=== PATIENT | male | born 1945 | race Caucasian/White ===

== ENCOUNTER → 2016-05-28 | Outpatient (CLI) | payer MEDICARE ==
[~2016-05-28] VITALS: Ht 180.3 cm; Wt 93.0 kg
[~2016-05-28] MED LIST: ALLO300T2 PO; ASPI-586 PO; CHOL500044 PO; CYAN50008 PO; FOLI1TAB24 PO; GEMF600T3 PO; IRON18TA PO; LINA5TAB PO; METH2.5T PO; MULT-1029 PO; NS IV 1000 ML 1,000 ML ONE; OMEG300C3 PO; OXYC-12 PO; SAW450CA4 PO; TAMS0.4C2 PO; TRAM50TA2 PO; TRAZ-28 PO; VITA-37 PO
--- OUTSIDE RECORDS SUMMARY | 2016-05-28 10:37 | XMS REPORT | Continuity of Care Document ---
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 Active 05/25/2006 Medical [facility] Diabetes mellitus type II Active 05/25/2006 Medical 2011 [facility] Diabetes mellitus type 2 (disorder) Active 03/14/2006 Problem 01/01/2016 [facility] HDL deficiency Active 1997 Medical 04/14/2011 [facility] High density lipoprotein deficiency (disorder) Active 03/14/1997 Problem 01/01/2016 [facility] Chronic gout Active 1963 Medical 04/14/2011 [facility] Colitis, Ulcerative Active Medical 04/14/2011 [facility] Psoriasis.. Active 1963 Medical 05/30/2014 [facility] Psoriasis Active 1963 Medical 04/14/2011 [facility] Gout (disorder) Active 1963 Problem 01/01/2016 [facility] Ulcerative colitis (disorder) Active 03/14/1963 Problem [facility] Psoriasis (disorder) Active 03/14/1963 Problem 01/01/2016 [facility] Cervical disc disorder (disorder) Active Problem 2015 [facility] Chronic kidney disease stage 3 (disorder) Active Problem 01/01/2016 [facility] Muscle spasm of cervical muscle of neck (disorder) Active Problem 01/01/2016 [facility] Spinal stenosis in cervical region (disorder) Active Problem 01/01/2016 [facility] Cobalamin deficiency (disorder) Active Problem 2015 [facility] Vitreous opacities (disorder) Active Problem 01/01/2016 Right eye [facility] Vitamin B12 deficiency.. Active Medical 04/14/2011 [facility] Chronic Kidney Disease (CKD), Stage III (Moderate) Active Medical 04/23/2013 [facility] Muscle spasm of cervical muscle of neck Active Medical [facility] Cervical disc disorder Active Medical 07/23/2013 [facility] Spinal stenosis in cervical region Active Medical 2013 [facility] Type 2 diabetes mellitus Active Medical 08/08/2013 [facility] Vitreous opacities Active Medical 12/04/2013 Right eye [facility] Vitamin B12 deficiency Active Medical 04/14/2011 [facility] Medications Medication Details Route Status Patient Instructions Ordering Provider Order Date Source amlodipine 10 mg oral tablet PO Active SETHI 12/04/2013 [facility] Azithromycin 5 Day Dose Pack 250 mg oral tablet Active as directed on package labeling JOSSIE 12/04/2013 [facility] methotrexate 2.5 mg oral tablet PO Active HENRY 12/04/2013 [facility] Flomax 0.4 mg oral capsule PO Active SETHI 10/16/2013 [facility] methotrexate 2.5 mg oral tablet PO Discontinued HENRY 09/21/2013 [facility] folic acid 1 mg oral tablet PO Active HENRY 08/28/2013 [facility] Saw [place] PO Documented 08/27/2013 [facility] Alpha Lipoic Acid PO Documented 08/27/2013 [facility] L-Arginine 500 mg oral capsule PO Documented 08/27/2013 [facility] Vitamin B Complex oral tablet PO Documented 08/27/2013 [facility] calcitriol Discontinued 0.25 mcg PO Mon, Wed, Fri 08/27/2013 [facility] folic acid 1 mg oral tablet PO Discontinued HENRY 08/24/2013 [facility] lisinopril 20 mg oral tablet PO Discontinued 08/20/2013 [facility] diazepam 10 mg oral tablet PO Discontinued 08/20/2013 [facility] Vitamin B-12 Documented taking 3000mcg daily 08/20/2013 [facility] Viagra 100 mg oral tablet PO Active 1 hour before sexual activity SRIDHAR 2013 [facility] tizanidine 4 mg oral tablet PO Active [facility] 08/07[facility]2013 [facility] tizanidine 4 mg oral tablet PO Discontinued FLORINKEN 07/17/2013 [facility] hydrochlorothiazide 25 mg oral tablet PO Active SRIDHAR 07/02/2013 [facility] tramadol 50 mg oral tablet PO Active HENRY 06/29/2013 [facility] methotrexate 2.5 mg oral tablet PO Discontinued HENRY 06/29/2013 [facility] hydrochlorothiazide 12.5 mg oral tablet Discontinued VORAN 06/28/2013 [facility] tramadol 50 mg oral tablet PO Discontinued HENRY 06/25/2013 [facility] Fish Oil 1200 mg oral capsule PO Documented 06/18/2013 [facility] ferrous sulfate 325 mg (65 mg elemental iron) oral delayed release tablet PO Documented 06/18/2013 [facility] Centrum Silver Men's oral tablet Documented 06/18/2013 [facility] glipiZIDE 5 mg oral tablet PO Documented 06/16/2013 [facility] methotrexate 5 mg oral tablet PO Discontinued On Tuesday' s Only 05/22/2013 [facility] folic acid 1 mg oral tablet PO Discontinued 05/22/2013 [facility] allopurinol 300 mg oral tablet PO Active VORAN 04/30/2013 [facility] lisinopril 20 mg oral tablet PO Completed VORAN 04/16/2013 [facility] Restoril 15 mg oral capsule PO Completed VORAN 02/15/2013 [facility] Restoril 15 mg oral capsule PO Discontinued VORAN 02/14/2013 [facility] lisinopril 20 mg oral tablet PO Discontinued VORAN 02/05/2013 [facility] Restoril 15 mg oral capsule PO Discontinued VORAN 01/24/2013 [facility] hydrochlorothiazide 12.5 mg oral capsule Discontinued TAKE ONE CAPSULE BY MOUTH EVERY DAY VORAN 01/24/2013 [facility] lisinopril 20 mg oral tablet PO Discontinued VORAN 01/11/2013 [facility] amlodipine 10 mg oral tablet PO Active VORAN 12/20/2012 [facility] metoprolol tartrate 100 mg oral tablet PO Discontinued SETHI 12/20/2012 [facility] metoprolol tartrate 25 mg oral tablet PO Discontinued VORAN 10/30/2012 [facility] lisinopril 10 mg oral tablet PO Discontinued VORAN 10/29/2012 [facility] amlodipine 5 mg oral tablet PO Discontinued VORAN 10/29/2012 [facility] Flomax 0.4 mg oral capsule PO Discontinued SETHI 10/29/2012 [facility] Flomax 0.4 mg oral capsule PO Discontinued VORAN 10/05/2012 [facility] metoprolol tartrate 25 mg oral tablet PO Discontinued VORAN 10/05/2012 [facility] Pentasa PO Discontinued 10/05/2012 [facility] amlodipine 5 mg oral tablet PO Discontinued VORAN 10/05/2012 [facility] lisinopril 10 mg oral tablet PO Discontinued VORAN 10/05/2012 [facility] selenium 50 mcg oral tablet Discontinued 07/26/2012 [facility] metformin 500 mg oral tablet, extended release PO Discontinued VORAN 05/15/2012 [facility] amlodipine 2.5 mg oral tablet PO Completed VORAN 05/15/2012 [facility] gemfibrozil 600 mg oral tablet PO Active VORAN 05/15/2012 [facility] hydrochlorothiazide-valsartan 12.5 mg-320 mg oral tablet PO Completed VORAN 2012 [facility] Metoprolol Succinate ER 200 mg oral tablet, extended release PO Completed VORAN 05/15 [facility] allopurinol 300 mg oral tablet PO Discontinued VORAN 05/15/2012 [facility] aspirin 81 mg oral tablet PO Documented 05/15/2012 [facility] Viagra 50 mg oral tablet PO Discontinued 1 hour before sexual activity SETHI 2012 [facility] allopurinol 300 mg oral tablet PO Discontinued VORAN 03/21/2012 [facility] Metoprolol Succinate ER 200 mg oral tablet, extended release PO Discontinued VORAN [facility] hydrochlorothiazide-valsartan 12.5 mg-320 mg oral tablet PO Discontinued VORAN 2011 [facility] gemfibrozil 600 mg oral tablet PO Discontinued VORAN 01/13/2012 [facility] metoprolol tartrate 100 mg oral tablet PO Discontinued Pt to check blood pressure dialy for 7 days & call with blood pressure readings VORAN 12/20/2011 [facility] amlodipine 2.5 mg oral tablet PO Discontinued VORAN 11/30/2011 [facility] metoprolol tartrate 100 mg oral tablet PO Discontinued Pt to check blood pressure dialy for 7 days & call with blood pressure readings VORAN 09/03/2011 [facility] gemfibrozil 600 mg oral tablet PO Discontinued VORAN 09/02/2011 [facility] metformin 500 mg oral tablet, extended release PO Discontinued VORAN 09/02/2011 [facility] allopurinol 300 mg oral tablet PO Discontinued VORAN 09/02/2011 [facility] Metoprolol Succinate ER 100 mg oral tablet, extended release PO Discontinued VORAN [facility] Diovan HCT 320 mg-12.5 mg oral tablet PO Discontinued VORAN 09/02/2011 [facility] amlodipine 2.5 mg oral tablet PO Discontinued VORAN 08/03/2011 [facility] hydrochlorothiazide 12.5 mg oral tablet PO Completed VORAN 08/03/2011 [facility] metoprolol succinate 200 mg oral tablet, extended release PO Discontinued VORAN 06/05 [facility] Diovan HCT 320 mg-12.5 mg oral tablet PO Discontinued VORAN 04/16/2011 [facility] metformin 500 mg oral tablet, extended release PO Discontinued VORAN 01/12/2011 [facility] Welchol 625 mg oral tablet PO Completed Pt wanting written script to sent to [facility] [place] 12/02/2010 [facility] Ambien 5 mg oral tablet Discontinued call to [facility] [phone] INFORMATION 11/13/2010 [facility] gemfibrozil 600 mg oral tablet PO Discontinued V[place]AN 09/07/2010 [facility] metoprolol succinate 100 mg oral tablet, extended release PO Discontinued V[place]AN 09/05 [facility] allopurinol 300 mg oral tablet PO Discontinued V[place]AN 09/05/2010 [facility] Vitamin B12 1000 mcg/mL injectable solution IM Discontinued V[place]AN 06/08/2010 [facility] Ambien 5 mg oral tablet Completed [place] 05/13/2010 [facility] Diovan HCT 25 mg-160 mg oral tablet PO Discontinued [facility] 04/2010 [facility] Com[place] 05/11/2010 [facility] [place]ication Completed 05/11/2010 [facility] Enbrel 50 mg/mL subcutaneous solution Completed 05/11/2010 [facility] Vitamin B Complex oral capsule Discontinued 05/11/2010 [facility] potassium gluconate Discontinued 05/11/2010 [facility] Alpha Lipoic Discontinued 05/11/2010 [facility] folic acid 0.8 mg oral tablet Discontinued 05/11/2010 [facility] Vitamin C 1000 mg oral tablet PO Discontinued 05/11/2010 [facility] zinc gluconate 50 mg oral tablet Discontinued 05/11/2010 [facility] ginseng Discontinued 05/11/2010 [facility] Saw [place] Discontinued 05/11/2010 [facility] Garlic oral capsule Discontinued 05/11/2010 [facility] Selenium TR 200 mcg oral tablet Completed 05/11/2010 [facility] MSM Discontinued 05/11/2010 [facility] Milk Thistle oral tablet Discontinued 05/11/2010 [facility] glucosamine Discontinued 05/11/2010 [facility] chromium picolinate Discontinued 05/11/2010 [facility] vitamin A 8000 units oral capsule Discontinued 05/11/2010 [facility] magnesium oxide Discontinued 05/11/2010 [facility] vitamin E 400 intl units oral capsule PO Discontinued 05/11/2010 [facility] Fish Oil oral capsule Discontinued 05/11/2010 [facility] Vitamin D3 1000 intl units oral capsule Documented 05/11/2010 [facility] metformin 500 mg oral tablet, extended release PO Discontinued 05/11/2010 [facility] gemfibrozil 600 mg oral tablet PO Discontinued 05/11/2010 [facility] allopurinol 300 mg oral tablet PO Discontinued 05/11/2010 [facility] metoprolol 100 mg oral tablet, extended release PO Discontinued 05/11/2010 [facility] hydrochlorothiazide-lisinopril Discontinued 05/11/2010 [facility] hydrochlorothiazide 25 mg oral tablet </br>1 Tab, Q24H, PO, 90 Tab, 3 Number of Refills, 3, Route to Pharmacy Electronically, [facility], [id number] Inactive [facility] Vitamin B-12 </br>See Instructions, taking 3000mcg daily, 0 Number of Refills, Instructions Replace Required Details Active [facility] gemfibrozil 600 mg oral tablet </br>2 Tab, daily, PO, 180 Tab, 3 Number of Refills, 3, Route to Pharmacy Electronically, [facility], [id number] Inactive [facility] trazodone 50 mg oral tablet </br>1 Tab, AT BEDTIME, PO, 30 Tab, 1 Number of Refills, 1, [id number] [id number] Inactive [facility] Fish Oil 1200 mg oral capsule </br>1 Cap, BID, PO, 0 Number of Refills Active [facility] ferrous sulfate 325 mg (65 mg elemental iron) oral delayed release tablet </br>1 Tab, Q24H, PO, 0 Number of Refills Active [facility] Centrum Silver Men's oral tablet </br>Maintenance, 06/18/13 12:49:53, 0 Number of Refills Active [facility] lisinopril 20 mg oral tablet </br>1 Tab, daily, PO, 90 Tab, 1 Number of Refills, 1, Route to Pharmacy Electronically, [facility], [id number], TAB Active [facility] folic acid 1 mg oral tablet </br>1 Tab, daily, PO, 90 Tab, 1 Number of Refills, 1, Route to Pharmacy Electronically, [facility], [id number]- [id number], TAB Inactive [facility] Tamsulosin hydrochloride 0.4 MG Oral Capsule [Flomax] </br>1 Cap, Q24H, PO, 90 Cap, 3 Number of Refills, 3, Route to Pharmacy Electronically, [facility], [id number], CAP Inactive [facility] Saw [place] </br>450 mg, daily, PO, 0 Number of Refills Active [facility] Alpha Lipoic Acid </br>600 mg, daily, PO, 0 Number of Refills Active [facility] glipiZIDE 5 mg oral tablet </br>1 Tab, Q24H, PO, 0 Number of Refills Inactive [facility] L-Arginine 500 mg oral capsule </br>1 Cap, daily, PO, 0 Number of Refills Active [facility] Vitamin B Complex oral tablet </br>1 Tab, Q24H, PO, Maintenance, 08/27/13 11:05:53, 0 Number of Refills Active [facility] aspirin 81 mg oral tablet </br>1 Tab, Q24H, PO, 0 Number of Refills Active [facility] amlodipine 10 mg oral tablet </br>1 Tab, daily, PO, 90 Tab, 3 Number of Refills, 3, Route to Pharmacy Electronically, [facility], [id number], TAB Inactive [facility] allopurinol 300 mg oral tablet </br>1 Tab, Q24H, PO, 90 Tab, 3 Number of Refills, 3, Route to Pharmacy Electronically, [facility], [id number] Inactive [facility] methotrexate 2.5 mg oral tablet </br>4 Tab, qWeek, PO, 52 Tab, 0 Number of Refills, 0, [facility], [id number]- [id number] Inactive [facility] Vitamin D3 1000 intl units oral capsule </br>0 Number of Refills Active [facility] traMADOL 50 mg oral tablet, disintegrating </br>See Instructions, 0 Number of Refills, Instructions Replace Required Details Active [facility] nebivolol 5 MG Oral Tablet [Bystolic] </br>1 Tab, Q24H, PO, 0 Number of Refills Active [facility] PO [facility] Allergies, Adverse Reactions, Alerts Substance Category Reaction Severity Reaction type Status Date Reported Comments Source NKA Datatype(AL1.2)-Drug Allergy ACTIVE 04/22/2015 [facility] Immunizations Immunization Date Given Site Status Last Updated Comments Source Tdap 05/15/2012 Right Deltoid diphtheria/pertussis, acel/tetanus Tdap [place] [facility] diphtheria/pertussis, acel/tetanus Tdap 05/15/2012 Right Deltoid completed [place] [facility] no immunization 05/11/2010 Immunization, History no immunization 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 History of Present Illness A 70-year-old male here in followup for generalized psoriasis responsive to methotrexate. I am managing his psoriasis with methotrexate. Blood work was done recently and does have stable creatinine elevation and follows with a [place] history professor. His baseline is around 1.7 or 1.8. Was 1.77 last time. Takes 10 mg of methotrexate a week and folic acid. Rheumatological History In the past week, he reports the following... He states his pain level is at a 5/10 because of his illness (0=No pain, 5= Moderate pain, 10=Severe pain). His acceptable level of pain is 5/10 (0=No pain, 5=Moderate Pain, 10=Severe Pain ). His level of fatigue is rated 0/10, with 0=No Problem and 10=Major Problem. His level depression is rated 0/10 with 0=No Depression and 10=Severe Depression. He rates his ability to rest at night at 0/10 with 0=Sleep is not problem and 10 =Sleep is a major problem. He rates his anxiety at 0/10 with 0=Anxiety is no problem and 10=Anxiety is a major problem. He reports a level of 0/10 regarding trouble with his stomach (ie nausea, heartburn, bloating, etc.). Considering all the ways that his illness affects him, he states that he has felt 5/10 with 0=Very well and 10=Very poor. At this visit, he rates his satisfaction with his health at 3/10 with 0=Very satisfied and 10=Very dissatisfied. He rates his ability to purchase his current medications at 0/10 with 0=No difficulty, 5=Some difficulty, and 10=Extreme difficulty. FN (range 0 - 10)=0.33 PS (range 0 - 10)=1.1 RAPID3 (range 0 - 10)=3.44 Pain Assessment Cognitive Status: Independent, decisions consistent/reasonable Intensity: 6 Location: Foot Laterality: Right Review of Systems Changes From Last Visit: No Constitutional Symptoms Recent Weight Change: No Fatigue/Weakness: No Ears/Nose/Throat Hearing Loss or Ringing: Yes Chronic Sinus Problems: No Oral Ulcers: No Swollen Glands: No Dry Mouth: No Eyes Dry Eyes: No Red Eyes: No Cardiovascular Heart Trouble: No Palpitation: No Respiratory Chronic or Frequent Coughs: No Shortness Of Breath: No Asthma: No Chest Pain With Deep Breath: No Gastrointestinal Heartburn: No Ulcers: No Genitourinary Frequent Urination: No Blood In Urine: No Musculoskeletal Morning Stiffness Greater Than One Hour: No Swollen Joints: No Painful Joints: Yes Warm Joints: No Muscle Weakness: No Muscle Pain: Yes Skin Facial Rashes: Yes Hair Loss: No Unusual Rashes Related To Sunlight: No Color Changes Of Hands: No Neurological Seizures: No Frequent Recurring Headaches: No Stroke: No Psychiatric Nervousness: No Depression: No Endocrine Diabetes: Yes Heat or Cold Intolerance: No Hematological/Lymphatic History Of Anemia: No History Of Low White Count: No History Of Low Platelet Count: No History Of Blood Clots: No Miscarriages: No Immunological/Allergic History Of Abnormal Arthritis Blood Tests: No History Of A Positive ROSSI Blood Test: No Allergies NKA Current Medications allopurinol 300 mg oral tablet (allopurinol), 300 mg, Oral, Every 24 hours Alpha Lipoic Acid (alpha-lipoic acid), 600 mg, Oral, Daily amlodipine 10 mg oral tablet (amlodipine), 10 mg, Oral, Daily aspirin 81 mg oral tablet (aspirin), 81 mg, Oral, Every 24 hours Bystolic 5 mg oral tablet (nebivolol), 5 mg, Oral, Every 24 hours Centrum Silver Men's oral tablet (multivitamin with minerals) ferrous sulfate 325 mg (65 mg elemental iron) oral delayed release tablet ( ferrous sulfate), 325 mg, Oral, Every 24 hours Fish Oil 1200 mg oral capsule (omega-3 polyunsaturated fatty acids), 1,200 mg, Oral, 2 times a day Flomax 0.4 mg oral capsule (tamsulosin), 0.4 mg, Oral, Every 24 hours, Comment: faxed request from [facility] folic acid 1 mg oral tablet (folic acid), 1 mg, Oral, Daily gemfibrozil 600 mg oral tablet (gemfibrozil), 1,200 mg, Oral, Daily glipiZIDE 5 mg oral tablet (glipizide), 5 mg, Oral, Every 24 hours hydrochlorothiazide 25 mg oral tablet (hydrochlorothiazide), 25 mg, Oral, Every 24 hours L-Arginine 500 mg oral capsule (arginine), 500 mg, Oral, Daily lisinopril 20 mg oral tablet (lisinopril), 20 mg, Oral, Daily methotrexate 2.5 mg oral tablet (methotrexate), 10 mg, Oral, Every week, Comment : called to [facility] blaine Norriso ([place]), 450 mg, Oral, Daily traMADOL 50 mg oral tablet, disintegrating (tramadol) trazodone 50 mg oral tablet (trazodone), 50 mg, Oral, At bedtime Vitamin B Complex oral tablet (multivitamin), 1 Tab, Oral, Every 24 hours Vitamin B-12 (cyanocobalamin), taking 3000mcg daily Vitamin D3 1000 intl units oral capsule (cholecalciferol), Comment: 2 capsules every AM Problems and Past Medical History Active Cervical neck pain with evidence of disc disease Cervical spinal stenosis Chronic gout: Onset on 1963. Chronic Kidney Disease (CKD), Stage III (Moderate) Colitis, Ulcerative: Onset on 1963. Diabetes mellitus type II: Onset on 2006. Erectile dysfunction associated with type 2 diabetes mellitus Floaters HDL deficiency: Onset on 1997. Muscle spasm of cervical muscle of neck Psoriasis: Onset on 1963. Vitamin B12 deficiency Family History Heart disease.. Mother High blood pressure.. Father Procedure History resection of small instestine for ileitis with appendectomy x 2 surgeries at 03/1964. cholestectomy at 03/14/1984. Hx prostate biopsy Colonoscopy * at 05/25/2010. resection of small intestines at 10/12/2012. Social History Alcohol Use: Denies Caffeine Use: Current Caffeine Type: Soda Caffeine Frequency: Daily Tobacco/Nicotine Usage: Former Tobacco/Nicotine Type: Cigarettes Estimated Last Tobacco Usage Date: 09/11/12 Packs Per Day: 1 Number of Years-Tob Use: 40 Total Pack Years: 40 Recreational Drug Use: Denies Education Attained: College Physical Examination TEMP BP Pulse RR MAP O2 Sat 36.6 138/72 18 94 Blood Pressure Location: Left arm Weight Height BMI BSA 99.7 kg (219.80 lbs) 180 cm 30.8 kg/m2 2.2327 m2 General: Alert and oriented x3. No acute distress. Psychiatric: Oriented to time and place. Appropriate mood and affect. Skin: No rash. Eyes: Clear. Mouth: No oral ulcers. Lymphatics: No abnormal lymph nodes. Cardiovascular: S1 and S2, regular rate and rhythm with no murmurs. Respiratory: Bilaterally clear to auscultation with no added sounds. Gastrointestinal: Abdomen is soft. No focal tenderness. Liver and spleen nonpalpable. Musculoskeletal: No swollen or tender joints; no synovitis of any joints noted. Range of motion of joints within normal limits. [employer] strength equal bilaterally. Neurologic: Normal muscle strength, 5/5 upper and lower limbs bilaterally. Extremities: No clubbing, cyanosis or edema. Impression 1. Generalized psoriasis (L40.1). A 70-year-old male with plaque psoriasis, under good control. Plan Orders this visit: CBC with Diff -Request CHEM 12 (CMP)- Request Follow Up 6 Months -Request Future Orders: CBC with Diff - 06/22/16 09:00 CHEM12 (CMP) - 03/30/16 09:00 1. Psoriasis. -Continue methotrexate 10 mg p.o. every week and folic acid. -Blood work in 3 months and then see back in 6 mo TR: [id number] HILDA#: [id number] [Electronically Signed on 01.05.2016 04:24 PM] Danelle Henry DO FACR </br> 12/31/2015 [Electronically Signed on 01.05.2016 04:24 PM] Danelle Henry DO FACEmelia [facility] CHEM12 eGFR 38 mL/min >=60 12/24/2015 LOW Estimated eGFR Non calculated using MDRD study equation Verified by Discern Expert. The MDRD GFR formula is valid only for adults between 18 and 85 years of age. [facility] CHEM12 Bili Total 0.5 mg/dL 0.2 - 1.2 12/24/2015 N [facility] -RBC Morphology RBC Morph Normal Normal 12/24/2015 N Adela Expert RBC morphology is graded as 1, 2 , or 3 indicating a level of abnormality. 1=few/slight 2=moderate 3=marked/many [facility] -Auto Diff Blast/Atyp Lymph 40 12/24/2015 NA [facility] CBC with Diff MPV 10.0 5.0 - 30.0 12/24/2015 N [facility] CHEM12 eGFR () 44 mL/min >=60 10/20/2015 LOW Estimated GFR for an calculated using MDRD study equation. Verified by Discern Expert. [facility] CHEM12 Albumin Level 3.4 gm/ dL 3.4 - 5.0 10/20/2015 N [facility] -RBC Morphology RBC Morph Normal Normal 10/20/2015 N Discern Expert RBC morphology is graded as 1, 2 , or 3 indicating a level of abnormality. 1=few/slight 2=moderate 3=marked/many [facility] -Auto Diff Abs [place] .46 x10^3 /uL .00 - .90 10/20/2015 N [facility] CBC with Diff MCH 30.6 pg 27.0 - 31.0 10/20/2015 N [facility] Office/Clinic Notes Office/Clinic Notes [facility] [address] [place] [address] [address] [place] [address] [facility] PATIENT: NAJMA KELSEY MR #: [id number] : 1945 DATE SEEN: 08/07/2015 Chief Complaint Patient is here for a followup on rheumatoid arthritis. History of Present Illness This is a 70-year-old male here in followup for psoriasis. I am managing his methotrexate. Currently is doing well. Has chronic kidney disease for which he follows with a [place] history professor. Creatinine was 1.89. This is better than last time , which was 2.04. All of these were in the norm range for him, which is 1.92. He currently takes methotrexate 10 mg oral per week plus folic acid. Psoriasis is under good control. Unfortunately, he recently had a rib fracture when he fell over a tree root. Saw his primary, who is managing his pain. Rheumatological History In the past week, he reports the following... He states his pain level is at a 9/10 because of his illness (0=No pain, 5= Moderate pain, 10=Severe pain). His acceptable level of pain is 5/10 (0=No pain, 5=Moderate Pain, 10=Severe Pain ). His level of fatigue is rated 5/10, with 0=No Problem and 10=Major Problem. His level depression is rated 0/10 with 0=No Depression and 10=Severe Depression. He rates his ability to rest at night at 5/10 with 0=Sleep is not problem and 10 =Sleep is a major problem. He rates his anxiety at 0/10 with 0=Anxiety is no problem and 10=Anxiety is a major problem. He reports a level of 0/10 regarding trouble with his stomach (ie nausea, heartburn, bloating, etc.). Considering all the ways that his illness affects him, he states that he has felt 3/10 with 0=Very well and 10=Very poor. At this visit, he rates his satisfaction with his health at 2/10 with 0=Very satisfied and 10=Very dissatisfied. He rates his ability to purchase his current medications at 0/10 with 0=No difficulty, 5=Some difficulty, and 10=Extreme difficulty. FN (range 0 - 10)=0.33 PS (range 0 - 10)=1.1 RAPID3 (range 0 - 10)=4.11 Pain Assessment Cognitive Status: Independent, decisions consistent/reasonable Intensity: 7 Location: Generalized Review of Systems Constitutional Symptoms Recent Weight Change: No Fatigue/Weakness: No Ears/Nose/Throat Hearing Loss or Ringing: Yes Chronic Sinus Problems: No Oral Ulcers: No Swollen Glands: No Dry Mouth: No Eyes Dry Eyes: No Red Eyes: No Cardiovascular Heart Trouble: No Palpitation: No Respiratory Chronic or Frequent Coughs: No Shortness Of Breath: No Asthma: No Chest Pain With Deep Breath: No Gastrointestinal Heartburn: No Ulcers: No Genitourinary Frequent Urination: No Blood In Urine: No Musculoskeletal Morning Stiffness Greater Than One Hour: No Swollen Joints: No Painful Joints: Yes Warm Joints: No Muscle Weakness: No Muscle Pain: Yes Skin Facial Rashes: Yes Hair Loss: No Unusual Rashes Related To Sunlight: No Color Changes Of Hands: No Neurological Seizures: No Frequent Recurring Headaches: No Stroke: No Psychiatric Nervousness: No Depression: No Endocrine Diabetes: Yes Heat or Cold Intolerance: No Hematological/Lymphatic History Of Anemia: No History Of Low White Count: No History Of Low Platelet Count: No History Of Blood Clots: No Miscarriages: No Immunological/Allergic History Of Abnormal Arthritis Blood Tests: No History Of A Positive ROSSI Blood Test: No Allergies NKA Current Medications allopurinol 300 mg oral tablet (allopurinol), 300 mg, Oral, Every 24 hours Alpha Lipoic Acid (alpha-lipoic acid), 600 mg, Oral, Daily amlodipine 10 mg oral tablet (amlodipine), 10 mg, Oral, Daily aspirin 81 mg oral tablet (aspirin), 81 mg, Oral, Every 24 hours Bystolic 5 mg oral tablet (nebivolol), 5 mg, Oral, Every 24 hours Centrum Silver Men's oral tablet (multivitamin with minerals) ferrous sulfate 325 mg (65 mg elemental iron) oral delayed release tablet ( ferrous sulfate), 325 mg, Oral, Every 24 hours Fish Oil 1200 mg oral capsule (omega-3 polyunsaturated fatty acids), 1,200 mg, Oral, 2 times a day Flomax 0.4 mg oral capsule (tamsulosin), 0.4 mg, Oral, Every 24 hours, Comment: faxed request from [facility] folic acid 1 mg oral tablet (folic acid), 1 mg, Oral, Daily gemfibrozil 600 mg oral tablet (gemfibrozil), 1,200 mg, Oral, Daily glipiZIDE 5 mg oral tablet (glipizide), 5 mg, Oral, Every 24 hours hydrochlorothiazide 25 mg oral tablet (hydrochlorothiazide), 25 mg, Oral, Every 24 hours L-Arginine 500 mg oral capsule (arginine), 500 mg, Oral, Daily lisinopril 20 mg oral tablet (lisinopril), 20 mg, Oral, Daily methotrexate 2.5 mg oral tablet (methotrexate), 10 mg, Oral, Every week, Comment : called to [facility] Saw [place] (saw palmetto), 450 mg, Oral, Daily traMADOL 50 mg oral tablet, disintegrating (tramadol) trazodone 50 mg oral tablet (trazodone), 50 mg, Oral, At bedtime Vitamin B Complex oral tablet (multivitamin), 1 Tab, Oral, Every 24 hours Vitamin B-12 (cyanocobalamin), taking 3000mcg daily Vitamin D3 1000 intl units oral capsule (cholecalciferol), Comment: 2 capsules every AM Problems and Past Medical History Active Cervical neck pain with evidence of disc disease Cervical spinal stenosis Chronic gout: Onset on 1963. Chronic Kidney Disease (CKD), Stage III (Moderate) Colitis, Ulcerative: Onset on 1963. Diabetes mellitus type II: Onset on 2006. Erectile dysfunction associated with type 2 diabetes mellitus Floaters HDL deficiency: Onset on 1997. Muscle spasm of cervical muscle of neck Psoriasis: Onset on 1963. Vitamin B12 deficiency Procedure History resection of small intestine for ileitis with appendectomy x 2 surgeries at 03/1964. cholecystectomy at 03/14/1984. Hx prostate biopsy Colonoscopy * at 05/25/2010. resection of small intestines at 10/12/2012. Social History Alcohol Use: Denies Caffeine Use: Current Caffeine Type: Soda Caffeine Frequency: Daily Tobacco/Nicotine Usage: Former Tobacco/Nicotine Type: Cigarettes Estimated Last Tobacco Usage Date: 09/11/12 Packs Per Day: 1 Number of Years-Tob Use: 40 Total Pack Years: 40 Recreational Drug Use: Denies Physical Examination TEMP BP Pulse RR MAP O2 Sat 36.5 164/90 47 18 114.67 98 Blood Pressure Location: Left arm Oxygen Therapy: Room air Weight Height BMI BSA 98.0 kg (216.05 lbs) 180 cm 30.2 kg/m2 2.2136 m2 General: Alert and oriented x3. No acute distress. Psychiatric: Oriented to time and place. Appropriate mood and affect. Skin: No signs of active psoriasis. Eyes: Clear. Mouth: No oral ulcers. Lymphatics: No abnormal lymph nodes. Cardiovascular: S1 and S2, regular rate and rhythm with no murmurs. Respiratory: Bilaterally clear to auscultation with no added sounds. Gastrointestinal: Abdomen is soft. No focal tenderness. Liver and spleen nonpalpable. Musculoskeletal: No swollen or tender joints; no synovitis of any joints noted. Range of motion of joints within normal limits. Global Rec[employer]iter strength equal bilaterally. Neurologic: Normal muscle strength, 5/5 upper and lower limbs bilaterally. Extremities: No clubbing, cyanosis or edema. Impression 1. Psoriasis (L40.9). This is a 70-year-old male with psoriasis. Plan Orders this visit: CBC with Diff -Request CHEM 12 (CMP)- Request 1. Psoriasis. -Continue methotrexate 10 mg oral per week and folic acid. -I reviewed CBC and Chem-12. -CBC and Chem-12 in 3 months. Return to see me in 6 months. TR: LUIS HILDA#: [id number] [Electronically Signed on 08.12.2015 08:53 AM] Danelle Henry, DO FACR </br> 08/07/2015 [Electronically Signed on 08.12.2015 08:53 AM] Danelle Henry, DO FACR [facility] CHEM12 eGFR () 43 mL/min >=60 07/29/2015 LOW Estimated GFR for an calculated using MDRD study equation. Verified by Discern Expert. [facility] CHEM12 eGFR 36 mL/min >=60 07/29/2015 LOW Estimated eGFR Non calculated using MDRD study equation Verified by Discern Expert. The MDRD GFR formula is valid only for adults between 18 and 85 years of age. [facility] CHEM12 TCO2 (Bicarbonate) 21 mmol/L 21 - 30 07/29/2015 N [facility] -RBC Morphology RBC Morph Normal Normal 07/29/2015 N Discern Expert RBC morphology is graded as 1, 2 , or 3 indicating a level of abnormality. 1=few/slight 2=moderate 3=marked/many [facility] -Auto Diff Abs [place] .62 x10^3 /uL .00 - .90 07/29/2015 N [facility] CBC with Diff RDW-SD 49 07/29/2015 NA [facility] -RBC Morphology RBC Morph Normal Normal 04/22/2015 N Discern Expert RBC morphology is graded as 1, 2 , or 3 indicating a level of abnormality. 1=few/slight 2=moderate 3=marked/many [facility] -Auto Diff Eos 3 % 04/22/2015 NA [facility] CBC with Diff MCH 30.3 pg 27.0 - 31.0 04/22/2015 N [facility] CHEM12 eGFR 40 mL/min >=60 04/22/2015 LOW Estimated eGFR Non calculated using MDRD study equation Verified by Discern Expert. The MDRD GFR formula is valid only for adults between 18 and 85 years of age. [facility] CHEM12 Potassium 4.1 mmol/L 3.5 - 5.0 04/22/2015 N [facility] Office/Clinic Notes Office/Clinic Notes [facility] [address] [address] [address] [place] [id number] [facility] PATIENT: NAJMA KELSEY MR #: [id number] : 1945 DATE SEEN: 01/29/2015 Chief Complaint Patient is here today for a follow up on psoriatic Arthritis. He denies pain at this time. History of Present Illness This is a 69-year-old male who I am seeing for psoriasis. I am helping man his methotrexate. The patient does see Dr. Fabricio Sheffield now for his skin disease, but as far as systemic monitoring of his psoriasis, I am doing this. The patient does not have any psoriatic arthritis. Is status post of an injury of his left shoulder that happened when he was visiting his significant other in [facility]. Since then no surgery was done, but they have recommended PT ( physical therapy). He has some increased range of motion, but still a problem. The last blood work was done less than a month and did show that his creatinine had inched up to 2.04. He follows closely with a [place] history professor who is monitoring this and apparently for them 1.9-2.0 is normal for the patient. Rheumatological History In the past week, he reports the following... He states his pain level is at a 0/10 because of his illness (0=No pain, 5= Moderate pain, 10=Severe pain). His acceptable level of pain is 0/10 (0=No pain, 5=Moderate Pain, 10=Severe Pain ). His level of fatigue is rated 0/10, with 0=No Problem and 10=Major Problem. His level depression is rated 0/10 with 0=No Depression and 10=Severe Depression. He rates his ability to rest at night at 0/10 with 0=Sleep is not problem and 10 =Sleep is a major problem. He rates his anxiety at 0/10 with 0=Anxiety is no problem and 10=Anxiety is a major problem. He reports a level of 0/10 regarding trouble with his stomach (ie nausea, heartburn, bloating, etc.). Considering all the ways that his illness affects him, he states that he has felt 0/10 with 0=Very well and 10=Very poor. At this visit, he rates his satisfaction with his health at 0/10 with 0=Very satisfied and 10=Very dissatisfied. He rates his ability to purchase his current medications at 0/10 with 0=No difficulty, 5=Some difficulty, and 10=Extreme difficulty. FN (range 0 - 10)=0.33 PS (range 0 - 10)=1.1 RAPID3 (range 0 - 10)=0.11 Review of Systems Changes From Last Visit: No Constitutional Symptoms Recent Weight Change: No Fatigue/Weakness: No Ears/Nose/Throat Hearing Loss or Ringing: Yes Chronic Sinus Problems: No Oral Ulcers: No Swollen Glands: No Dry Mouth: No Eyes Dry Eyes: No Red Eyes: No Cardiovascular Heart Trouble: No Palpitation: No Respiratory Chronic or Frequent Coughs: No Shortness Of Breath: No Asthma: No Chest Pain With Deep Breath: No Gastrointestinal Heartburn: No Ulcers: No Genitourinary Frequent Urination: No Blood In Urine: No Musculoskeletal Morning Stiffness Greater Than One Hour: No Swollen Joints: No Painful Joints: Yes Warm Joints: No Muscle Weakness: No Muscle Pain: Yes Skin Facial Rashes: Yes Hair Loss: No Unusual Rashes Related To Sunlight: No Color Changes Of Hands: No Neurological Seizures: No Frequent Recurring Headaches: No Stroke: No Psychiatric Nervousness: No Depression: No Endocrine Diabetes: Yes Heat or Cold Intolerance: No Hematological/Lymphatic History Of Anemia: No History Of Low White Count: No History Of Low Platelet Count: No History Of Blood Clots: No Miscarriages: No Immunological/Allergic History Of Abnormal Arthritis Blood Tests: No History Of A Positive ROSSI Blood Test: No Allergies NKA Current Medications allopurinol 300 mg oral tablet (allopurinol), 300 mg, Every 24 hours Alpha Lipoic Acid (alpha-lipoic acid), 600 mg, Daily amlodipine 10 mg oral tablet (amlodipine), 10 mg, Daily aspirin 81 mg oral tablet (aspirin), 81 mg, Every 24 hours Bystolic 5 mg oral tablet (nebivolol), 5 mg, Every 24 hours Centrum Silver Men's oral tablet (multivitamin with minerals) ferrous sulfate 325 mg (65 mg elemental iron) oral delayed release tablet ( ferrous sulfate), 325 mg, Every 24 hours Fish Oil 1200 mg oral capsule (omega-3 polyunsaturated fatty acids), 1,200 mg, 2 times a day Flomax 0.4 mg oral capsule (tamsulosin), 0.4 mg, Every 24 hours, Comment: faxed request from [facility] folic acid 1 mg oral tablet (folic acid), 1 mg, Daily gemfibrozil 600 mg oral tablet (gemfibrozil), 1,200 mg, Daily glipiZIDE 5 mg oral tablet (glipizide), 5 mg, Every 24 hours hydrochlorothiazide 25 mg oral tablet (hydrochlorothiazide), 25 mg, Every 24 hours L-Arginine 500 mg oral capsule (arginine), 500 mg, Daily lisinopril 20 mg oral tablet (lisinopril), 20 mg, Daily Different than prescribed: Taken twice daily. methotrexate 2.5 mg oral tablet (methotrexate), 10 mg, Every week Saw [place] (saw palmetto), 450 mg, Daily trazodone 50 mg oral tablet (trazodone), 50 mg, At bedtime Vitamin B Complex oral tablet (multivitamin), 1 Tab, Every 24 hours Vitamin B-12 (cyanocobalamin), taking 3000mcg daily Vitamin D3 1000 intl units oral capsule (cholecalciferol), Comment: 2 capsules every AM Problems and Past Medical History Active Cervical neck pain with evidence of disc disease Cervical spinal stenosis Chronic gout: Onset on 1963. Chronic Kidney Disease (CKD), Stage III (Moderate) Colitis, Ulcerative: Onset on 1963. Diabetes mellitus type II: Onset on 2006. Erectile dysfunction associated with type 2 diabetes mellitus Floaters HDL deficiency: Onset on 1997. Muscle spasm of cervical muscle of neck Psoriasis: Onset on 1963. Vitamin B12 deficiency Procedure History resection of small intestine for ileitis with appendectomy x 2 surgeries at 03/1964. cholestectomy at 03/14/1984. Hx prostate biopsy Colonoscopy * at 05/25/2010. resection of small intestines at 10/12/2012. Social History Alcohol Use: Denies Caffeine Use: Current Caffeine Type: Soda Caffeine Frequency: Daily Tobacco/Nicotine Usage: Former Tobacco/Nicotine Type: Cigarettes Estimated Last Tobacco Usage Date: 09/11/12 Packs Per Day: 1 Number of Years-Tob Use: 40 Total Pack Years: 40 Exposure to Tobacco Smoke: Patient smokes Physical Examination TEMP BP Pulse RR MAP O2 Sat 36.6 134/80 58 20 98 Blood Pressure Location: Right arm Weight Height BMI BSA 95.9 kg (211.42 lbs) 180 cm 29.6 kg/m2 2.1897 m2 General: Alert and oriented x3. No acute distress. Psychiatric: Oriented to time and place. Appropriate mood and affect. Skin: No rash. Eyes: Clear. Mouth: No oral ulcers. Lymphatics: No abnormal lymph nodes. Cardiovascular: S1 and S2, regular rate and rhythm with no murmurs. Respiratory: Bilaterally clear to auscultation with no added sounds. Gastrointestinal: Abdomen is soft. No focal tenderness. Liver and spleen nonpalpable. Musculoskeletal: No swollen or tender joints; no synovitis of any joints noted. Global Recruiter strength equal bilaterally. Decreased range of motion of the left shoulder. Neurologic: Normal muscle strength, 5/5 upper and lower limbs bilaterally. Extremities: No clubbing, cyanosis or edema. Impression 1. Psoriasis (L40.9). 2. Medication monitoring encounter (Z51.81). A 69-year-old male who is here today in followup for psoriasis and medication monitoring of his methotrexate. Plan Orders this visit: CBC with Diff -Request CHEM 12 (CMP)- Request Follow Up 6 Months -Request 1. Psoriasis. Continue methotrexate 4 pills by mouth each week plus folic acid 1 mg daily. CBC and Chem-12 in 3 months. Return to clinic in 6 months. TR: CARMEN HILDA#: [id number] [Electronically Signed on 02.04.2015 04:51 PM] Danelle Henry DO FACR </br> 01/29/2015 [Electronically Signed on 02.04.2015 04:51 PM] Danelle Henry DO FACR [facility] -Auto Diff Segs 65 % 01/01/2015 NA [facility] -RBC Morphology RBC Morph Normal Normal 01/01/2015 N [facility] CBC with Diff MCHC 32.0 gm/ dL 31.0 - 36.5 01/01/2015 N [facility] CHEM12 eGFR 33 mL/min >=60 01/01/2015 LOW Estimated eGFR Non calculated using MDRD study equation Verified by Discern Expert. The MDRD GFR formula is valid only for adults between 18 and 85 years of age. [facility] CHEM12 Potassium 4.3 mmol/L 3.5 - 5.0 01/01/2015 N [facility] -Auto Diff Abs Baso 0.040 thous/uL 0.000 - 0.200 2014 N [facility] CBC with Diff RBC 3.79 x10^6/ uL 4.60 - 6.20 10/15/2014 LOW [facility] Manual Differential Morphology Aniso 1+ 10/15/2014 ABN [facility] CHEM12 eGFR 36 mL/min >=60 10/15/2014 LOW Estimated eGFR Non calculated using MDRD study equation Verified by Discern Expert. The MDRD GFR formula is valid only for adults between 18 and 85 years of age. [facility] CHEM12 Glucose Level 166 mg/ dL 60 - 99 10/15/2014 UT [facility] Office/Clinic Notes Office/Clinic Notes [facility] [address] [address] [address] [place] [address] [facility] PATIENT: NAJMA KELSEY MR #: [id number] : 1945 DATE SEEN: 07/31/2014 Chief Complaint Patient is here for follow up, shoulder pain and History of Present Illness A 69-year-old male here in followup for psoriasis. Previously had a left shoulder injury, that ended up being a fracture. Did not get this fixed, now can only abduct to about 20 degrees. Was told by a surgeon, there was nothing else that could be done. Psoriasis is doing well. Methotrexate is stable at 4 pills by mouth every week. Blood work done on July 17, 2014, is also stable. Does see a [employer] professor. His creatinine is 1.56. Rheumatological History In the past week, he reports the following... He states his pain level is at a 5/10 because of his illness (0=No pain, 5= Moderate pain, 10=Severe pain). His acceptable level of pain is 3/10 (0=No pain, 5=Moderate Pain, 10=Severe Pain ). His level of fatigue is rated 3/10, with 0=No Problem and 10=Major Problem. His level depression is rated 0/10 with 0=No Depression and 10=Severe Depression. He rates his ability to rest at night at 5/10 with 0=Sleep is not problem and 10 =Sleep is a major problem. He rates his anxiety at 0/10 with 0=Anxiety is no problem and 10=Anxiety is a major problem. He reports a level of 0/10 regarding trouble with his stomach (ie nausea, heartburn, bloating, etc.). Considering all the ways that his illness affects him, he states that he has felt 1/10 with 0=Very well and 10=Very poor. At this visit, he rates his satisfaction with his health at 1/10 with 0=Very satisfied and 10=Very dissatisfied. He rates his ability to purchase his current medications at 0/10 with 0=No difficulty, 5=Some difficulty, and 10=Extreme difficulty. FN (range 0 - 10)=0.33 PS (range 0 - 10)=1.1 RAPID3 (range 0 - 10)=2.11 Review of Systems Constitutional Symptoms Recent Weight Change: No Fatigue/Weakness: No Ears/Nose/Throat Hearing Loss or Ringing: Yes Chronic Sinus Problems: No Oral Ulcers: No Swollen Glands: No Dry Mouth: No Eyes Dry Eyes: No Red Eyes: No Cardiovascular Heart Trouble: No Palpitation: No Respiratory Chronic or Frequent Coughs: No Shortness Of Breath: No Asthma: No Chest Pain With Deep Breath: No Gastrointestinal Heartburn: No Ulcers: No Genitourinary Frequent Urination: No Blood In Urine: No Musculoskeletal Morning Stiffness Greater Than One Hour: No Swollen Joints: No Painful Joints: Yes Warm Joints: No Muscle Weakness: No Muscle Pain: Yes Skin Facial Rashes: Yes Hair Loss: No Unusual Rashes Related To Sunlight: No Color Changes Of Hands: No Neurological Seizures: No Frequent Recurring Headaches: No Stroke: No Psychiatric Nervousness: No Depression: No Endocrine Diabetes: Yes Heat or Cold Intolerance: No Hematological/Lymphatic History Of Anemia: No History Of Low White Count: No History Of Low Platelet Count: No History Of Blood Clots: No Miscarriages: No Immunological/Allergic History Of Abnormal Arthritis Blood Tests: No History Of A Positive ROSSI Blood Test: No Allergies NKA Current Medications allopurinol 300 mg oral tablet (allopurinol), 300 mg, Every 24 hours Alpha Lipoic Acid (alpha-lipoic acid), 600 mg, Daily amlodipine 10 mg oral tablet (amlodipine), 10 mg, Daily aspirin 81 mg oral tablet (aspirin), 81 mg, Every 24 hours Centrum Silver Men's oral tablet (multivitamin with minerals) ferrous sulfate 325 mg (65 mg elemental iron) oral delayed release tablet ( ferrous sulfate), 325 mg, Every 24 hours Fish Oil 1200 mg oral capsule (omega-3 polyunsaturated fatty acids), 1,200 mg, 2 times a day Flomax 0.4 mg oral capsule (tamsulosin), 0.4 mg, Every 24 hours, Comment: faxed request from [facility] folic acid 1 mg oral tablet (folic acid), 1 mg, Daily gemfibrozil 600 mg oral tablet (gemfibrozil), 1,200 mg, Daily glipiZIDE 5 mg oral tablet (glipizide), 5 mg, Every 24 hours hydrochlorothiazide 25 mg oral tablet (hydrochlorothiazide), 25 mg, Every 24 hours L-Arginine 500 mg oral capsule (arginine), 500 mg, Daily lisinopril 20 mg oral tablet (lisinopril), 20 mg, Daily methotrexate 2.5 mg oral tablet (methotrexate), 10 mg, Every week Saw [place] (saw palmetto), 450 mg, Daily tizanidine 4 mg oral tablet (tizanidine), 4 mg, PRN, 2 times a day Not taking tramadol 50 mg oral tablet (tramadol), 50 mg, PRN, At bedtime trazodone 50 mg oral tablet (trazodone), 50 mg, At bedtime Viagra 100 mg oral tablet (sildenafil), 100 mg, PRN, Daily Vitamin B Complex oral tablet (multivitamin), 1 Tab, Every 24 hours Vitamin B-12 (cyanocobalamin), taking 3000mcg daily Vitamin D3 1000 intl units oral capsule (cholecalciferol), Comment: 2 capsules every AM Problems and Past Medical History Active Cervical neck pain with evidence of disc disease Cervical spinal stenosis Chronic gout: Onset on 1963. Chronic Kidney Disease (CKD), Stage III (Moderate) Colitis, Ulcerative: Onset on 1963. Diabetes mellitus type II: Onset on 2006. Erectile dysfunction associated with type 2 diabetes mellitus Floaters HDL deficiency: Onset on 1997. Muscle spasm of cervical muscle of neck Psoriasis: Onset on 1963. Vitamin B12 deficiency Procedure History resection of small intestine for ileitis with appendectomy x 2 surgeries at 03/1964. cholestectomy at 03/14/1984. Hx prostate biopsy Colonoscopy * at 05/25/2010. resection of small intestines at 10/12/2012. Social History Alcohol Use: Denies Caffeine Use: Current Caffeine Type: Soda Caffeine Frequency: Daily Current Tobacco Usage: Former Exposure to Tobacco Smoke: Patient smokes Recreational Drug Use: Denies Smoking Status: Former smoker Physical Examination TEMP BP Pulse RR MAP O2 Sat 36.7 130/84 60 20 99.33 Weight Height BMI BSA 93.0 kg (205.03 lbs) 180 cm 28.7 kg/m2 2.1564 m2 General: Alert and oriented x 3. No acute distress. Psychiatric: Oriented to time and place. Appropriate mood and affect. Skin: The patient has some scattered psoriatic lesions on his MCPs ( metacarpophalangeals). Eyes: Clear. Mouth: No oral ulcers. Lymphatics: No abnormal lymph nodes. Cardiovascular: S1 and S2, regular rate and rhythm with no murmurs. Respiratory: Bilaterally clear to auscultation with no added sounds. Gastrointestinal: Abdomen is soft. No focal tenderness. Liver and spleen nonpalpable. Musculoskeletal: No swollen or tender joints; no synovitis of any joints noted. Range of motion of joints within normal limits. Global Recruiter strength equal bilaterally. Neurologic: Normal muscle strength 5/5 upper and lower limbs bilaterally. Extremities: No clubbing, cyanosis or edema. Impression 1. Psoriasis (696.1). A pleasant 69-year-old male here in followup for psoriasis, as well as left shoulder pain, due to a previous injury. Also has a trigger finger that I have injected. Everything is stable. Plan 1. Psoriasis. Continue methotrexate 4 pills by mouth every week. Continue folic acid. TR: [id number] HILDA#: [id number] [Electronically Signed on 08.07.2014 03:55 PM] Danelle Henry, DO FACR </br> 07/31/2014 [Electronically Signed on 08.07.2014 03:55 PM] Danelle Henry, DO FACR [facility] -Auto Diff Abs Baso 0.030 thous/uL 0.000 - 0.200 2014 N [facility] Care -RBC Morphology RBC Morph Normal Normal 07/17/2014 N [facility] CBC with Diff Platelet 254 x10^3/uL 150 - 400 2014 N [facility] CHEM12 eGFR 44 mL/min >=60 07/17/2014 LOW Estimated eGFR Non calculated using MDRD study equation Verified by Discern Expert. The MDRD GFR formula is valid only for adults between 18 and 85 years of age. [facility] CHEM12 Calcium 8.6 mg/dL 8.5 - 10.1 07/17/2014 N [facility] Office/Clinic Notes Office/Clinic Notes [facility] at [address] [phone] PATIENT: NAJMA KELSEY MR #: [id number] : 1945 DATE SEEN: 05/29/2014 Chief Complaint Rich is here today for a follow up from [facility] for pneumonia. Additional Information: pharmacy: [facility] [address] History of Present Illness Najma presents to the clinic for follow up hospitalization at [facility] secondary to having right middle lobe pneumonia. Patient was hospitalized from May 05, 2014, to May 09, 2014, secondary to having pleuritic chest pain and fever. Chest x-ray that was obtained in emergency department showed right middle lobe pneumonia and was concerning also for possible mass. Patient underwent CT scan and would verify pneumonia. He also underwent CT angio, which excluded pulmonary embolism. Patient was started IV Zosyn and Levaquin. Patient had improvement and resolution of cough and pleuritic chest pain. Both pulmonary and cardiology was consulted to see patient. Patient underwent echocardiogram, which showed ejection fraction of 50 to 55% with some minimal pericardial fluid effusion. Patient was not a candidate for fluid removal secondary to renal function. Patient continued to do well and he was discharged. He was given Augmentin antibiotic to take twice a day for 7 days. Patient does have follow up with pulmonology, Dr. Yannick Lopez at [facility], on July 03, 2014, to undergo repeat CT scan of lungs to ensure resolution. Patient also has follow up with cardiology to follow pericardial effusion. Patient states today that he has no complaints. Denies any shortness of breath or pleuritic chest pain. Since discharge he has had no more fevers and is doing well. Patient does mention that he has mild nasal congestion and scratch in his throat that began today but otherwise is doing well. Regarding his left shoulder injury, he continues to do physical therapy. He has follow up [facility] on June 03, 2014. Patient also did mention that he presented to dermatology yesterday for 6 month follow up. He had biopsy done of a lesion on his back and also had several lesions that underwent cryotherapy. Review of Systems General: No fever, chills or night sweats. HEENT: Positive for nasal congestion and itchy throat. Denies vision changes, headache, rhinorrhea, sore throat or dysphasia. Respiratory: Denies cough, shortness of breath or hemoptysis. Cardiac: Denies chest pain, palpitations or irregular heartbeats. GI: Denies nausea, vomiting, abdominal pain, diarrhea or constipation. Allergies NKA Current Medications allopurinol 300 mg oral tablet (allopurinol), 300 mg, Every 24 hours Alpha Lipoic Acid (alpha-lipoic acid), 600 mg, Daily amlodipine 10 mg oral tablet (amlodipine), 10 mg, Daily aspirin 81 mg oral tablet (aspirin), 81 mg, Every 24 hours Centrum Silver Men's oral tablet (multivitamin with minerals) ferrous sulfate 325 mg (65 mg elemental iron) oral delayed release tablet ( ferrous sulfate), 325 mg, Every 24 hours Fish Oil 1200 mg oral capsule (omega-3 polyunsaturated fatty acids), 1,200 mg, 2 times a day Flomax 0.4 mg oral capsule (tamsulosin), 0.4 mg, Every 24 hours, Comment: faxed request from [facility] folic acid 1 mg oral tablet (folic acid), 1 mg, Daily gemfibrozil 600 mg oral tablet (gemfibrozil), 1,200 mg, Daily glipiZIDE 5 mg oral tablet (glipizide), 5 mg, Every 24 hours hydrochlorothiazide 25 mg oral tablet (hydrochlorothiazide), 25 mg, Every 24 hours L-Arginine 500 mg oral capsule (arginine), 500 mg, Daily lisinopril 20 mg oral tablet (lisinopril), 20 mg, Daily methotrexate 2.5 mg oral tablet (methotrexate), 10 mg, Every week Saw [place] (saw palmetto), 450 mg, Daily tizanidine 4 mg oral tablet (tizanidine), 4 mg, PRN, 2 times a day trazodone 50 mg oral tablet (trazodone), 50 mg, At bedtime Viagra 100 mg oral tablet (sildenafil), 100 mg, PRN, Daily Vitamin B Complex oral tablet (multivitamin), 1 Tab, Every 24 hours Vitamin B-12 (cyanocobalamin), taking 3000mcg daily Vitamin D3 1000 intl units oral capsule (cholecalciferol), Comment: 2 capsules every AM Problems and Past Medical History Active Cervical neck pain with evidence of disc disease Cervical spinal stenosis Chronic gout: Onset on 1963. Chronic Kidney Disease (CKD), Stage III (Moderate) Colitis, Ulcerative: Onset on 1963. Diabetes mellitus type II: Onset on 2006. Erectile dysfunction associated with type 2 diabetes mellitus Floaters HDL deficiency: Onset on 1997. Muscle spasm of cervical muscle of neck Psoriasis: Onset on 1963. Vitamin B12 deficiency Procedure History resection of small intestine for ileitis with appendectomy x 2 surgeries at 03/1964. cholecystectomy at 03/14/1984. Hx prostate biopsy Colonoscopy * at 05/25/2010. resection of small intestines at 10/12/2012. Social History Alcohol Use: Denies Caffeine Use: Current Caffeine Type: Soda Caffeine Frequency: Daily Current Tobacco Usage: Former Exposure to Tobacco Smoke: Patient smokes Recreational Drug Use: Denies Smoking Status: Former smoker Physical Examination TEMP BP Pulse RR MAP O2 Sat 36.7 150/80 57 16 103.33 99 Blood Pressure Location: Right arm Oxygen Therapy: Room air Weight Height BMI BSA 88.8 kg (195.77 lbs) 180 cm 27.4 kg/m2 2.1071 m2 Scale: Standing digital General: No acute distress. Alert and oriented x3. Mouth: No posterior pharyngeal erythema or tonsillar exudate, moist mucous membranes. Neck: No cervical lymphadenopathy, supple, nontender. Respiratory: Clear to auscultation in all lung stanley. No wheezing or rales appreciated. Cardiac: Regular rate and rhythm, no murmur. Abdomen: Soft, nontender, nondistended, positive bowel sounds. Impression 1. Hospital discharge follow-up (V67.59) 2. Right middle lobe pneumonia (486) 3. Benign essential hypertension (401.1) 4. Acute URI (465.9) Plan 1. Regarding resolution of right middle lobe pneumonia: Patient is instructed to keep follow up appointment with Dr. Yannick Lopez on July 03, 2014, for repeat CT scan of lungs and to keep cardiology appointment to follow up pericardial effusion. Patients blood pressure was elevated today. Will increase lisinopril to 40 mg, by mouth daily and to continue hydrochlorothiazide 25 mg by mouth daily and amlodipine 10 mg by mouth daily. Patient will return to clinic in 2 months for follow up blood pressure. 2. Regarding upper respiratory tract infection: Instructed patient to try over- the-counter preparations of Tylenol Cold and Sinus. Patient is to return to clinic if having worsening symptoms. TR: [id number] HILDA#: [id number] [Electronically Signed on 06.03.2014 01:00 PM] Shankar Sethi MD </br> 05/29/2014 [Electronically Signed on 06.03.2014 01:00 PM] Shankar Sethi MD [facility] Office/Clinic Notes Office/Clinic Notes [facility] at [facility] [address] [phone] PATIENT: NAJMA KELSEY MR #: [id number] : 1945 DATE SEEN: 05/01/2014 Chief Complaint Rich is here for an emergency followup. Patient states he has pneumonia and pleurisy that he was diagnosed with last Tuesday and having chest/back pain on the left side when he inhales. Additional Information: [facility]. History of Present Illness Mr. Kelsey is a 68-year-old male, who presents to the clinic for followup from the emergency department for pleurisy. The patient presented to [facility] Emergency Room on April 28, 2014, for left upper chest pain. Chest x-ray was done, which was no change from prior and with stable infiltrate, and the patient was diagnosed with pleuritic pain. He was given a dose of Zithromax for 5 days and Percocet 7.5/325 mg. The patient states that he continues to have left upper chest pain and left upper back pain only with inhalation. The patient states that Percocet has been helping with pain. The patient reports no ongoing fever since last seen in the emergency department. He denies any shortness of breath or any wheezing episodes. Pain Assessment Cognitive Status: Independent, decisions consistent/reasonable Intensity: 10 Location: Other: During inhaling pain in left side chest and back Review of Systems General: Afebrile, positive chills. Respiratory: Chest wall pain with deep inhalation. No wheezing. No shortness of breath. Cardiac: Denies chest pain other than related to deep inhalation. No palpitations. No irregular heart rate. GI: No abdominal pain. No nausea. No vomiting. No indigestion. Allergies NKA Current Medications allopurinol 300 mg oral tablet (allopurinol), 300 mg, Every 24 hours Alpha Lipoic Acid (alpha-lipoic acid), 600 mg, Daily amlodipine 10 mg oral tablet (amlodipine), 10 mg, Daily aspirin 81 mg oral tablet (aspirin), 81 mg, Every 24 hours Centrum Silver Men's oral tablet (multivitamin with minerals) ferrous sulfate 325 mg (65 mg elemental iron) oral delayed release tablet ( ferrous sulfate), 325 mg, Every 24 hours Fish Oil 1200 mg oral capsule (omega-3 polyunsaturated fatty acids), 1,200 mg, 2 times a day Flomax 0.4 mg oral capsule (tamsulosin), 0.4 mg, Every 24 hours, Comment: faxed request from [facility] folic acid 1 mg oral tablet (folic acid), 1 mg, Daily gemfibrozil 600 mg oral tablet (gemfibrozil), 1,200 mg, Daily glipiZIDE 5 mg oral tablet (glipizide), 5 mg, Every 24 hours hydrochlorothiazide 25 mg oral tablet (hydrochlorothiazide), 25 mg, Every 24 hours L-Arginine 500 mg oral capsule (arginine), 500 mg, Daily lisinopril 20 mg oral tablet (lisinopril), 20 mg, Daily methotrexate 2.5 mg oral tablet (methotrexate), 10 mg, Every week oxycodone 5 mg oral tablet (oxycodone), 5 mg, PRN, 2 times a day, 21 Day(s) Saw [place] (saw palmetto), 450 mg, Daily tizanidine 4 mg oral tablet (tizanidine), 4 mg, PRN, 2 times a day trazodone 50 mg oral tablet (trazodone), 50 mg, At bedtime Viagra 100 mg oral tablet (sildenafil), 100 mg, PRN, Daily Vitamin B Complex oral tablet (multivitamin), 1 Tab, Every 24 hours Vitamin B-12 (cyanocobalamin), taking 3000mcg daily Vitamin D3 1000 intl units oral capsule (cholecalciferol), Comment: 2 capsules every AM Problems and Past Medical History Active Cervical neck pain with evidence of disc disease Cervical spinal stenosis Chronic gout: Onset on 1963. Chronic Kidney Disease (CKD), Stage III (Moderate) Colitis, Ulcerative: Onset on 1963. Diabetes mellitus type II: Onset on 2006. Erectile dysfunction associated with type 2 diabetes mellitus Floaters HDL deficiency: Onset on 1997. Muscle spasm of cervical muscle of neck Psoriasis: Onset on 1963. Vitamin B12 deficiency Procedure History resection of small instestine for ileitis with appendectomy x 2 surgeries at 03/1964. cholestectomy at 03/14/1984. Hx prostate biopsy Colonoscopy * at 05/25/2010. resection of small intestines at 10/12/2012. Social History Alcohol Use: Denies Caffeine Use: Current Caffeine Type: Soda Caffeine Frequency: Daily Current Tobacco Usage: Former Exposure to Tobacco Smoke: Patient smokes Recreational Drug Use: Denies Smoking Status: Former smoker Physical Examination TEMP BP Pulse RR MAP O2 Sat 36.4 142/72 77 22 95.33 97 Blood Pressure Location: Right arm Oxygen Therapy: Room air Weight Height BMI BSA 93.1 kg (205.25 lbs) 180 cm 28.7 kg/m2 2.1575 m2 Scale: Standing digital General: The patient is afebrile, in no acute distress, alert and oriented. Respiratory: Clear to auscultation bilaterally. No rales or wheezing appreciated. Cardiac: Regular rate and rhythm. No murmur. Abdomen: Soft, nontender, nondistended. Positive bowel sounds. Musculoskeletal: Reproducible pain with palpation of left upper chest wall. Impression 1. Examination, follow up (V67.9) 2. Pleurisy (511.0) Plan Medication changes this visit: New Levaquin 500 mg oral tablet, 500 mg, Q24H, 7 Day(s), Quantity: 7, Refills: 0 Percocet 7.5/325 oral tablet, 1 Tab, PRN, Q6H, 14 Day(s), Quantity: 56, Refills : 0 Will switch antibiotic. Discontinue Zithromax and start Levaquin 500 mg orally daily. Will provide more Percocet 7.5/325 mg orally every 6 hours as needed for pain. Will have patient follow up in 2 weeks to see if any improvement. At this time repeat chest x-ray is not warranted. If the patient continues to have pleuritic chest pain at the next return visit, will obtain 2-view chest x- ray vs CT scan. TR: [id number] HILDA#: [id number] [Electronically Signed on 05.16.2014 03:53 PM] Shankar Sethi MD </br> 05/01/2014 [Electronically Signed on 05.16.2014 03:53 PM] Shankar Sethi MD [facility] DX Chest 2 View DX Chest 2 View NAJMA LAURAVACK CHEST TWO VIEWS INDICATION: Anterior left-sided chest pain. Trauma. Left proximal humerus fracture. COMPARISON: 05/19/2010. FINDINGS: There is mild cardiomegaly. There are calcified hilar nodes. No acute consolidation, congestion, or pleural effusions. There is no gross pneumothorax. Unchanged focal scarring within the right lower thorax. There is a comminuted fracture involving the head and neck of the left humerus. No acute displaced rib fracture. Limited evaluation of the thoracic spine which is partially obscured superiorly. IMPRESSION: 1. Mild peribronchial thickening. There is no dense consolidation. 2. No gross pneumothorax. Fracture involving the proximal left humerus. Final Report Dictated By: Hector Figueroa MD Dictated Dt/tm: 04/10/2014 15:44 Signed By: Hector Figueroa MD Signed Dt/tm: 04/11/2014 16:57 Transcribed By: DCRichie Transcribed Dt/tm: 04/10/2014 16:10</br> Clinical History Current History Pt states anterior lt sided chest pain since 03-30-14 when two horses knocked him down, pain is worse on deep inspiration, pt has a lt proximal humerus fx, very difficult for pt to raise lt arm Previous History/Surgery cervical spine stenosis, chronic gout, chronic kidney disease, ulcerative colitis, diabetes, nikia, colonoscopy, prostate biopsy, resection of small intestine for ileitis with appy, quit smoking in 2012, pneumonia 04/10/2014 Final Report Dictated By: Hector Figueroa MD Dictated Dt/tm: 04/10/2014 15:44 Signed By: Hector Figueroa MD Signed Dt/tm: 04/11/2014 16:57 Transcribed By: MARINA Transcribed Dt/tm: 04/10/2014 16:10 [facility] Office/Clinic Notes Office/Clinic Notes [facility] at [address] [phone] PATIENT: NAJMA KELSEY MR #: [id number] : 1945 DATE SEEN: 04/10/2014 Chief Complaint Luisito is being seen today for follow up on left broken shoulder. Luisito would like to be rechecked for any broken bones in chest area. Additional Information: [facility]acy [facility] [address] _ History of Present Illness Mr. eKlsey presents to clinic secondary to left broken arm. While out-of-town patient suffered fall after being knocked over by a horse and landed on left side. he presented to the local ER and x-ray was obtained which demonstrated left humerus fracture. Patient was given pain medication and told to present to the orthopedic doctor. No follow-up was scheduled for patient. On his follow-up visit with Dr. Henry on 04/03/14, he was referred to Dr. Rodarte for further evaluation. patient was then referred to [facility] due to specialty need. He was evaluated by Dr. Augustine who obtained CT scan of left arm to determine if surgery would be necessary. CT scan demonstrated acute comminuted fracture of left humerus and no surgery required. Patient was instructed to keep arm in sling and to periodically extend arm and practice curling motion over the next 3-4 weeks. Patient will have follow-up with in next 3 weeks with repeat XR of humerus. Patient states currently pain is controlled with oxycodone 5 mg, which he is currently out of. pain has significantly improved since last week. Patient states that he was unable to function at home alone last week but now it has become much better currently able to shave himself. Patient also states that most attention has been focused on his arm but he is also experience left-sided chest pain since injury. Patient states having pain with deep inspiration and with palpation. regarding patient's insomnia. In approximately 2 weeks ago and started on trazodone. Patient reports that sleep has improved significantly on trazodone. Patient tolerated medication well. Only with recent injury sleep is disturbed secondary to pain. _ Pain Assessment Cognitive Status: Independent, decisions consistent/reasonable Intensity: 10 Location: Shoulder Laterality: Left Scale Type: 0-10 Pain scale Time Pattern: Constant Onset: Sudden Quality: Sharp Review of Systems General: no fever, chills or night sweats. HEENT: No blurred vision, headache, no dysphagia, no sore throat Respiratory: No history of chronic lung disease, no cough, no hemoptysis, no shortness of breath Heart: No chest pain, no palpitations, no irregular heart beats GI: No nausea, vomiting, abdominal pain, diarrhea, constipation. Musculoskeletal: left arm pain with movement. No myalgia, or weakness. Neurological: no numbness and tingling _ Allergies NKA Current Medications allopurinol 300 mg oral tablet (allopurinol), 300 mg, Every 24 hours Alpha Lipoic Acid (alpha-lipoic acid), 600 mg, Daily amlodipine 10 mg oral tablet (amlodipine), 10 mg, Daily aspirin 81 mg oral tablet (aspirin), 81 mg, Every 24 hours Centrum Silver Men's oral tablet (multivitamin with minerals) ferrous sulfate 325 mg (65 mg elemental iron) oral delayed release tablet ( ferrous sulfate), 325 mg, Every 24 hours Fish Oil 1200 mg oral capsule (omega-3 polyunsaturated fatty acids), 1,200 mg, 2 times a day Flomax 0.4 mg oral capsule (tamsulosin), 0.4 mg, Every 24 hours, Comment: faxed request from [facility] folic acid 1 mg oral tablet (folic acid), 1 mg, Daily gemfibrozil 600 mg oral tablet (gemfibrozil), 1,200 mg, Daily glipiZIDE 5 mg oral tablet (glipizide), 5 mg, Every 24 hours hydrochlorothiazide 25 mg oral tablet (hydrochlorothiazide), 25 mg, Every 24 hours L-Arginine 500 mg oral capsule (arginine), 500 mg, Daily lisinopril 20 mg oral tablet (lisinopril), 20 mg, Daily methotrexate 2.5 mg oral tablet (methotrexate), 10 mg, Every week Percocet 5/325 (acetaminophen-oxycodone), 1 Tab, Every 6 hours Saw [place] (saw palmetto), 450 mg, Daily tizanidine 4 mg oral tablet (tizanidine), 4 mg, PRN, 2 times a day trazodone 50 mg oral tablet (trazodone), 50 mg, At bedtime Viagra 100 mg oral tablet (sildenafil), 100 mg, PRN, Daily Vitamin B Complex oral tablet (multivitamin), 1 Tab, Every 24 hours Vitamin B-12 (cyanocobalamin), taking 3000mcg daily Vitamin D3 1000 intl units oral capsule (cholecalciferol), Comment: 2 capsules every AM Problems and Past Medical History Active Cervical neck pain with evidence of disc disease Cervical spinal stenosis Chronic gout: Onset on 1963. Chronic Kidney Disease (CKD), Stage III (Moderate) Colitis, Ulcerative: Onset on 1963. Diabetes mellitus type II: Onset on 2006. Erectile dysfunction associated with type 2 diabetes mellitus Floaters HDL deficiency: Onset on 1997. Muscle spasm of cervical muscle of neck Psoriasis: Onset on 1963. Vitamin B12 deficiency Physical Examination TEMP BP Pulse RR MAP O2 Sat 36.8 158/78 62 20 104.67 98 Blood Pressure Location: Right arm Oxygen Therapy: Room air Weight Height BMI BSA 91.1 kg (200.84 lbs) 180 cm 28.1 kg/m2 2.1342 m2 Scale: Standing digital General: no acute distress, alert and oriented Respiratory: Clear to auscultation bilaterally, no wheezing Cardiac: Regular rate and rhythm, no murmur Abdomen: Soft, nontender, nondistended, positive bowel sounds Musculoskeletal: Point tenderness with palpation over the fourth and fifth rib, normal range of motion left arm, tenderness with palpation over proximal humerus , no edema, no erythema. _ Impression/Plan 1. Closed comminuted fracture of left humerus (812.20): Provided script for oxycondone 5 mg po BID prn pain. Keep follow-up appointment with Dr. Gil[facility]. _ 2. Atypical chest pain (786.59): CXR to evaluate for rib fracture. _ 3. Insomnia (780.52): Resolved on trazodone 50 mg po qhs. _ _ Medication changes this visit: New oxycodone 5 mg oral tablet, 5 mg, PRN, BID, 21 Day(s), Quantity: 42, Refills: 0 Stopped Percocet 5/325, 1 Tab, Q6H, Refills: 0 _ Shankar Sethi MD [Electronically Signed on 04.10.2014 03:13 PM] Shankar Sethi MD </br> 04/10/2014 [Electronically Signed on 04.10.2014 03:13 PM] Shankar Sethi MD [facility] DX Shoulder Lt 2 View DX Shoulder Lt 2 View NAJMA KELSEY LEFT SHOULDER 4 VIEWS INDICATION: Status post trauma as he was trampled by two horses four days ago. Left shoulder and upper extremity pain. FINDINGS: There is evidence of a fracture of the left humeral head and neck region with mild impaction. There is no evidence of subluxation. The left clavicle and left scapula appear intact. IMPRESSION: Left humeral neck fracture. It is nondisplaced. It appears slightly impacted. Final Report Dictated By: Dany Suarez MD Dictated Dt/tm: 04/03/2014 16:16 Signed By: Dany Suarez MD Signed Dt/tm: 04/04/2014 15:45 Transcribed By: [facility] Transcribed Dt/tm: 04/03/2014 16:49</br> Clinical History Current History Patient stated left shoulder and upper extremity pain, he was trampled by 2 horses x4 days ago , Imaging protocol per Dr. Rodarte Previous History/Surgery Patinet stated no previous hx 04/03/2014 Final Report Dictated By: Dany Suarez MD Dictated Dt/tm: 04/03/2014 16:16 Signed By: Dany Suarez MD Signed Dt/tm: 04/04/2014 15:45 Transcribed By: BULKHEAD CARPENTER Transcribed Dt/tm: 04/03/2014 16:49 [facility] Office/Clinic Notes Office/Clinic Notes [facility] at [facility] [address] [place] [phone] PATIENT: NAJMA KELSEY MR #: [id number] PCP: Shankar Sethi MD : 1945 DATE SEEN: 04/03/2014 Chief Complaint Patient comes to the office with a possible proximal humerus fracture. History of Present Illness Mr. Kelsey is a 68-year-old gentleman who comes today for evaluation of a left shoulder injury. He was near [place], he had an injury in which he had an altercation with a couple of horses. He had pain and he was seen in an emergency room in [place] that showed a fracture. He was appropriately placed in a sling and referred for evaluation. He notes pain. No significant numbness or tingling to report. Otherwise, without complaints. Pain Assessment Cognitive Status: Independent, decisions consistent/reasonable Intensity: 10 Location: Shoulder Laterality: Left Review of Systems PLASTER CASTER: NA Musculoskeletal: Muscle or joint pain Pertinent negative for the following system(s): Constitutional, HEENT, Respiratory, Cardiovascular, GI, , Integumentary, Neurological, Hematologic, Endocrine, Psychiatric Allergies NKA Current Medications allopurinol 300 mg oral tablet (allopurinol), 300 mg, Every 24 hours Alpha Lipoic Acid (alpha-lipoic acid), 600 mg, Daily amlodipine 10 mg oral tablet (amlodipine), 10 mg, Daily aspirin 81 mg oral tablet (aspirin), 81 mg, Every 24 hours Centrum Silver Men's oral tablet (multivitamin with minerals) ferrous sulfate 325 mg (65 mg elemental iron) oral delayed release tablet ( ferrous sulfate), 325 mg, Every 24 hours Fish Oil 1200 mg oral capsule (omega-3 polyunsaturated fatty acids), 1,200 mg, 2 times a day Flomax 0.4 mg oral capsule (tamsulosin), 0.4 mg, Every 24 hours, Comment: faxed request from [facility] folic acid 1 mg oral tablet (folic acid), 1 mg, Daily gemfibrozil 600 mg oral tablet (gemfibrozil), 1,200 mg, Daily glipiZIDE 5 mg oral tablet (glipizide), 5 mg, Every 24 hours hydrochlorothiazide 25 mg oral tablet (hydrochlorothiazide), 25 mg, Every 24 hours L-Arginine 500 mg oral capsule (arginine), 500 mg, Daily lisinopril 20 mg oral tablet (lisinopril), 20 mg, Daily methotrexate 2.5 mg oral tablet (methotrexate), 10 mg, Every week Percocet 5/325 (acetaminophen-oxycodone), 1 Tab, Every 6 hours Saw [place] (saw palmetto), 450 mg, Daily tizanidine 4 mg oral tablet (tizanidine), 4 mg, PRN, 2 times a day trazodone 50 mg oral tablet (trazodone), 50 mg, At bedtime Viagra 100 mg oral tablet (sildenafil), 100 mg, PRN, Daily Vitamin B Complex oral tablet (multivitamin), 1 Tab, Every 24 hours Vitamin B-12 (cyanocobalamin), taking 3000mcg daily Vitamin D3 1000 intl units oral capsule (cholecalciferol), Comment: 2 capsules every AM Problems and Past Medical History Active Cervical neck pain with evidence of disc disease Cervical spinal stenosis Chronic gout: Onset on 1963. Chronic Kidney Disease (CKD), Stage III (Moderate) Colitis, Ulcerative: Onset on 1963. Diabetes mellitus type II: Onset on 2006. Erectile dysfunction associated with type 2 diabetes mellitus Floaters HDL deficiency: Onset on 1997. Muscle spasm of cervical muscle of neck Psoriasis: Onset on 1963. Vitamin B12 deficiency Procedure History resection of small instestine for ileitis with appendectomy x 2 surgeries at 03/1964. cholestectomy at 03/14/1984. Hx prostate biopsy Colonoscopy * at 05/25/2010. resection of small intestines at 10/12/2012. Social History Alcohol Use: Denies Caffeine Use: Current Caffeine Type: Soda Caffeine Frequency: Daily Current Tobacco Usage: Former Exposure to Tobacco Smoke: Patient smokes Recreational Drug Use: Denies Smoking Status: Former smoker Physical Examination TEMP BP Pulse RR MAP O2 Sat 37.2 132/84 88 18 100 96 Blood Pressure Location: Right arm Oxygen Therapy: Room air Weight Height BMI BSA 91.5 kg (201.72 lbs) 180 cm 28.2 kg/m2 2.1389 m2 Exam reveals bruising and positive discomfort to palpation, all consistent with his injury. No distal neurologic deficit noted, left side. Plain films reviewed. These do show a proximal humerus fracture, left shoulder. Impression 1. Left shoulder pain (719.41) 2. Left proximal humerus fracture. Plan I do think it would be worthwhile for him to meet a colleague of mine, Dr. John Gilmore, given the nature of the fracture itself. I did call him today, he was in clinic, and he was able to fit him right in. Therefore, he was sent over to see. Dr. Gilmore today. He will see me back on an as-needed basis. He did leave after I answered his questions today. cc: Shankar Sethi MD TR: [id number] HILDA#: [id number] [Electronically Signed on 04.08.2014 07:26 AM] Darwin Rodarte MD </br> 04/03/2014 [Electronically Signed on 04.08.2014 07:26 AM] Darwin Rodarte MD [facility] Office/Clinic Notes Office/Clinic Notes [facility] [address] [place] [address] [address] [place] [address] [facility] PATIENT: NAJMA KELSEY MR #: [id number] : 1945 DATE SEEN: 04/03/2014 Chief Complaint Patient is here for follow up, Psoriasis. History of Present Illness This patient is a 68-year-old male who I am seeing for psoriasis and osteoarthritis. Does not have psoriatic arthritis. Is on methotrexate 4 pills by mouth each week plus folic acid. Does have chronic renal insufficiency. Last creatinine 1.55. Typically baseline is around 1.8. Previously followed by with Dr. Borges for his psoriasis, then transferred to Dr. Fabricio Sheffield. Now he sees me more for osteoarthritis and psoriasis. I have been monitoring blood for him. In the meantime will try to find a new log tumbler. Between this visit and last on Tuesday he basically got trampled by a horse and ended up seeing an orthopedic at [facility] 2 [place]2 hours south of here. Was diagnosed with a proximal humerus fracture which is remarkably painful. Was told to followup with orthopedics. Called his primary and could not get an appointment until today. Has an appointment at 2. He is in quite a bit of pain. Regarding psoriasis he is doing well. Recently had a skin cancer removed by Dr. Sheffield. Pain Assessment Cognitive Status: Independent, decisions consistent/reasonable Intensity: 10 Location: Shoulder Review of Systems Constitutional Symptoms Recent Weight Change: No Fatigue/Weakness: Yes Ears/Nose/Throat Hearing Loss or Ringing: Yes Chronic Sinus Problems: No Oral Ulcers: No Swollen Glands: No Dry Mouth: No Eyes Dry Eyes: No Red Eyes: No Cardiovascular Heart Trouble: No Palpitation: No Respiratory Chronic or Frequent Coughs: No Shortness Of Breath: No Asthma: No Chest Pain With Deep Breath: No Gastrointestinal Heartburn: No Ulcers: No Genitourinary Frequent Urination: No Blood In Urine: No Musculoskeletal Morning Stiffness Greater Than One Hour: No Swollen Joints: Yes Painful Joints: Yes Warm Joints: No Muscle Weakness: Yes Muscle Pain: Yes Skin Facial Rashes: Yes Hair Loss: No Unusual Rashes Related To Sunlight: No Color Changes Of Hands: No Neurological Seizures: No Frequent Recurring Headaches: No Stroke: No Psychiatric Nervousness: No Depression: No Endocrine Diabetes: Yes Heat or Cold Intolerance: No Hematological/Lymphatic History Of Anemia: No History Of Low White Count: No History Of Low Platelet Count: No History Of Blood Clots: No Miscarriages: No Immunological/Allergic History Of Abnormal Arthritis Blood Tests: No History Of A Positive ROSSI Blood Test: No Allergies NKA Current Medications allopurinol 300 mg oral tablet (allopurinol), 300 mg, Every 24 hours Alpha Lipoic Acid (alpha-lipoic acid), 600 mg, Daily amlodipine 10 mg oral tablet (amlodipine), 10 mg, Daily aspirin 81 mg oral tablet (aspirin), 81 mg, Every 24 hours Centrum Silver Men's oral tablet (multivitamin with minerals) ferrous sulfate 325 mg (65 mg elemental iron) oral delayed release tablet ( ferrous sulfate), 325 mg, Every 24 hours Fish Oil 1200 mg oral capsule (omega-3 polyunsaturated fatty acids), 1,200 mg, 2 times a day Flomax 0.4 mg oral capsule (tamsulosin), 0.4 mg, Every 24 hours, Comment: faxed request from [facility] folic acid 1 mg oral tablet (folic acid), 1 mg, Daily gemfibrozil 600 mg oral tablet (gemfibrozil), 1,200 mg, Daily glipiZIDE 5 mg oral tablet (glipizide), 5 mg, Every 24 hours hydrochlorothiazide 25 mg oral tablet (hydrochlorothiazide), 25 mg, Every 24 hours L-Arginine 500 mg oral capsule (arginine), 500 mg, Daily lisinopril 20 mg oral tablet (lisinopril), 20 mg, Daily methotrexate 2.5 mg oral tablet (methotrexate), 10 mg, Every week Saw [place] (saw palmetto), 450 mg, Daily tizanidine 4 mg oral tablet (tizanidine), 4 mg, PRN, 2 times a day trazodone 50 mg oral tablet (trazodone), 50 mg, At bedtime Viagra 100 mg oral tablet (sildenafil), 100 mg, PRN, Daily Vitamin B Complex oral tablet (multivitamin), 1 Tab, Every 24 hours Vitamin B-12 (cyanocobalamin), taking 3000mcg daily Vitamin D3 1000 intl units oral capsule (cholecalciferol), Comment: 2 capsules every AM Problems and Past Medical History Active Cervical neck pain with evidence of disc disease Cervical spinal stenosis Chronic gout: Onset on 1963. Chronic Kidney Disease (CKD), Stage III (Moderate) Colitis, Ulcerative: Onset on 1963. Diabetes mellitus type II: Onset on 2006. Erectile dysfunction associated with type 2 diabetes mellitus Floaters HDL deficiency: Onset on 1997. Muscle spasm of cervical muscle of neck Psoriasis: Onset on 1963. Vitamin B12 deficiency Procedure History resection of small intestine for ileitis with appendectomy x 2 surgeries at 03/1964. cholestectomy at 03/14/1984. Hx prostate biopsy Colonoscopy * at 05/25/2010. resection of small intestines at 10/12/2012. Social History Alcohol Use: Denies Caffeine Use: Current Caffeine Type: Soda Caffeine Frequency: Daily Current Tobacco Usage: Former Exposure to Tobacco Smoke: Patient smokes Recreational Drug Use: Denies Smoking Status: Former smoker Physical Examination TEMP BP Pulse RR MAP O2 Sat 36.7 144/86 88 20 105.33 Weight Height BMI BSA 92.7 kg (204.37 lbs) 180 cm 28.6 kg/m2 2.1529 m2 General: Alert and oriented x 3. No acute distress. Psychiatric: Oriented to time and place. Appropriate mood and affect. Skin: No rash. Eyes: Clear. Mouth: No oral ulcers. Lymphatics: No abnormal lymph nodes. Cardiovascular: S1 and S2, regular rate and rhythm with no murmurs. Respiratory: Bilaterally clear to auscultation with no added sounds. Gastrointestinal: Abdomen is soft. No focal tenderness. Liver and spleen nonpalpable. Musculoskeletal: No swollen or tender joints; no synovitis of any joints noted. Range of motion of joints within normal limits. Global Recruiter strength equal bilaterally. Left upper shoulder with ecchymosis. Good distal pulses and good capillary refill. Neurologic: Normal muscle strength 5/5 upper and lower limbs bilaterally. Extremities: No clubbing, cyanosis or edema. Impression 1. Psoriasis (696.1) 2. Displaced fracture of greater tuberosity of humerus (812.03) 3. Generalized osteoarthritis (715.00) A 68-year-old male who I see for more osteoarthritic complaints than psoriatic arthritis complaints in addition to psoriasis. Has since established care with Dr. Fabricio Sheffield for psoriasis. He could continue to see him or me. It is up to him. Plan 1. Psoriasis. Continue methotrexate 4 pills by mouth each week. He is happy with his skin disease. Continue folic acid. Reviewed blood work done at the end of February. Renal insufficiency is at baseline at 1.55. 2. Osteoarthritis. We have been using arthritis gloves, Biofreeze, symptomatic control. 3. Proximal humerus fracture. This was done on Tuesday. I am going to try to get ahold of Dr. Shankar Sethi at [place] and then hopefully coordinate some care regarding his orthopedic process. Patient's last LFTs were normal. Previously did have elevated. Return to clinic in 3 months. If he would like Dr. Sheffield to take over his methotrexate management, that is okay with me. TR: CARMEN HILDA#: [id number] [Electronically Signed on 04.10.2014 02:51 PM] Danelle Henry, DO FACR </br> 04/03/2014 [Electronically Signed on 04.10.2014 02:51 PM] Danelle Henry DO FACR [facility] Office/Clinic Notes Office/Clinic Notes [facility] [address] [address] [phone] PATIENT: NAJMA KELSEY MR #: [id number] : 1945 DATE SEEN: 03/26/2014 Chief Complaint Patient states he is here for a 3-month followup, ringing in left ear and not sleeping well. History of Present Illness Najma is a 68-year-old male, who presented to the clinic secondary to having ringing in the left ear and difficulty with sleeping. 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 The patient states, however, over the last 6 months, he has had decreased hearing and increased tinnitus in his left ear. He denies any recent trauma. He denies any recent ear infections. Patient has a chronic sleeping disorder, where he finds it difficult to fall asleep. He has tried Ambien and Restoril without much improvement. Patient states that he noticed that he had improvement in his sleeping when Dr. Danelle Henry prescribed tramadol for his cervical spinal stenosis. Review of Systems General: No weight change, fever, chills or night sweats. Positive for difficulty sleeping. HEENT: No blurred vision, headache, ear pain, rhinorrhea, dysphagia, sore throat. Decreased hearing. Positive for tinnitus. Respiratory: No cough, no hemoptysis or shortness of breath. Heart: No chest pain, palpitations or irregular heartbeats. Musculoskeletal: No arthralgia, myalgia or weakness. Allergies NKA Current Medications allopurinol 300 mg oral tablet (allopurinol), 300 mg, Every 24 hours, 90 Day(s) Alpha Lipoic Acid (alpha-lipoic acid), 600 mg, Daily amlodipine 10 mg oral tablet (amlodipine), 10 mg, Daily aspirin 81 mg oral tablet (aspirin), 81 mg, Every 24 hours Centrum Silver Men's oral tablet (multivitamin with minerals) ferrous sulfate 325 mg (65 mg elemental iron) oral delayed release tablet ( ferrous sulfate), 325 mg, Every 24 hours Fish Oil 1200 mg oral capsule (omega-3 polyunsaturated fatty acids), 1,200 mg, 2 times a day Flomax 0.4 mg oral capsule (tamsulosin), 0.4 mg, Every 24 hours, 90 Day(s), Comment: faxed request from [facility] folic acid 1 mg oral tablet (folic acid), 1 mg, Daily, 90 Day(s) gemfibrozil 600 mg oral tablet (gemfibrozil), 1,200 mg, Daily glipiZIDE 5 mg oral tablet (glipizide), 5 mg, Every 24 hours hydrochlorothiazide 25 mg oral tablet (hydrochlorothiazide), 25 mg, Every 24 hours, 90 Day(s) L-Arginine 500 mg oral capsule (arginine), 500 mg, Daily lisinopril 20 mg oral tablet (lisinopril), 20 mg, Daily methotrexate 2.5 mg oral tablet (methotrexate), 10 mg, Every week, 90 Day(s) Saw [place] (saw palmetto), 450 mg, Daily tizanidine 4 mg oral tablet (tizanidine), 4 mg, PRN, 2 times a day tramadol 50 mg oral tablet (tramadol), 50 mg, PRN, Every 6 hours Viagra 100 mg oral tablet (sildenafil), 100 mg, PRN, Daily Vitamin B Complex oral tablet (multivitamin), 1 Tab, Every 24 hours Vitamin B-12 (cyanocobalamin), taking 3000mcg daily Vitamin D3 1000 intl units oral capsule (cholecalciferol), Comment: 2 capsules every AM Problems and Past Medical History Active Cervical neck pain with evidence of disc disease Cervical spinal stenosis Chronic gout: Onset on 1963. Chronic Kidney Disease (CKD), Stage III (Moderate) Colitis, Ulcerative: Onset on 1963. Diabetes mellitus type II: Onset on 2006. Erectile dysfunction associated with type 2 diabetes mellitus Floaters HDL deficiency: Onset on 1997. Muscle spasm of cervical muscle of neck Psoriasis: Onset on 1963. Vitamin B12 deficiency Procedure History resection of small intestine for ileitis with appendectomy x 2 surgeries at 03/1964. cholestectomy at 03/14/1984. Hx prostate biopsy Colonoscopy * at 05/25/2010. resection of small intestines at 10/12/2012. Social History Alcohol Use: Denies Caffeine Use: Current Caffeine Type: Soda Caffeine Frequency: Daily Current Tobacco Usage: Former Exposure to Tobacco Smoke: Patient smokes Recreational Drug Use: Denies Smoking Status: Former smoker Physical Examination TEMP BP Pulse RR MAP O2 Sat 35.5 138/72 46 14 94 99 Blood Pressure Location: Left arm Oxygen Therapy: Room air Weight Height BMI BSA 94.6 kg (208.56 lbs) 180 cm 29.2 kg/m2 2.1749 m2 General: Patient is alert and oriented x3, in no acute distress. Ears: Patient has impacted cerumen in the left ear. Right tympanic membrane clear. No erythema. Normal Villeda and Rinne tests. Mouth: Moist mucous membranes. No posterior pharyngeal erythema. Neck: Supple. Soft. No carotid bruit. Respiratory: Clear to auscultation bilaterally in all lung stanley. No wheezing. Cardiac: Regular rate and rhythm. No murmur. Abdomen: Soft, nontender, nondistended. Positive bowel sounds. Diabetic Foot Exam: No foot lesions or ulcerations, 2+ dorsalis pedis pulses. Normal monofilament exam on bilateral feet. Impression and Plan 1. Decreased hearing of left ear (389.9): Left ear irrigation done in clinic. If he continues to have decreased hearing, will refer to ENT for hearing evaluation. 2. Ringing in left ear (388.30): Same as above. ENT referral for evaluation. 3. Chronic insomnia (780.52): Will try patient on trazodone 50 mg orally at bedtime. Medication changes this visit: New trazodone 50 mg oral tablet, 50 mg, AT BEDTIME, 30 Day(s), Quantity: 30, Refills : 0 Orders this visit: Referral - Request, ENT, left ear decreased hearing Will have patient follow up in 4 weeks. TR: [id number] HILDA#: [id number] [Electronically Signed on 11.25.2014 05:47 PM] Shankar Sethi MD </br> 03/26/2014 [Electronically Signed on 11.25.2014 05:47 PM] Shankar Sethi MD [facility] CHEM12 eGFR () 55 mL/min >=60 02/13/2014 LOW Estimated GFR for an calculated using MDRD study equation. Verified by Discern Expert. [facility] CHEM12 Alk Phos 99 U/L 45 - 117 02/13/2014 N [facility] -RBC Morphology RBC Morph Normal Normal 02/13/2014 N Discern Expert [facility] -Auto Diff Abs Neutro 6.7 x10 ^3/uL 2.0 - 8.1 02/13/2014 N [facility] CBC with Diff RBC 4.34 x10^6/ uL 4.60 - 6.20 02/13/2014 LOW [facility] Office/Clinic Notes Office/Clinic Notes Corrected Copy -- Original submitted incomplete. [facility] at [address] [id number] [phone] PATIENT: NAJMA KELSEY MR #: [id number] : 1945 DATE SEEN: 12/20/2013 Chief Complaint Najma is here today for a follow up on blood work. Additional Information: [facility] in [place] History of Present Illness Najma is a 68-year-old male who presents to clinic for a followup on anemia and diabetes mellitus type 2. Approximately 3 months ago the patient had [___] that showed decrease in hemoglobin level of 11.8. The patient is here for followup of anemia. He reports no rectal bleeding or no hematuria. His last colonoscopy was in September 2012, which was reported normal. He has no change in stool caliber. Most recent labs done on December 18, 2013. CBC showed hemoglobin of 11.2, so essentially stable. [___] was within normal limits. The patient denies any dizziness or vision disturbance. [___] to patient's diabetes mellitus type 2, currently on glipizide 5 mg orally daily. The patient's last hemoglobin A1c was 7.0. Most recent hemoglobin A1c on December 18, 2013, was 6.1. The patient does not check his blood sugar on a regular basis. Review of Systems Denies any weight change, fever, chills, headache, vision changes, shortness of breath, wheezing, chest pain or palpitations. No nausea, vomiting, hematochezia , diarrhea or hematuria. Allergies NKA Current Medications allopurinol 300 mg oral tablet (allopurinol), 300 mg, Every 24 hours, 90 Day(s) Alpha Lipoic Acid (alpha-lipoic acid), 600 mg, Daily amlodipine 10 mg oral tablet (amlodipine), 10 mg, Daily aspirin 81 mg oral tablet (aspirin), 81 mg, Every 24 hours Centrum Silver Men's oral tablet (multivitamin with minerals) ferrous sulfate 325 mg (65 mg elemental iron) oral delayed release tablet ( ferrous sulfate), 325 mg, Every 24 hours Fish Oil 1200 mg oral capsule (omega-3 polyunsaturated fatty acids), 1,200 mg, 2 times a day Flomax 0.4 mg oral capsule (tamsulosin), 0.4 mg, Every 24 hours, 90 Day(s) folic acid 1 mg oral tablet (folic acid), 1 mg, Daily, 90 Day(s) gemfibrozil 600 mg oral tablet (gemfibrozil), 1,200 mg, Daily glipiZIDE 5 mg oral tablet (glipizide), 5 mg, Every 24 hours hydrochlorothiazide 25 mg oral tablet (hydrochlorothiazide), 25 mg, Every 24 hours, 90 Day(s) L-Arginine 500 mg oral capsule (arginine), 500 mg, Daily lisinopril 20 mg oral tablet (lisinopril), 20 mg, Daily methotrexate 2.5 mg oral tablet (methotrexate), 10 mg, Every week, 90 Day(s) Saw [place] (saw palmetto), 450 mg, Daily tizanidine 4 mg oral tablet (tizanidine), 4 mg, PRN, 2 times a day tramadol 50 mg oral tablet (tramadol), 50 mg, PRN, Every 4 hours Viagra 100 mg oral tablet (sildenafil), 100 mg, PRN, Daily Vitamin B Complex oral tablet (multivitamin), 1 Tab, Every 24 hours Vitamin B-12 (cyanocobalamin), taking 3000mcg daily Vitamin D3 1000 intl units oral capsule (cholecalciferol), Comment: 2 capsules every AM Problems and Past Medical History Active Cervical neck pain with evidence of disc disease Cervical spinal stenosis Chronic gout: Onset on 1963. Chronic Kidney Disease (CKD), Stage III (Moderate) Colitis, Ulcerative: Onset on 1963. Diabetes mellitus type II: Onset on 2006. Erectile dysfunction associated with type 2 diabetes mellitus Floaters HDL deficiency: Onset on 1997. Muscle spasm of cervical muscle of neck Psoriasis: Onset on 1963. Vitamin B12 deficiency Procedure History resection of small instestine for ileitis with appendectomy x 2 surgeries at 03/1964. cholestectomy at 03/14/1984. Hx prostate biopsy Colonoscopy * at 05/25/2010. resection of small intestines at 10/12/2012. Social History Alcohol Use: Denies Caffeine Use: Current Caffeine Type: Soda Caffeine Frequency: Daily Current Tobacco Usage: Former Exposure to Tobacco Smoke: Patient smokes Recreational Drug Use: Denies Smoking Status: Former smoker Physical Examination TEMP BP Pulse RR MAP O2 Sat 36.5 122 16 99 Apical Heart Rate: 82 bpm Blood Pressure Location: Left arm Oxygen Therapy: Room air Weight Height BMI BSA 92 kg (202.83 lbs) 180 cm 28.4 kg/m2 2.1448 m2 Scale: Standing digital General: The patient is alert and oriented x3. Afebrile. Mouth: Moist mucous membranes. No oral lesions. Respiratory: Clear to auscultation bilaterally in all lung stanley. Cardiac: Regular rate and rhythm. No murmur. The patient with 2+ radial pulses and good capillary refill. Impression and Plan 1. Anemia (285.9). Currently stable. Probably most likely secondary to medication, specifically methotrexate. We will continue to monitor. 2. Diabetes mellitus type II (250.00). Currently controlled. Hemoglobin A1c was 6.1. Continue glipizide 5 mg orally daily. Instructed the patient to check feet on a regular basis. Recommend obtaining diabetic eye exam at earliest convenience. TR: ALEXANDRA HILDA#: [id number] [Electronically Signed on 12.09.2014 12:14 PM] Shankar Sethi MD </br> 12/20/2013 [Electronically Signed on 12.09.2014 12:14 PM] Shankar Sethi MD [facility] A1C eAverage Glu 128 12/19/2013 NA Estimated average glucose has a linear relationship with Hgb A1c and is intended to simplify the discussion of glycemic control with patients. [facility] PSA, Total Only PSA, Total 2.76 ng/mL 0.00 - 4.00 2013 N [facility] CBC (NO DIFFERENTIAL) WBC 9.5 x10^3/uL 4.0 - 10.8 12/19 N [facility] Office/Clinic Notes Office/Clinic Notes [facility] [address] [place] [id number] [phone] PATIENT: NAJMA KELSEY MR #: [id number] : 1945 DATE SEEN: 12/04/2013 Chief Complaint Najma states he has been sick for over a week and has pnemonia before and wants to make sure that is not what is going on with him now. Additional Information: [facility] in [place] _ History of Present Illness Najma presents to clinic and due to cough and congestion for the past 1 week. Patient reports having nonproductive cough for his coughing up dark brownish phlegm. Patient is also been suffering from nasal congestion. Symptoms have been progressively worsening. Patient has history of pneumonia. Patient reports having recent skin biopsy done on right cheek with removal of basal cell carcinoma. Patient underwent suture and was given cephalexin._ Review of Systems + decreased energy, +nasal congestion. Denies headache, shortness of breath, wheezing, chest pain, nausea vomiting, or abdominal pain._ Allergies NKA Current Medications allopurinol 300 mg oral tablet (allopurinol), 300 mg, Every 24 hours Alpha Lipoic Acid (alpha-lipoic acid), 600 mg, Daily aspirin 81 mg oral tablet (aspirin), 81 mg, Every 24 hours Centrum Silver Men's oral tablet (multivitamin with minerals) ferrous sulfate 325 mg (65 mg elemental iron) oral delayed release tablet ( ferrous sulfate), 325 mg, Every 24 hours Fish Oil 1200 mg oral capsule (omega-3 polyunsaturated fatty acids), 1,200 mg, 2 times a day Flomax 0.4 mg oral capsule (tamsulosin), 0.4 mg, Every 24 hours folic acid 1 mg oral tablet (folic acid), 1 mg, Daily gemfibrozil 600 mg oral tablet (gemfibrozil), 1,200 mg, Daily glipiZIDE 5 mg oral tablet (glipizide), 5 mg, Every 24 hours hydrochlorothiazide 25 mg oral tablet (hydrochlorothiazide), 25 mg, Every 24 hours L-Arginine 500 mg oral capsule (arginine), 500 mg, Daily lisinopril 20 mg oral tablet (lisinopril), 20 mg, Daily methotrexate 2.5 mg oral tablet (methotrexate), 10 mg, Every week Saw [place] (saw palmetto), 450 mg, Daily tizanidine 4 mg oral tablet (tizanidine), 4 mg, PRN, 2 times a day tramadol 50 mg oral tablet (tramadol), 50 mg, PRN, Every 4 hours Viagra 100 mg oral tablet (sildenafil), 100 mg, PRN, Daily Vitamin B Complex oral tablet (multivitamin), 1 Tab, Every 24 hours Vitamin B-12 (cyanocobalamin), taking 3000mcg daily Vitamin D3 1000 intl units oral capsule (cholecalciferol), Comment: 2 capsules every AM Problems and Past Medical History Active Cervical neck pain with evidence of disc disease Cervical spinal stenosis Chronic gout: Onset on 1963. Chronic Kidney Disease (CKD), Stage III (Moderate) Colitis, Ulcerative: Onset on 1963. Diabetes mellitus type II: Onset on 2006. Erectile dysfunction associated with type 2 diabetes mellitus Floaters HDL deficiency: Onset on 1997. Muscle spasm of cervical muscle of neck Psoriasis: Onset on 1963. Vitamin B12 deficiency Family History Heart disease.. Mother High blood pressure.. Father Procedure History resection of small instestine for ileitis with appendectomy x 2 surgeries at 03/1964. cholestectomy at 03/14/1984. Hx prostate biopsy Colonoscopy * at 05/25/2010. resection of small intestines at 10/12/2012. Social History Alcohol Use: Denies Caffeine Use: Current Caffeine Type: Soda Caffeine Frequency: Daily Current Tobacco Usage: Former Exposure to Tobacco Smoke: Patient smokes Recreational Drug Use: Denies Smoking Status: Former smoker Physical Examination TEMP BP Pulse RR MAP O2 Sat 36.7 128/86 91 100 97 Blood Pressure Location: Left arm Oxygen Therapy: Room air Weight Height BMI BSA 90.9 kg (200.40 lbs) 180 cm 28.1 kg/m2 2.1319 m2 Scale: Standing digital General: Alert and oriented mouth: Mild posterior pharyngeal erythema, no tonsillar exudate Respiratory: Clear to auscultation bilaterally, good breath sounds Cardiac: Regular rate and rhythm, no murmur Abdomen: Soft, nontender, nondistended, positive bowel sounds_ Impression/Plan 1. Acute bronchitis (466.0): WIll provide Z-Kurt 5 days. Instructed patient to drink plenty of fluids and take [id number] decongestion._ _ Medication changes this visit: New Azithromycin 5 Day Dose Pack 250 mg oral tablet, See Instructions, Quantity: 6, Refills: 0 _ Shankar Sethi MD [Electronically Signed on 12.04.2013 05:36 PM] Shankar Sethi MD </br> 12/04/2013 [Electronically Signed on 12.04.2013 05:36 PM] Shankar Sethi MD [facility] CHEM12 eGFR () 49 mL/min >=60 11/06/2013 LOW Estimated GFR for an calculated using MDRD study equation. Verified by Discern Expert. [facility] CHEM12 eGFR 41 mL/min >=60 11/06/2013 LOW Estimated eGFR Non calculated using MDRD study equation Verified by Discern Expert. The MDRD GFR formula is valid only for adults between 18 and 85 years of age. [facility] CHEM12 Icterus Index 1 - <=3 11/06/2013 N [facility] -RBC Morphology RBC Morph Normal Normal 11/06/2013 N Discern Expert [facility] -Auto Diff Abs [place] .6 x10^3/ uL .0 - .9 11/06/2013 N [facility] CBC with Diff Instr WBC 8.47 x10^3/uL 11/06/2013 NA [facility] Outside Eye Exam Outside Eye Exam 10/23/2013 [facility] Office/Clinic Notes Office/Clinic Notes [facility] at [address] [address] [phone] PATIENT: NAJMA KELSEY MR #: [id number] : 1945 DATE SEEN: 09/18/2013 Chief Complaint Luisito is here for a 1 week follow up. History of Present Illness Najma is here for a 1-week followup of labs. Patient was seen 1 week ago to establish care. Labs were obtained. Patient presents to clinic to discuss lab work. In terms of his diabetes mellitus type 2, fasting glucose was 106 and hemoglobin A1c was 7.0. Currently well controlled on glipizide 5 mg by mouth daily. Patient also has history of anemia secondary to treatment for psoriasis. Anemia was stable at 11.7, previously at 12. Patient also has mild elevation of total protein of 8.7; will continue to monitor. Patient's liver enzymes were within normal limits. His previous labs back in July showed mild elevation of liver enzymes. In regards to patient's hypertriglyceridemia, fasting lipid panel showed triglyceride level at 151, HDL at 26, and LDL at 46. These results were conveyed to patient and discussed with him. His chronic kidney disease GFR was 41 which improved from 23 from previous labs. Creatinine level was 1.7. Patient states that he needs refills of his medication, specifically glipizide and lisinopril. He has no further complaints at this visit. Pain Assessment Cognitive Status: Independent, decisions consistent/reasonable Intensity: 7 Location: Neck Review of Systems Denies headaches, vision changes, chest pain, abdominal pain, nausea, vomiting, diarrhea. Allergies NKA Current Medications allopurinol 300 mg oral tablet (allopurinol), 300 mg, Every 24 hours, 90 Day(s) Alpha Lipoic Acid (alpha-lipoic acid), 600 mg, Daily amlodipine 10 mg oral tablet (amlodipine), 10 mg, Daily, 90 Day(s) aspirin 81 mg oral tablet (aspirin), 81 mg, Every 24 hours calcitriol, 0.25 mcg PO Mon, Tue, Fri Not taking Centrum Silver Men's oral tablet (multivitamin with minerals) diazepam 10 mg oral tablet (diazepam), 15 mg, At bedtime Not taking ferrous sulfate 325 mg (65 mg elemental iron) oral delayed release tablet ( ferrous sulfate), 325 mg, Every 24 hours Fish Oil 1200 mg oral capsule (omega-3 polyunsaturated fatty acids), 1,200 mg, 2 times a day Flomax 0.4 mg oral capsule (tamsulosin), 0.4 mg, Every 24 hours, 90 Day(s) folic acid 1 mg oral tablet (folic acid), 1 mg, Daily, 90 Day(s) gemfibrozil 600 mg oral tablet (gemfibrozil), 1,200 mg, Daily glipiZIDE 5 mg oral tablet (glipizide) hydrochlorothiazide 25 mg oral tablet (hydrochlorothiazide), 25 mg, Every 24 hours, 90 Day(s) L-Arginine 500 mg oral capsule (arginine), 500 mg, Daily lisinopril 20 mg oral tablet (lisinopril), 20 mg, 2 times a day methotrexate 2.5 mg oral tablet (methotrexate), 10 mg, Every week, 90 Day(s) metoprolol tartrate 100 mg oral tablet (metoprolol), 100 mg, 2 times a day, 90 Day(s) Saw [place] (saw palmetto), 450 mg, Daily tizanidine 4 mg oral tablet (tizanidine), 4 mg, PRN, 2 times a day tramadol 50 mg oral tablet (tramadol), 50 mg, PRN, Every 4 hours Viagra 100 mg oral tablet (sildenafil), 100 mg, PRN, Daily Viagra 50 mg oral tablet (sildenafil), 50 mg, Daily Vitamin B Complex oral tablet (multivitamin), 1 Tab, Every 24 hours Vitamin B-12 (cyanocobalamin), taking 3000mcg daily Vitamin D3 1000 intl units oral capsule (cholecalciferol), Comment: 2 capsules every AM Problems and Past Medical History Active Cervical neck pain with evidence of disc disease Cervical spinal stenosis Chronic gout: Onset on 1963. Chronic Kidney Disease (CKD), Stage III (Moderate) Colitis, Ulcerative: Onset on 1963. Diabetes mellitus type II: Onset on 2006. Erectile dysfunction associated with type 2 diabetes mellitus Floaters HDL deficiency: Onset on 1997. Muscle spasm of cervical muscle of neck Psoriasis: Onset on 1963. Vitamin B12 deficiency Procedure History resection of small instestine for ileitis with appendectomy x 2 surgeries at 03/1964. cholestectomy at 03/14/1984. Hx prostate biopsy Colonoscopy * at 05/25/2010. resection of small intestines at 10/12/2012. Social History Alcohol Use: Denies Caffeine Use: Current Caffeine Type: Soda Caffeine Frequency: Daily Current Tobacco Usage: Former Exposure to Tobacco Smoke: Patient smokes Recreational Drug Use: Denies Smoking Status: Former smoker Physical Examination TEMP BP Pulse RR MAP O2 Sat 36.5 122/74 75 90 100 Blood Pressure Location: Left arm Oxygen Therapy: Room air Weight Height BMI BSA 87.1 kg (192.02 lbs) 180 cm 26.9 kg/m2 2.0869 m2 Scale: Standing digital General: Alert and oriented x3. No acute distress. Lungs: Clear to auscultation bilaterally in all lung stanley. No wheezing. Heart: Regular rate and rhythm. No murmur. Abdomen: Soft, nontender, nondistended. Positive bowel sounds. Extremities: No cyanosis, clubbing, or edema. Impression 1. Renal insufficiency (593.9), stable. GFR of 45, creatinine of 1.7 improved from last visit. Recommend continue to follow up with his south asian history professor. 2. Anemia (285.9), stable. Hemoglobin at 11.7. Continue ferrous sulfate 325 mg by mouth daily. Anemia most likely secondary to chronic kidney disease and treatment for psoriasis. 3. Diabetes mellitus type II (250.00), currently controlled. Hemoglobin A1c at 7.0. Fasting glucose was 106. We will refill the glipizide 5 mg by mouth daily. Instructed patient to check blood sugars on a daily basis and also to check feet. Recommend obtaining a diabetic eye examination if not done as of yet. 4. High triglycerides (272.1). 5. Screening PSA (prostate specific antigen) (V76.44). Plan Medication changes this visit: Changed glipiZIDE 5 mg oral tablet, 5 mg, Q24H, Refills: 0 lisinopril 20 mg oral tablet, 20 mg, Q24H, 30 Day(s), Refills: 0 Stopped Viagra 50 mg oral tablet, 50 mg, daily, Quantity: 10, Refills: 5 calcitriol, See Instructions, Refills: 0 diazepam 10 mg oral tablet, 15 mg, AT BEDTIME, Refills: 0 metoprolol tartrate 100 mg oral tablet, 100 mg, BID, 90 Day(s), Quantity: 180, Refills: 3 We will see patient back in the next 3 months. We will obtain [___] labs 2-3 days prior to that visit. TR: [id number] HILDA#: [id number] [Electronically Signed on 12.30.2014 06:13 PM] Shankar Sethi MD </br> 09/18/2013 [Electronically Signed on 12.30.2014 06:13 PM] Shankar Sethi MD [facility] Ambulatory Depart Summary Ambulatory Depart Summary [facility] [address] [place] [phone] PERSON INFORMATION Name NAJMA KELSEY Age 68 Years 1945 12:00 AM Sex Male Language Vincentian PCP Oscar Waller MD Marital Status Time Zone N [id number] Visit Id Visit Reason 1 WEEK FOLLOW UP Specialty Enc Type [facility] Med Service PHYSOFF-Physician Office Referred by [facility] Discharge Process Discharge Tracking Id Checkout Checkin Acuity Dispo Type Arrival 09/18/2013 9:30 AM Reg Status LOS Address: [address] [facility] [id number] PHYS DOC NOTES PROVIDER INFORMATION VITALS INFORMATION Height: 5ft 10.9in Weight: 192.02 lbs (BMI: 26.9) Temp: 97.7 F Heart Rate: 75 Respiratory: O2 Sat: 100 BP: 122/74 Smoking Status: Former - 09/18/13 LOCATION INFORMATION Arrival Nurse Unit Room Bed 09/18/2013 9:48 AM ORDERS INFORMATION MEDICAL INFORMATION Allergy Info: NKA HOME MEDICATIONS allopurinol 300 mg oral tablet 300 mg, Oral, Every 24 hours, 90 Day(s), 3 Refills Alpha Lipoic Acid 600 mg, Oral, Daily amlodipine 10 mg oral tablet 10 mg, Oral, Daily, 90 Day(s), 3 Refills aspirin 81 mg oral tablet 81 mg, Oral, Every 24 hours Centrum Silver Men's oral tablet ferrous sulfate 325 mg (65 mg elemental iron) oral delayed release tablet 325 mg, Oral, Every 24 hours Fish Oil 1200 mg oral capsule 1,200 mg, Oral, 2 times a day Flomax 0.4 mg oral capsule 0.4 mg, Oral, Every 24 hours, 90 Day(s), 3 Refills folic acid 1 mg oral tablet 1 mg, Oral, Daily, 90 Day(s), 1 Refills gemfibrozil 600 mg oral tablet 1,200 mg, Oral, Daily, 90 Day(s), 3 Refills glipiZIDE 5 mg oral tablet 5 mg, Oral, Every 24 hours, 30 Day(s) Indication: Diabetes Mellitus Type 2 hydrochlorothiazide 25 mg oral tablet 25 mg, Oral, Every 24 hours, 90 Day(s), 3 Refills L-Arginine 500 mg oral capsule 500 mg, Oral, Daily lisinopril 20 mg oral tablet 20 mg, Oral, Every 24 hours, 30 Day(s) Indication: hypertension methotrexate 2.5 mg oral tablet 10 mg, Oral, Every week, 90 Day(s) Saw [place] 450 mg, Oral, Daily tizanidine 4 mg oral tablet 4 mg, Oral, 2 times a day, as needed, for Muscle Spasms, 3 Refills tramadol 50 mg oral tablet 50 mg, Oral, Every 4 hours, as needed, for pain, 3 Refills Viagra 100 mg oral tablet 100 mg, Oral, [place], [place] [address], 5 Refills, 1 hour before sexual activity Vitamin B Complex oral tablet 1 Tab, Oral, Every 24 hours Vitamin B-12 See Instructions, taking 3000mcg daily Vitamin D3 1000 intl units oral capsule , 2 capsules every AM DISCHARGE INFORMATION Discharge Disposition: Discharge Location: PATIENT EDUCATION INFORMATION Instructions: ANEMIA, Type Not Specified (Adult) Follow up: With: Address: When: Shankar Sethi [address] [place] [id number] [facility] (1) 12/20/2013 10:30:00 Comments: With: Address: When: Follow Up Lab Appointment 12/18/2013 10:30:00 Comments: DIAGNOSIS Anemia; Anemia; Diabetes mellitus type II; Diabetes mellitus type II; High triglycerides; Renal insufficiency; Screening PSA (prostate specific antigen) 09/18/2013 [facility] Amb Nurs Intake Event Amb Nurs Intake Event 2013 [facility] Depression Screening Grid 1 Depression Screening Grid 1 No [id number] No 09/11/2013 [facility] CHEM12 eGFR 41 mL/min >=60 09/11/2013 LOW Estimated eGFR Non calculated using MDRD study equation Verified by Discern Expert. The MDRD GFR formula is valid only for adults between 18 and 85 years of age. [facility] P7 LDLC 46 60 - 99 09/11/2013 LOW [facility] CHEM12 Corrected/Adjusted CA 10.2 mg/dL 8.5 - 10.1 2013 [facility] P7 Chol 102 mg/dL 100 - 200 09/11/2013 N [facility] A1C eAverage Glu 154 09/11/2013 NA Estimated average glucose has a linear relationship with Hgb A1C and is intended to simplify the discussion of glycemic control with patients. [facility] CBC (NO DIFFERENTIAL) Instr WBC 10.37 x10^3/uL 2013 NA [facility] Office/Clinic Notes Office/Clinic Notes [facility] at [address] [address] [phone] PATIENT: NAJMA KELSEY MR #: [id number] : 1945 DATE SEEN: 09/11/2013 Chief Complaint Luiisto is here to establish care. Additional Information: [facility] in [place] or mail order Bl[facility] History of Present Illness Najma is a 68-year-old male who presents to clinic to establish medical care. The patient previously saw Dr. Oscar Waller at [facility] in [place]. The patient has a known history of hypertension, diabetes mellitus type 2, gout, hypertriglyceridemia, psoriasis and chronic kidney disease. Currently, he is followed by a clothing presser, Dr. Cheli Manning, for palpitations and having that worked up. He sees Dr. Danelle eHnry, his mailing machine operator, for his psoriasis and arthritic pain. He is also followed by Dr. Davi Solares for spinal cervical stenosis. His south asian history professor is Dr. Hernando Quinones at [facility] who is following his chronic kidney disease. He was seen approximately 2-3 weeks ago. The patient reports that he has a history of ulcerative colitis. Approximately 50 years ago, he underwent a resection of his colon. Last year, he had a blockage of the small intestine. In regard to his diabetes mellitus, his last A1c was 7.9 back in May 2013. He is currently on glipizide 5 mg daily for his diabetes. For blood pressure, it is well controlled with amlodipine 10 mg by mouth, lisinopril 20 mg by mouth daily and hydrochlorothiazide 25 mg by mouth daily. For his gout, he is currently on allopurinol 300 mg by mouth daily. His last gouty attack was over 1 year ago. For hypertriglyceridemia, he is currently on gemfibrozil 1200 mg by mouth daily. The patient has psoriasis and is currently on methotrexate 10 mg by mouth a week. He takes folic acid 1 mg by mouth daily. For his pain, he takes tramadol 50 mg as needed. For spasms, he is on a muscle relaxer, tizanidine 4 mg as needed. His chronic kidney disease has been clearly stable. He has stage 3 chronic kidney disease and he is followed by his south asian history professor. Review of Systems General: No weight change, fever, chills or night sweats. HEENT: No blurred vision, headache, ear pain, rhinorrhea, dysphagia, sore throat. Respiratory: No cough, no hemoptysis or shortness of breath. Heart: Positive for intermittent palpitations. No chest pain or irregular heartbeats. GI: No nausea, vomiting, indigestion, abdominal pain, diarrhea, constipation, hematochezia or melena. Musculoskeletal: No arthralgia, myalgia or weakness. Positive for joint pain. Allergies NKA Current Medications allopurinol 300 mg oral tablet (allopurinol), 300 mg, Every 24 hours, 90 Day(s) Alpha Lipoic Acid (alpha-lipoic acid), 600 mg, Daily amlodipine 10 mg oral tablet (amlodipine), 10 mg, Daily, 90 Day(s) aspirin 81 mg oral tablet (aspirin), 81 mg, Every 24 hours calcitriol, 0.25 mcg PO Mon, Wed, Tue Not taking Centrum Silver Men's oral tablet (multivitamin with minerals) diazepam 10 mg oral tablet (diazepam), 15 mg, At bedtime Not taking ferrous sulfate 325 mg (65 mg elemental iron) oral delayed release tablet ( ferrous sulfate), 325 mg, Every 24 hours Fish Oil 1200 mg oral capsule (omega-3 polyunsaturated fatty acids), 1,200 mg, 2 times a day Flomax 0.4 mg oral capsule (tamsulosin), 0.4 mg, Every 24 hours, 90 Day(s) folic acid 1 mg oral tablet (folic acid), 1 mg, Daily, 90 Day(s) gemfibrozil 600 mg oral tablet (gemfibrozil), 1,200 mg, Daily glipiZIDE 5 mg oral tablet (glipizide) hydrochlorothiazide 25 mg oral tablet (hydrochlorothiazide), 25 mg, Every 24 hours, 90 Day(s) L-Arginine 500 mg oral capsule (arginine), 500 mg, Daily lisinopril 20 mg oral tablet (lisinopril), 20 mg, 2 times a day Different than prescribed: 1 tab PO daily methotrexate 2.5 mg oral tablet (methotrexate), 10 mg, Every week, 90 Day(s) metoprolol tartrate 100 mg oral tablet (metoprolol), 100 mg, 2 times a day, 90 Day(s) Not taking: not taking per Dr. Waller on 08/20/13 Saw [place] (saw palmetto), 450 mg, Daily tizanidine 4 mg oral tablet (tizanidine), 4 mg, PRN, 2 times a day tramadol 50 mg oral tablet (tramadol), 50 mg, PRN, Every 4 hours Viagra 100 mg oral tablet (sildenafil), 100 mg, PRN, Daily Viagra 50 mg oral tablet (sildenafil), 50 mg, Daily Not taking Vitamin B Complex oral tablet (multivitamin), 1 Tab, Every 24 hours Vitamin B-12 (cyanocobalamin), taking 3000mcg daily Vitamin D3 1000 intl units oral capsule (cholecalciferol), Comment: 2 capsules every AM Problems and Past Medical History Active Cervical neck pain with evidence of disc disease Cervical spinal stenosis Chronic gout: Onset on 1963. Chronic Kidney Disease (CKD), Stage III (Moderate) Colitis, Ulcerative: Onset on 1963. Diabetes mellitus type II: Onset on 2006. Erectile dysfunction associated with type 2 diabetes mellitus Floaters HDL deficiency: Onset on 1997. Muscle spasm of cervical muscle of neck Psoriasis: Onset on 1963. Vitamin B12 deficiency Procedure History resection of small intestine for ileitis with appendectomy x 2 surgeries at 03/1964. cholestectomy at 03/14/1984. Hx prostate biopsy Colonoscopy * at 05/25/2010. resection of small intestines at 10/12/2012. Social History Alcohol Use: Denies Caffeine Use: Current Caffeine Type: Soda Caffeine Frequency: Daily Current Tobacco Usage: Former Exposure to Tobacco Smoke: Patient smokes Recreational Drug Use: Denies Smoking Status: Former smoker Physical Examination TEMP BP Pulse RR MAP O2 Sat 36.7 116/74 69 16 88 99 Blood Pressure Location: Left arm Oxygen Therapy: Room air Weight Height BMI BSA 87 kg (191.80 lbs) 180 cm 26.9 kg/m2 2.0857 m2 Scale: Standing digital General: Patient is alert and oriented x3. No acute distress. Mouth: Moist mucous membranes with no posterior pharyngeal erythema. Neck: Supple and soft. No cervical lymphadenopathy. Heart: Regular rate and rhythm. No murmur. Lungs: Clear to auscultation bilaterally in all lung stanley. Good respiratory effort. Abdomen: Soft, nontender, nondistended. Positive bowel sounds. No hepatosplenomegaly. Extremities: No cyanosis, clubbing or edema. Impression and Plan 1. Renal insufficiency (593.9): Patient is followed up by his south asian history professor, Dr. Quinones, at [facility]. Patient is instructed to keep follow up appointment. 2. Diabetes type 2, uncontrolled (250.02): The patient to continue glipizide 5 mg by mouth daily. Will obtain hemoglobin A1c level. 3. Hyperlipidemia (272.4): Will obtain fasting lipid panel to evaluate further. Patient to continue on gemfibrozil 1200 mg by mouth daily. 4. Anemia (285.9): Patient has a history of anemia. Will obtain CBC. Orders this visit: CBC (NO DIFFERENTIAL) CHEM12 HgbA1C P7-Lipid Panel Blood pressure currently well controlled. Continue on blood pressure medication of lisinopril, hydrocholorothiazide and amlodipine. The patient was instructed to keep followup appointments with his mailing machine operator for his psoriasis. We will keep followup appointments for the patient every 3 months. TR: ERIK HILDA#: [id number] [Electronically Signed on 01.01.2015 05:41 AM] Shankar Sethi MD </br> 09/11/2013 [Electronically Signed on 01.01.2015 05:41 AM] Shankar Sethi MD [facility] Ambulatory Depart Summary Ambulatory Depart Summary [facility] [address] [place] [id number] [phone] PERSON INFORMATION Name NAJMA KELSEY Age 68 Years 1945 12:00 AM Sex Male Language Vincentian PCP Oscar Waller MD Marital Status Time Zone Visit Id Visit Reason ESTABLISH CARE Specialty Enc Type [facility] Med Service PHYSOFF-Physician Office Referred by [facility] Discharge Process Discharge Tracking Id Checkout Checkin Acuity Dispo Type Arrival 09/11/2013 9:14 AM Reg Status LOS Address: [address] [facility] [address] PHYS DOC NOTES PROVIDER INFORMATION VITALS INFORMATION Height: 5ft 10.9in Weight: 191.80 lbs (BMI: 26.9) Temp: 98.1 F Heart Rate: 69 Respiratory: 16 O2 Sat: 99 BP: 116/74 Smoking Status: Former smoker - 09/11/13 LOCATION INFORMATION Arrival Nurse Unit Room Bed 09/11/2013 9:22 AM ORDERS INFORMATION Start Time Order Type Status Stop Time Provider 09/11/2013 10:43 AM Hemoglobin A1C Laboratory Ordered 09/11/2013 10:43 AM Shankar Sethi MD 09/11/2013 10:43 AM P7 Laboratory Ordered 09/11/2013 10:43 AM Shankar Sethi MD 09/11/2013 10:43 AM CBC (NO DIFFERENTIAL) Laboratory Ordered 09/11/2013 10:43 AM Shankar Sethi MD 09/11/2013 10:43 AM Chemistry Profile Laboratory Ordered 09/11/2013 10:43 AM Shankar Sethi MD MEDICAL INFORMATION Allergy Info: NKA HOME MEDICATIONS allopurinol 300 mg oral tablet 300 mg, Oral, Every 24 hours, 90 Day(s), 3 Refills Alpha Lipoic Acid 600 mg, Oral, Daily amlodipine 10 mg oral tablet 10 mg, Oral, Daily, 90 Day(s), 3 Refills aspirin 81 mg oral tablet 81 mg, Oral, Every 24 hours calcitriol See Instructions, 0.25 mcg PO Mon, Wed, Fri Not taking Centrum Silver Men's oral tablet diazepam 10 mg oral tablet 15 mg, Oral, At bedtime Not taking ferrous sulfate 325 mg (65 mg elemental iron) oral delayed release tablet 325 mg, Oral, Every 24 hours Fish Oil 1200 mg oral capsule 1,200 mg, Oral, 2 times a day Flomax 0.4 mg oral capsule 0.4 mg, Oral, Every 24 hours, 90 Day(s), 3 Refills folic acid 1 mg oral tablet 1 mg, Oral, Daily, 90 Day(s), 1 Refills gemfibrozil 600 mg oral tablet 1,200 mg, Oral, Daily, 90 Day(s), 3 Refills glipiZIDE 5 mg oral tablet hydrochlorothiazide 25 mg oral tablet 25 mg, Oral, Every 24 hours, 90 Day(s), 3 Refills L-Arginine 500 mg oral capsule 500 mg, Oral, Daily lisinopril 20 mg oral tablet 20 mg, Oral, 2 times a day Different than prescribed: 1 tab PO daily methotrexate 2.5 mg oral tablet 10 mg, Oral, Every week, 90 Day(s) metoprolol tartrate 100 mg oral tablet 100 mg, Oral, 2 times a day, 90 Day(s), 3 Refills Not taking: not taking per Dr. Waller on 08/20/13 [place] 450 mg, Oral, Daily tizanidine 4 mg oral tablet 4 mg, Oral, 2 times a day, as needed, for Muscle Spasms, 3 Refills tramadol 50 mg oral tablet 50 mg, Oral, Every 4 hours, as needed, for pain, 3 Refills Viagra 100 mg oral tablet 100 mg, Oral, [place], [place] [id number], 5 Refills, 1 hour before sexual activity Viagra 50 mg oral tablet 50 mg, Oral, Daily, 5 Refills, 1 hour before sexual activity Not taking Vitamin B Complex oral tablet 1 Tab, Oral, Every 24 hours Vitamin B-12 See Instructions, taking 3000mcg daily Vitamin D3 1000 intl units oral capsule , 2 capsules every AM You have indicated that you are not taking one or more of your medications as prescribed. Please contact your prescribing provider as soon as possible to discuss these medications. DISCHARGE INFORMATION Discharge Disposition: Discharge Location: PATIENT EDUCATION INFORMATION Instructions: ANEMIA, Type Not Specified (Adult) Follow up: With: Address: When: Shankar Sethi [address] [place] [id number] Business (1) 09/18/13 10:00:00 Comments: 1 week follow up DIAGNOSIS Anemia; Diabetes type 2, uncontrolled; Hyperlipidemia; Renal insufficiency 09/11/2013 [facility] Care Ambulatory Depart Summary Ambulatory Depart Summary [facility] [address] [place] [id number] [phone] PERSON INFORMATION Name NAJMA KELSEY Age 68 Years 1945 12:00 AM Sex Male Language Vincentian PCP Oscar Waller MD Marital Status Time Zone Visit Id [facility]# [id number] Visit Reason ESTABLISH CARE Specialty Enc Type [facility] Med Service PHYSOFF-Physician Office Referred by [facility] Discharge Process Discharge Tracking Id Checkout Checkin Acuity Dispo Type Arrival 09/11/2013 9:14 AM Reg Status LOS Address: [address] [facility] [id number] PHYS DOC NOTES PROVIDER INFORMATION VITALS INFORMATION Height: 5ft 10.9in Weight: 191.80 lbs (BMI: 26.9) Temp: 98.1 F Heart Rate: 69 Respiratory: 16 O2 Sat: 99 BP: 116/74 Smoking Status: Former smoker - 09/11/13 LOCATION INFORMATION Arrival Nurse Unit Room Bed 09/11/2013 9:22 AM ORDERS INFORMATION MEDICAL INFORMATION Allergy Info: NKA HOME MEDICATIONS allopurinol 300 mg oral tablet 300 mg, Oral, Every 24 hours, 90 Day(s), 3 Refills Alpha Lipoic Acid 600 mg, Oral, Daily amlodipine 10 mg oral tablet 10 mg, Oral, Daily, 90 Day(s), 3 Refills aspirin 81 mg oral tablet 81 mg, Oral, Every 24 hours calcitriol See Instructions, 0.25 mcg PO Mon, Tue, Tue Not taking Centrum Silver Men's oral tablet diazepam 10 mg oral tablet 15 mg, Oral, At bedtime Not taking ferrous sulfate 325 mg (65 mg elemental iron) oral delayed release tablet 325 mg, Oral, Every 24 hours Fish Oil 1200 mg oral capsule 1,200 mg, Oral, 2 times a day Flomax 0.4 mg oral capsule 0.4 mg, Oral, Every 24 hours, 90 Day(s), 3 Refills folic acid 1 mg oral tablet 1 mg, Oral, Daily, 90 Day(s), 1 Refills gemfibrozil 600 mg oral tablet 1,200 mg, Oral, Daily, 90 Day(s), 3 Refills glipiZIDE 5 mg oral tablet hydrochlorothiazide 25 mg oral tablet 25 mg, Oral, Every 24 hours, 90 Day(s), 3 Refills L-Arginine 500 mg oral capsule 500 mg, Oral, Daily lisinopril 20 mg oral tablet 20 mg, Oral, 2 times a day Different than prescribed: 1 tab PO daily methotrexate 2.5 mg oral tablet 10 mg, Oral, Every week, 90 Day(s) metoprolol tartrate 100 mg oral tablet 100 mg, Oral, 2 times a day, 90 Day(s), 3 Refills Not taking: not taking per Dr. Waller on 08/20/13 [place] 450 mg, Oral, Daily tizanidine 4 mg oral tablet 4 mg, Oral, 2 times a day, as needed, for Muscle Spasms, 3 Refills tramadol 50 mg oral tablet 50 mg, Oral, Every 4 hours, as needed, for pain, 3 Refills Viagra 100 mg oral tablet 100 mg, Oral, Daily, [place], [place] [id number], 5 Refills, 1 hour before sexual activity Viagra 50 mg oral tablet 50 mg, Oral, Daily, 5 Refills, 1 hour before sexual activity Not taking Vitamin B Complex oral tablet 1 Tab, Oral, Every 24 hours Vitamin B-12 See Instructions, taking 3000mcg daily Vitamin D3 1000 intl units oral capsule , 2 capsules every AM You have indicated that you are not taking one or more of your medications as prescribed. Please contact your prescribing provider as soon as possible to discuss these medications. DISCHARGE INFORMATION Discharge Disposition: Discharge Location: PATIENT EDUCATION INFORMATION Instructions: ANEMIA, Type Not Specified (Adult) Follow up: With: Address: When: Shankar Sethi [address] [place], [place] [id number] [facility] () 09/18/13 10:00:00 Comments: 1 week follow up DIAGNOSIS Anemia; Diabetes type 2, uncontrolled; Hyperlipidemia; Renal insufficiency 09/11/2013 [facility] Amb Nurs Intake Event Amb Nurs Intake Event 2013 [facility] Office/Clinic Notes Office/Clinic Notes Patient: NAJMA KELSEY Age: 68 years Sex: Male : 1945 Associated Diagnoses: None Author: Cheli Manning MD Health Status Allergies Allergic Reactions (All) NKA Current medications (Selected) Prescriptions Prescribed Flomax 0.4 mg oral capsule: 1 Cap, PO, Q24H, 90 Cap Viagra 100 mg oral tablet: 1 Tab, PO, daily, 1 hour before sexual activity, 12 Tab, PRN: [id number] Viagra 50 mg oral tablet: 50 mg, 1 Tab, PO, daily, 1 hour before sexual activity , 10 Tab allopurinol 300 mg oral tablet: 1 Tab, PO, Q24H, 90 Tab amlodipine 10 mg oral tablet: 1 Tab, PO, daily, 90 Tab folic acid 1 mg oral tablet: 1 Tab, PO, daily, 90 Tab gemfibrozil 600 mg oral tablet: 2 Tab, PO, daily, 180 Tab hydrochlorothiazide 25 mg oral tablet: 1 Tab, PO, Q24H, 90 Tab methotrexate 2.5 mg oral tablet: 4 Tab, PO, qWeek, 52 Tab metoprolol tartrate 100 mg oral tablet: 1 Tab, PO, BID, 180 Tab tizanidine 4 mg oral tablet: 1 Tab, PO, BID, 60 Tab, PRN: Muscle Spasms tramadol 50 mg oral tablet: 1 Tab, PO, Q4H, 60 Tab, PRN: for pain Documented Medications Documented Alpha Lipoic Acid: 600 mg, PO, daily Centrum Silver Men's oral tablet: Fish Oil 1200 mg oral capsule: 1 Cap, PO, BID L-Arginine 500 mg oral capsule: 1 Cap, PO, daily [place]: 450 mg, PO, daily Vitamin B Complex oral tablet: 1 Tab, PO, Q24H Vitamin B-12: See Instructions, taking 3000mcg daily Vitamin D3 1000 intl units oral capsule: aspirin 81 mg oral tablet: 1 Tab, PO, Q24H calcitriol: See Instructions, 0.25 mcg PO Mon, Tue, Tue diazepam 10 mg oral tablet: 1.5 Tab, PO, AT BEDTIME ferrous sulfate 325 mg (65 mg elemental iron) oral delayed release tablet: 1 Tab , PO, Q24H glipiZIDE 5 mg oral tablet: lisinopril 20 mg oral tablet: 1 Tab, PO, BID Problem list Medical Cervical neck pain with evidence of disc disease / SNOMED CT 6283054879 / Confirmed Chronic gout / ICD-9-CM 274.02 / Confirmed Chronic Kidney Disease (CKD), Stage III (Moderate) / ICD-9-CM 585.3 / Confirmed Colitis, Ulcerative / ICD-9-CM 556.9 / Confirmed Diabetes mellitus type II / ICD-9-CM 250.00 / Confirmed HDL deficiency / ICD-9-CM 272.5 / Confirmed Muscle spasm of cervical muscle of neck / SNOMED CT 0680066081 / Confirmed Psoriasis / ICD-9-CM 696.1 / Confirmed Cervical spinal stenosis / SNOMED CT 199674007 / Confirmed Erectile dysfunction associated with type 2 diabetes mellitus / SNOMED CT 450830556 / Confirmed Vitamin B12 deficiency / ICD-9-CM 266.2 / Confirmed Results Review General results Today's results : POWERNOTE ALL RESULTS 08/27/2013 11:43 Patient Education Patient Education (Modified ) 08/27/2013 11:43 Ambulatory Pat Edu Ambulatory Pat [facility] 08/27/2013 11:43 Ambulatory Depart Summary Ambulatory Depart Summary 08/27/2013 10:55 Height 180 cm Weight 85.5 kg Peripheral Pulse Rate 57 bpm Respiratory Rate 18 br/min Systolic Blood Pressure Sitting 90 mmHg Diastolic Blood Pressure Sitting 64 mmHg Office/Clinic Note-Nurse palpitations Visit Information Chief complaint Patient here to see me today as a new office consult regarding palpitations, slow heart rate per Dr. Waller. ECG 08/20/2013. Lab 08/15/2013. Patient denies chest discomfort, shortness of breath, and palpitations since Metoprolol had discontinued 08/20/[address] Waller. . Visit type Consultation. Source of history Patient. Referral source Primary care physician: Oscar Waller MD. History of Present Illness I had the pleasure of seeing in initial electrophysiology consultation regarding palpitation. He is a very pleasant 68 year old male with a history of diabetes, chronic renal insufficiency, psoriasis, gout, and Crohn' s disease who had palpitation with exertional dyspnea 2 weeks ago.He states that palpitation was as he could his heart beat while he was sitting. He was seen in the clinic and had an EKG done which showed a heart rate of 45 with RBBB and a small Q wave in inferior leads. He was on 100mg BID of metoprolol which was tapered off. He is here states that he feels better since metoprolol was discontinued. He denies any palpitation. He also states that he feels no dyspnea at the time of activity any more. No CVA or TIA is reported by the patient. No orthopnea or PND is reported by the patient. He denies syncope or presyncopal episodes. Review of Systems Constitutional Fatigue. All systems otherwise negative Past Medical History Gastrointestinal Past Medical History Colon: colitis. Genitourinary Past Medical History Renal failure, chronic. Musculoskeletal Past Medical History Gout. Spinal stenosis. Integumentary Past Medical History Skin problems: Psoriasis. Endocrine/Metabolic Past Medical History Type 2 diabetes. Immunologic Past Medical History Vitamin B12 Deficiency. HDL Deficiency. Surgical History Gastrointestinal Surgical History Bowel resection. Cholecystectomy. Colonoscopy. Genitourinary Surgical History Genital: prostate biopsy. Family History Cardiovascular Family History Congenital heart disease: mother. Hypertension: father. Social History Diet Alcohol use negative Tobacco exposure negative Drug use negative Physical Examination Vital signs BP: sitting (systolic 90 mmHg, diastolic 64 mmHg), site left arm. Pulse: 57 beats per min. Resp: 18 breaths/ min. Temperature. Height: 180 cms. Weight: 85.5 kgs. Point of care testing Oxygen saturation 98 %. General: Well developed, well nourished, overweight, in no acute distress. Eyes: Normal conjunctiva. Mouth: Moist mucus membrane. Neck: supple, no JVD, no bruits. Heart: Regular rate and rhythm, no murmur, normal peripheral circulation, no leg edema. Lungs: Clear to auscultation bilaterally. Abdomen: normal bowel sounds, not distended, not tender. Skin: Warm and dry. Neuro: Alert and oriented. Psych: Mood and affect are congruent. Impression and Plan This is a 68 year old male with a history of diabetes and renal failure here for palpitation. He is off beta blockers and states that he feels better from palpitation and exertional dyspnea. His EKG shows presence of Q wave in inferior leads. He will have an echo to evaluate wall motion in inferior leads. He was asked to add a daily walk to his schedule. He carries a diagnosis of diabetes but he is not on statins. I will defer initiation of statins to his PCP. I will see him back in 1 year if there is no wall motion abnormality on his echo. Otherwise, he will benefit from using beta blockers and will be seen sooner. Thank you for allowing me to be involved in the care of this patient. Please do not hesitate to contact if I can be of any help. General Plan Diagnosis Benign hypertension (ICD9 401.1) Diabetes mellitus type II (ICD9 250.00) Palpitation (ICD9 785.1) General Exam Orders PowerOrders Evaluation and Management: Office Visit Level 4 New - [id number] (Order): 08/27/2013 12:06 [Electronically Signed on 08.27.2013 12:06 PM] Cheli Manning MD </br> 08/27/2013 [Electronically Signed on 08.27.2013 12:06 PM] Cheli Manning MD [facility] Care Ambulatory Depart Summary Ambulatory Depart Summary [facility] [address] [place] [address] PERSON INFORMATION Name NAJMA KELSEY Age 68 Years 1945 12:00 AM Sex Male Language Vincentian PCP Oscar Waller MD Marital Status Time Zone Visit Id Visit Reason VORAN/ PALPITATIONS, SLOW HEART RATE Specialty Enc Type [facility] Med Service SPO-Specialist Phys Office Referred by [facility] Discharge Process Discharge Tracking Id Checkout Checkin Acuity Dispo Type Arrival 08/27/2013 10:49 AM Reg Status LOS Address: [address] [place] [id number] PHYS DOC NOTES PROVIDER INFORMATION VITALS INFORMATION Height: 5ft 10.9in Weight: 188.50 lbs Temp: Heart Rate: 57 Respiratory: 18 O2 Sat: BP: Sitting BP: 90/64 LOCATION INFORMATION Arrival Nurse Unit Room Bed ORDERS INFORMATION MEDICAL INFORMATION Allergy Info: NKA HOME MEDICATIONS allopurinol 300 mg oral tablet 300 mg, Oral, Every 24 hours, 90 Day(s), 3 Refills Alpha Lipoic Acid 600 mg, Oral, Daily amlodipine 10 mg oral tablet 10 mg, Oral, Daily, 90 Day(s), 3 Refills aspirin 81 mg oral tablet 81 mg, Oral, Every 24 hours calcitriol See Instructions, 0.25 mcg PO Mon, Wed, Fri Centrum Silver Men's oral tablet diazepam 10 mg oral tablet 15 mg, Oral, At bedtime Different than prescribed: PRN ferrous sulfate 325 mg (65 mg elemental iron) oral delayed release tablet 325 mg, Oral, Every 24 hours Fish Oil 1200 mg oral capsule 1,200 mg, Oral, 2 times a day Flomax 0.4 mg oral capsule 0.4 mg, Oral, Every 24 hours, 90 Day(s), 3 Refills folic acid 1 mg oral tablet 1 mg, Oral, Daily, 90 Day(s), 1 Refills gemfibrozil 600 mg oral tablet 1,200 mg, Oral, Daily, 90 Day(s), 3 Refills glipiZIDE 5 mg oral tablet Different than prescribed: daily hydrochlorothiazide 25 mg oral tablet 25 mg, Oral, Every 24 hours, 90 Day(s), 3 Refills L-Arginine 500 mg oral capsule 500 mg, Oral, Daily lisinopril 20 mg oral tablet 20 mg, Oral, 2 times a day methotrexate 2.5 mg oral tablet 10 mg, Oral, Every week, 90 Day(s) Different than prescribed: 5mg AM, 5mg PM Every Tuesday metoprolol tartrate 100 mg oral tablet 100 mg, Oral, 2 times a day, 90 Day(s), 3 Refills Not taking Saw [place] 450 mg, Oral, Daily tizanidine 4 mg oral tablet 4 mg, Oral, 2 times a day, as needed, for Muscle Spasms, 3 Refills tramadol 50 mg oral tablet 50 mg, Oral, Every 4 hours, as needed, for pain, 3 Refills Viagra 100 mg oral tablet 100 mg, Oral, [place], [place] [id number], 5 Refills, 1 hour before sexual activity Viagra 50 mg oral tablet 50 mg, Oral, Daily, 5 Refills, 1 hour before sexual activity Not taking Vitamin B Complex oral tablet 1 Tab, Oral, Every 24 hours Vitamin B-12 See Instructions, taking 3000mcg daily Vitamin D3 1000 intl units oral capsule , 2 capsules every AM Different than prescribed: 2000 units daily You have indicated that you are not taking one or more of your medications as prescribed. Please contact your prescribing provider as soon as possible to discuss these medications. DISCHARGE INFORMATION Discharge Disposition: Discharge Location: PATIENT EDUCATION INFORMATION Instructions: Echocardiography (Echo) Follow up: With: Address: When: Cheli Tucker [employer], [address] [place] [address] Business (1) [facility], [address] [place] [address], [place] [address] Business (1) 08/26/2014 09:45:00 Comments: f/u one year With: Address: When: Cheli Tucker [employer], [address] [place] [address] Business (1) [facility], [address] [place] [address], [place], [place] [id number] Business (1) 09/03/2013 11:00:00 Comments: echo 09/03/2013 at 1100 DIAGNOSIS Benign hypertension 08/27/2013 [facility] Office/Clinic Notes Office/Clinic Notes Patient: NAJMA KELSEY Age: 68 years Sex: Male : 1945 Associated Diagnoses: None Author: Patricia Real Health Status Allergies Allergic Reactions (All) NKA Current medications (Selected) Prescriptions Prescribed Flomax 0.4 mg oral capsule: 1 Cap, PO, Q24H, 90 Cap Viagra 100 mg oral tablet: 1 Tab, PO, daily, 1 hour before sexual activity, 12 Tab, PRN: [id number] Viagra 50 mg oral tablet: 50 mg, 1 Tab, PO, daily, 1 hour before sexual activity , 10 Tab allopurinol 300 mg oral tablet: 1 Tab, PO, Q24H, 90 Tab amlodipine 10 mg oral tablet: 1 Tab, PO, daily, 90 Tab folic acid 1 mg oral tablet: 1 Tab, PO, daily, 90 Tab gemfibrozil 600 mg oral tablet: 2 Tab, PO, daily, 180 Tab hydrochlorothiazide 25 mg oral tablet: 1 Tab, PO, Q24H, 90 Tab methotrexate 2.5 mg oral tablet: 4 Tab, PO, qWeek, 52 Tab metoprolol tartrate 100 mg oral tablet: 1 Tab, PO, BID, 180 Tab tizanidine 4 mg oral tablet: 1 Tab, PO, BID, 60 Tab, PRN: Muscle Spasms tramadol 50 mg oral tablet: 1 Tab, PO, Q4H, 60 Tab, PRN: for pain Documented Medications Documented Alpha Lipoic Acid: 600 mg, PO, daily Centrum Silver Men's oral tablet: Fish Oil 1200 mg oral capsule: 1 Cap, PO, BID L-Arginine 500 mg oral capsule: 1 Cap, PO, daily Saw [place]: 450 mg, PO, daily Vitamin B Complex oral tablet: 1 Tab, PO, Q24H Vitamin B-12: See Instructions, taking 3000mcg daily Vitamin D3 1000 intl units oral capsule: aspirin 81 mg oral tablet: 1 Tab, PO, Q24H calcitriol: See Instructions, 0.25 mcg PO Mon, Wed, Fri diazepam 10 mg oral tablet: 1.5 Tab, PO, AT BEDTIME ferrous sulfate 325 mg (65 mg elemental iron) oral delayed release tablet: 1 Tab , PO, Q24H glipiZIDE 5 mg oral tablet: lisinopril 20 mg oral tablet: 1 Tab, PO, BID Problem list Medical Diabetes mellitus type II / ICD-9-CM 250.00 / Confirmed HDL deficiency / ICD-9-CM 272.5 / Confirmed Vitamin B12 deficiency / ICD-9-CM 266.2 / Confirmed Chronic gout / ICD-9-CM 274.02 / Confirmed Colitis, Ulcerative / ICD-9-CM 556.9 / Confirmed Psoriasis / ICD-9-CM 696.1 / Confirmed Chronic Kidney Disease (CKD), Stage III (Moderate) / ICD-9-CM 585.3 / Confirmed Muscle spasm of cervical muscle of neck / SNOMED CT 0156824160 / Confirmed Cervical neck pain with evidence of disc disease / SNOMED CT 1231740385 / Confirmed Cervical spinal stenosis / SNOMED CT 014868178 / Confirmed Erectile dysfunction associated with type 2 diabetes mellitus / SNOMED CT 162870080 / Confirmed Visit Information Chief complaint Patient here to see me today as a new office consult regarding palpitations, slow heart rate per Dr. Waller. ECG 08/20/2013. Lab 08/15/2013. Patient denies chest discomfort, shortness of breath, and palpitations since Metoprolol had discontinued 08/20/[address] Waller. . Visit type Consultation. Source of history Patient. Referral source Primary care physician: Oscar Waller MD. Review of Systems Constitutional Fatigue. All systems otherwise negative Past Medical History Gastrointestinal Past Medical History Colon: colitis. Genitourinary Past Medical History Renal failure, chronic. Musculoskeletal Past Medical History Gout. Spinal stenosis. Integumentary Past Medical History Skin problems: Psoriasis. Endocrine/Metabolic Past Medical History Type 2 diabetes. Immunologic Past Medical History Vitamin B12 Deficiency. HDL Deficiency. Surgical History Gastrointestinal Surgical History Bowel resection. Cholecystectomy. Colonoscopy. Genitourinary Surgical History Genital: prostate biopsy. Family History Cardiovascular Family History Congenital heart disease: mother. Hypertension: father. Social History Diet Alcohol use negative Tobacco exposure negative Drug use negative Physical Examination Vital signs BP: sitting (systolic 90 mmHg, diastolic 64 mmHg), site left arm. Pulse: 57 beats per min. Resp: 18 breaths/ min. Temperature. Height: 180 cms. Weight: 85.5 kgs. Point of care testing Oxygen saturation 98 %. 08/27/2013 [facility] Office/Clinic Notes Office/Clinic Notes Patient: NAJMA KELSEY Age: 68 years Sex: Male : 1945 Associated Diagnoses: None Author: Patricia Real Health Status Allergies Allergic Reactions (All) NKA Current medications (Selected) Prescriptions Prescribed Flomax 0.4 mg oral capsule: 1 Cap, PO, Q24H, 90 Cap Viagra 100 mg oral tablet: 1 Tab, PO, daily, 1 hour before sexual activity, 12 Tab, PRN: [id number] Viagra 50 mg oral tablet: 50 mg, 1 Tab, PO, daily, 1 hour before sexual activity , 10 Tab allopurinol 300 mg oral tablet: 1 Tab, PO, Q24H, 90 Tab amlodipine 10 mg oral tablet: 1 Tab, PO, daily, 90 Tab folic acid 1 mg oral tablet: 1 Tab, PO, daily, 90 Tab gemfibrozil 600 mg oral tablet: 2 Tab, PO, daily, 180 Tab hydrochlorothiazide 25 mg oral tablet: 1 Tab, PO, Q24H, 90 Tab methotrexate 2.5 mg oral tablet: 4 Tab, PO, qWeek, 52 Tab metoprolol tartrate 100 mg oral tablet: 1 Tab, PO, BID, 180 Tab tizanidine 4 mg oral tablet: 1 Tab, PO, BID, 60 Tab, PRN: Muscle Spasms tramadol 50 mg oral tablet: 1 Tab, PO, Q4H, 60 Tab, PRN: for pain Documented Medications Documented Centrum Silver Men's oral tablet: Fish Oil 1200 mg oral capsule: 1 Cap, PO, BID Vitamin B-12: See Instructions, taking 3000mcg daily Vitamin D3 1000 intl units oral capsule: aspirin 81 mg oral tablet: 1 Tab, PO, Q24H diazepam 10 mg oral tablet: 1.5 Tab, PO, AT BEDTIME ferrous sulfate 325 mg (65 mg elemental iron) oral delayed release tablet: 1 Tab , PO, Q24H glipiZIDE 5 mg oral tablet: lisinopril 20 mg oral tablet: 1 Tab, PO, BID Problem list Medical Diabetes mellitus type II / ICD-9-CM 250.00 / Confirmed HDL deficiency / ICD-9-CM 272.5 / Confirmed Vitamin B12 deficiency / ICD-9-CM 266.2 / Confirmed Chronic gout / ICD-9-CM 274.02 / Confirmed Colitis, Ulcerative / ICD-9-CM 556.9 / Confirmed Psoriasis / ICD-9-CM 696.1 / Confirmed Chronic Kidney Disease (CKD), Stage III (Moderate) / ICD-9-CM 585.3 / Confirmed Muscle spasm of cervical muscle of neck / SNOMED CT 3770047896 / Confirmed Cervical neck pain with evidence of disc disease / SNOMED CT 3130699719 / Confirmed Cervical spinal stenosis / SNOMED CT 740964722 / Confirmed Erectile dysfunction associated with type 2 diabetes mellitus / SNOMED CT 662788380 / Confirmed Visit Information Chief complaint Patient here to see me today as a new office consult regarding palpitations, slow heart rate per Dr. Waller. ECG 08/20/2013. Lab 08/15/2013. . Visit type Consultation. Source of history Patient. Referral source Primary care physician: Oscar Waller MD. Past Medical History Gastrointestinal Past Medical History Colon: colitis. Genitourinary Past Medical History Renal failure, chronic. Musculoskeletal Past Medical History Gout. Spinal stenosis. Integumentary Past Medical History Skin problems: Psoriasis. Endocrine/Metabolic Past Medical History Type 2 diabetes. Immunologic Past Medical History Vitamin B12 Deficiency. HDL Deficiency. Surgical History Gastrointestinal Surgical History Bowel resection. Cholecystectomy. Colonoscopy. Genitourinary Surgical History Genital: prostate biopsy. Family History Cardiovascular Family History Congenital heart disease: mother. Hypertension: father. Physical Examination Vital signs BP. Pulse. Resp. Temperature. Weight. Point of care testing 08/24/2013 [facility] Office/Clinic Notes Office/Clinic Notes Patient: NAJMA KELSEY Age: 68 years Sex: Male : 1945 Associated Diagnoses: Palpitations; Bradycardia by electrocardiogram Author: Oscar Waller MD Chief Complaint Najma presents today with palpations History of Present Illness The patient presents with palpitations, Najma is a pleasant 68 year old with CKD managed by [facility]. He started noticing palpitations 2 -3 weeks ago. He's had new medications prescribed in that period of time. He feels that he's on so many medications (22 pills this morning) that he's feeling this, accompaniedy by his weight loss and poor healing) that he's getting poisoned by them. He doesn't get dizzy when he stands but if he walks 50 feet on an incline he want's to lay down and his ability to stand very long is severely reduced. With regard to the palpitation. The onset was sudden. The duration is 3 weeks. They are characterized by a sensation of fluttering in the chest. The symptom occurs intermittently. The course is worsening. The effect on daily activities is sort of breath. No exacerbating factors. No relieving factors. Review of Systems Constitutional: Negative. Eye: Negative. Respiratory: Shortness of breath. Cardiovascular: Palpitations. Gastrointestinal: Negative. Musculoskeletal: Negative. ROS reviewed as documented in chart Health Status Allergies: Allergic Reactions (Selected) NKA Current medications: (Selected) Prescriptions Prescribed Flomax 0.4 mg oral capsule: 1 Cap, PO, Q24H, 90 Cap Viagra 100 mg oral tablet: 1 Tab, PO, daily, 1 hour before sexual activity, 12 Tab, PRN: [id number] Viagra 50 mg oral tablet: 50 mg, 1 Tab, PO, daily, 1 hour before sexual activity , 10 Tab allopurinol 300 mg oral tablet: 1 Tab, PO, Q24H, 90 Tab amlodipine 10 mg oral tablet: 1 Tab, PO, daily, 90 Tab gemfibrozil 600 mg oral tablet: 2 Tab, PO, daily, 180 Tab hydrochlorothiazide 25 mg oral tablet: 1 Tab, PO, Q24H, 90 Tab methotrexate 2.5 mg oral tablet: 4 Tab, PO, qWeek, 52 Tab metoprolol tartrate 100 mg oral tablet: 1 Tab, PO, BID, 180 Tab tizanidine 4 mg oral tablet: 1 Tab, PO, BID, 60 Tab, PRN: Muscle Spasms tramadol 50 mg oral tablet: 1 Tab, PO, Q4H, 60 Tab, PRN: for pain Documented Medications Documented Centrum Silver Men's oral tablet: Fish Oil 1200 mg oral capsule: 1 Cap, PO, BID Vitamin B-12: See Instructions, taking 3000mcg daily Vitamin D3 1000 intl units oral capsule: aspirin 81 mg oral tablet: 1 Tab, PO, Q24H diazepam 10 mg oral tablet: 1.5 Tab, PO, AT BEDTIME ferrous sulfate 325 mg (65 mg elemental iron) oral delayed release tablet: 1 Tab , PO, Q24H folic acid 1 mg oral tablet: 1 Tab, PO, daily, 90 Tab glipiZIDE 5 mg oral tablet: hydrochlorothiazide 12.5 mg oral capsule: TAKE ONE CAPSULE BY MOUTH EVERY DAY lisinopril 20 mg oral tablet: 1 Tab, PO, BID Suspended Fish Oil oral capsule: Problem list: Medical Cervical neck pain with evidence of disc disease / 2273314800 / Confirmed Chronic gout / 274.02 / Confirmed Chronic Kidney Disease (CKD), Stage III (Moderate) / 585.3 / Confirmed Colitis, Ulcerative / 556.9 / Confirmed Diabetes mellitus type II / 250.00 / Confirmed HDL deficiency / 272.5 / Confirmed Muscle spasm of cervical muscle of neck / 5958281786 / Confirmed Psoriasis / 696.1 / Confirmed Cervical spinal stenosis / 289088488 / Confirmed Erectile dysfunction associated with type 2 diabetes mellitus / 035344028 / Confirmed Vitamin B12 deficiency / 266.2 / Confirmed Histories Past Medical History: As noted in the problem list above Family History: Non contributory Procedure History: Procedure history was reviewed Physical Examination VS/Measurements VITAL SIGNS 08/20/2013 10:06 Temperature Tympanic 36.8 DegC Peripheral Pulse Rate 61 bpm Respiratory Rate 20 br/min Systolic Blood Pressure 110 mmHg Diastolic Blood Pressure 80 mmHg , Measurements from flowsheet : Measurements 08/20/2013 10:06 Height 180.3 cm Weight 85.5 kg Body Mass Index 26.3 kg/m2 General: Alert and oriented, No acute distress. Ambulation status: With steady gait. Appearance: Well nourished. Behavior: Cooperative. Hydration: Within normal limits. Skin: Within normal limits. HENT: Normal and noncontributary. Respiratory: Lungs are clear to auscultation, Respirations are non-labored, Breath sounds are equal, No chest wall tenderness. Cardiovascular: Regular rhythm, Good pulses equal in all extremities, Normal peripheral perfusion, 44 beats a minute with an occasional prematurity. Gastrointestinal: Soft, Non-tender, Normal bowel sounds, No organomegaly. Review / Management Differential diagnosis: Palpitations with significant bradyarrhythmia and intermittent skipped beats on the top of CKD, diabetes, hypertension and polypharmacy. ECG interpretation: Time 08/20/2013 10:36:00, Rate 45 beats per minute, significant bradycardia with conduction delay and prematurity. Documentation reviewed: Reviewed prior records. Course: Not improving. Impression and Plan Diagnosis Palpitations (ICD9 785.1). Bradycardia by electrocardiogram (ICD9 427.89). Orders I think Najma is correct in that medications are contributing to his symptoms of fatigue and stamina. Metoprolol may be preventing his heart from increasing in rate needed for activities and certainly is contributing to the slow rhythm. Will start by getting a cardiology consult and have him stop the metoprolol now and see what how he responds while we wait for the cardiology consult. There is a question of a preciptiating event that may have occured but this is confounded by changes in his prescriptions. His underlying diseases are putting us between a rock and a hard spot but we should do everything to simplify his medical regimen. Counseled: Patient, Regarding diagnosis, Regarding treatment, Regarding medications. Patient Instructions: BRADYCARDIA, Follow up after consults are returned. [Electronically Signed on 08.20.2013 10:45 AM] Oscar Waller MD </br> 08/20/2013 [Electronically Signed on 08.20.2013 10:45 AM] Oscar Waller MD [facility] Office/Clinic Notes Office/Clinic Notes Patient: NAJMA KELSEY Age: 68 years Sex: Male : 1945 Associated Diagnoses: None Author: Mago Jackson Visit Information Visit type: New symptom. Accompanied by: No one. Source of history: Self. Chief Complaint Najma presents today with palpations History of Present Illness The patient presents with palpitations. The onset was sudden. The duration is 3 weeks. They are characterized by a sensation of fluttering in the chest. The symptom occurs intermittently. The course is worsening. The effect on daily activities is sort of breath. No exacerbating factors. No relieving factors. Review of Systems Constitutional: Negative. Eye: Negative. Respiratory: Shortness of breath. Cardiovascular: Palpitations. Gastrointestinal: Negative. Musculoskeletal: Negative. ROS reviewed as documented in chart Health Status Allergies: Allergic Reactions (Selected) NKA Current medications: (Selected) Prescriptions Prescribed Flomax 0.4 mg oral capsule: 1 Cap, PO, Q24H, 90 Cap Viagra 100 mg oral tablet: 1 Tab, PO, daily, 1 hour before sexual activity, 12 Tab, PRN: [id number] Viagra 50 mg oral tablet: 50 mg, 1 Tab, PO, daily, 1 hour before sexual activity , 10 Tab allopurinol 300 mg oral tablet: 1 Tab, PO, Q24H, 90 Tab amlodipine 10 mg oral tablet: 1 Tab, PO, daily, 90 Tab gemfibrozil 600 mg oral tablet: 2 Tab, PO, daily, 180 Tab hydrochlorothiazide 25 mg oral tablet: 1 Tab, PO, Q24H, 90 Tab methotrexate 2.5 mg oral tablet: 4 Tab, PO, qWeek, 52 Tab metoprolol tartrate 100 mg oral tablet: 1 Tab, PO, BID, 180 Tab tizanidine 4 mg oral tablet: 1 Tab, PO, BID, 60 Tab, PRN: Muscle Spasms Documented Medications Documented Centrum Silver Men's oral tablet: Fish Oil 1200 mg oral capsule: 1 Cap, PO, BID Vitamin B-12: See Instructions, taking 3000mcg daily Vitamin D3 1000 intl units oral capsule: aspirin 81 mg oral tablet: 1 Tab, PO, Q24H diazepam 10 mg oral tablet: 1.5 Tab, PO, AT BEDTIME ferrous sulfate 325 mg (65 mg elemental iron) oral delayed release tablet: 1 Tab , PO, Q24H folic acid 1 mg oral tablet: 1 Tab, PO, daily, 90 Tab glipiZIDE 5 mg oral tablet: hydrochlorothiazide 12.5 mg oral capsule: TAKE ONE CAPSULE BY MOUTH EVERY DAY lisinopril 20 mg oral tablet: 1 Tab, PO, BID Suspended Fish Oil oral capsule: Problem list: Medical Cervical neck pain with evidence of disc disease / SNOMED CT 9129437685 / Confirmed Chronic gout / ICD-9-CM 274.02 / Confirmed Chronic Kidney Disease (CKD), Stage III (Moderate) / ICD-9-CM 585.3 / Confirmed Colitis, Ulcerative / ICD-9-CM 556.9 / Confirmed Diabetes mellitus type II / ICD-9-CM 250.00 / Confirmed HDL deficiency / ICD-9-CM 272.5 / Confirmed Muscle spasm of cervical muscle of neck / SNOMED CT 3409279115 / Confirmed Psoriasis / ICD-9-CM 696.1 / Confirmed Cervical spinal stenosis / SNOMED CT 240053238 / Confirmed Erectile dysfunction associated with type 2 diabetes mellitus / SNOMED CT 736116989 / Confirmed Vitamin B12 deficiency / ICD-9-CM 266.2 / Confirmed Histories Past Medical History: No active or resolved past medical history items have been selected or recorded. Family History: Cardiovascular Past Medical History Heart Disease Medical History: Mother High Blood Pressure Medical History: Father Family Status Father: Living Mother: Living Paternal Grandfather: Paternal Grandmother: Maternal Grandfather: Maternal Grandmother: Brother 1: Living Sister 1: Living Gastrointestinal Past Medical Hx Gastrointestinal, Other Medical History: Father, tumor growth at stomach lining Neurological Past Medical History Migraines Medical History: Sibling Ocular Past Medical History Ocular, Other Medical History: Mother, retina surgery Family Status Reviewed With Patient: Review complete Procedure History: resection of small intestines on 10/12/2012 at 67 Years. Colonoscopy * (90348) on 05/25/2010 at 65 Years. cholestectomy on 03/14/1984 at 38 Years. resection of small instestine for ileitis with appendectomy x 2 surgeries on 03/14 at 18 Years. Hx prostate biopsy. Social History Alcohol Use Alcohol Use: Denies Caffeine Use Caffeine Use: Current Caffeine Type: Soda Caffeine Frequency: Daily Current Tobacco Usage: Former Education: Graduate School Recreational Drug Use Recreational Drug Use: Denies Smoking Status: Former smoker . Physical Examination VS/Measurements Vital Signs 08/20/2013 10:06 Temperature Tympanic 36.8 DegC Peripheral Pulse Rate 61 bpm Respiratory Rate 20 br/min Systolic Blood Pressure 110 mmHg Diastolic Blood Pressure 80 mmHg Mean Arterial Pressure. 90 mmHg Blood Pressure Type Manual Blood Pressure Location Left arm 08/20/2013 9:15 Temperature Oral 36.6 DegC Peripheral Pulse Rate 64 bpm Respiratory Rate 18 br/min Systolic Blood Pressure 124 mmHg Diastolic Blood Pressure 68 mmHg Mean Arterial Pressure. 86.67 mmHg , Measurements from flowsheet : Measurements 08/20/2013 10:06 Height 180.3 cm Weight 85.5 kg Scale Balance BSA 2.0693 m2 Body Mass Index 26.3 kg/m2 08/20/2013 9:15 Height 180.3 cm Weight 86 kg BSA 2.0754 m2 Body Mass Index 26.5 kg/m2 08/20/2013 [facility] Care Ambulatory Depart Summary Ambulatory Depart Summary [facility] [address] [address] [address] [place] [id number] PERSON INFORMATION Name NAJMA KELSEY Age 68 Years 1945 12:00 AM Sex Male Language Vincentian PCP Oscar Waller MD Marital Status Time Zone Visit Id Visit Reason 4-6 weeks Specialty Enc Type [facility] Med Service OUTPT-Outpatient/Hospital Referred by [facility] Discharge Process Discharge Tracking Id Checkout Checkin Acuity Dispo Type Arrival 08/20/2013 9:02 AM Reg Status LOS Address: [address] [place] [id number] PHYS DOC NOTES PROVIDER INFORMATION VITALS INFORMATION Height: 5ft 11.0in Weight: 189.60 lbs (BMI: 26.5) Temp: 97.9 F Heart Rate: 64 Respiratory: 18 O2 Sat: BP: 124/68 LOCATION INFORMATION Arrival Nurse Unit Room Bed ORDERS INFORMATION MEDICAL INFORMATION Allergy Info: NKA HOME MEDICATIONS allopurinol 300 mg oral tablet 300 mg, Oral, Every 24 hours, 90 Day(s), 3 Refills amlodipine 10 mg oral tablet 10 mg, Oral, Daily, 90 Day(s), 3 Refills aspirin 81 mg oral tablet 81 mg, Oral, Every 24 hours Centrum Silver Men's oral tablet ferrous sulfate 325 mg (65 mg elemental iron) oral delayed release tablet 325 mg, Oral, Every 24 hours Fish Oil 1200 mg oral capsule 1,200 mg, Oral, 2 times a day Fish Oil oral capsule , 2000 mg daily Flomax 0.4 mg oral capsule 0.4 mg, Oral, Every 24 hours, 90 Day(s), 3 Refills folic acid 1 mg oral tablet 1 mg, Oral, Daily gemfibrozil 600 mg oral tablet 1,200 mg, Oral, Daily, 90 Day(s), 3 Refills glipiZIDE 5 mg oral tablet hydrochlorothiazide 12.5 mg oral capsule , TAKE ONE CAPSULE BY MOUTH EVERY DAY Not taking: Taking 25mg pills hydrochlorothiazide 25 mg oral tablet 25 mg, Oral, Every 24 hours, 90 Day(s), 3 Refills lisinopril 20 mg oral tablet 40 mg, Oral, Every 24 hours, 90 Day(s), 2 Refills methotrexate 2.5 mg oral tablet 10 mg, Oral, Every week, 90 Day(s) metoprolol tartrate 100 mg oral tablet 100 mg, Oral, 2 times a day, 90 Day(s), 3 Refills tizanidine 4 mg oral tablet 4 mg, Oral, 2 times a day, as needed, for Muscle Spasms, 3 Refills tramadol 50 mg oral tablet 50 mg, Oral, Every 4 hours, as needed, for pain, 3 Refills Viagra 100 mg oral tablet 100 mg, [place], [place] [address], 5 Refills, 1 hour before sexual activity Viagra 50 mg oral tablet 50 mg, Oral, Daily, 5 Refills, 1 hour before sexual activity Vitamin B-12 See Instructions, taking 3000mcg daily Vitamin D3 1000 intl units oral capsule , 2 capsules every AM You have indicated that you are not taking one or more of your medications as prescribed. Please contact your prescribing provider as soon as possible to discuss these medications. DISCHARGE INFORMATION Discharge Disposition: Discharge Location: PATIENT EDUCATION INFORMATION Instructions: Follow up: DIAGNOSIS 08/20/2013 [facility] Care Amb Nurs Intake w Hx Event Amb Nurs Intake w Hx Event 08/20/2013 [facility] Level of Functioning Grid-Clinic Level of Functioning Grid-Clinic 08/20/2013 [facility] Office/Clinic Notes Office/Clinic Notes [facility] [address] [place] [address] [facility] PATIENT: NAJMA KELSEY MR #: [id number] : 1945 DATE SEEN: 08/20/2013 Chief Complaint Here for a follow up for joint pain and hand x-rays. History of Present Illness In the past week, he reports the following... He states his pain level is at a 1/10 because of his illness (0=No pain, 5= Moderate pain, 10=Severe pain). His acceptable level of pain is 1/10 (0=No pain, 5=Moderate Pain, 10=Severe Pain ). His level of fatigue is rated 8/10, with 0=No Problem and 10=Major Problem. His level depression is rated 1/10 with 0=No Depression and 10=Severe Depression. He rates his ability to rest at night at 1/10 with 0=Sleep is not problem and 10 =Sleep is a major problem. He rates his anxiety at 1/10 with 0=Anxiety is no problem and 10=Anxiety is a major problem. He reports a level of 7/10 regarding trouble with his stomach (ie nausea, heartburn, bloating, etc.). Considering all the ways that his illness affects him, he states that he has felt 3/10 with 0=Very well and 10=Very poor. At this visit, he rates his satisfaction with his health at 7/10 with 0=Very satisfied and 10=Very dissatisfied. He rates his ability to purchase his current medications at 0/10 with 0=No difficulty, 5=Some difficulty, and 10=Extreme difficulty. FN (range 0 - 10)=0.33 PS (range 0 - 10)=4.4 RAPID3 (range 0 - 10)=1.44 A pleasant 68-year-old male who is here today in follow up of hand joint pain as well as psoriasis. I do not think the patient has psoriatic arthritis but rather psoriasis and osteoarthritis. I did get hand x-rays last time and reviewed them with the patient today. Patient does have some narrowing over the 1st DIP (distal interphalangeal) on the left hand as well as on the 5th of the left hand. The 5th hand has previously been fractured. The left I think is osteoarthritis with a little bit of an overhang. I want to watch this closely to make sure we are not developing some psoriatic arthritis. Currently is taking methotrexate 10 mg once a week. Does take this on Fridays as well as folic acid daily. Most recently notably he had an increase in his creatinine as well as in his liver function testing. Creatinine actually doubled from around 1.8 to 2.73 and his ALT was 146 and AST 95. He has had multiple new medications added for blood pressure as well as tizanidine for muscle since our last visit. Patient is quite frustrated thinking that all these medications combined could be contributing to this liver enzyme elevation. In addition he tells me has a hyperawareness of his heart beat. He can feel it at times which is new for the patient. The nurse when checking him in also noticed a distal pulse that was irregular. In brief review patient has had psoriasis for multiple years and a remote history of Crohn's disease. Has not really had any joint pain other than triggering of his hands as well as some DIP new nodularities. Patient also has a history of chronic renal insufficiency and sees Dr. Ornelas at [facility] with a baseline creatinine around 1.6. Review of Systems Constitutional Symptoms Recent Weight Change: Yes Fatigue/Weakness: Yes Ears/Nose/Throat Hearing Loss or Ringing: No Chronic Sinus Problems: No Oral Ulcers: No Swollen Glands: No Dry Mouth: Yes Eyes Dry Eyes: No Red Eyes: No Cardiovascular Heart Trouble: No Palpitation: No Respiratory Chronic or Frequent Coughs: No Shortness Of Breath: Yes Asthma: No Chest Pain With Deep Breath: No Gastrointestinal Heartburn: No Ulcers: No Genitourinary Frequent Urination: Yes Blood In Urine: No Musculoskeletal Morning Stiffness Greater Than One Hour: No Swollen Joints: Yes Painful Joints: Yes Warm Joints: No Muscle Weakness: Yes Muscle Pain: Yes Skin Facial Rashes: No Hair Loss: No Unusual Rashes Related To Sunlight: No Color Changes Of Hands: No Neurological Seizures: No Frequent Recurring Headaches: No Stroke: No Psychiatric Nervousness: No Depression: No Endocrine Diabetes: Yes Heat or Cold Intolerance: No Hematological/Lymphatic History Of Anemia: No History Of Low White Count: No History Of Low Platelet Count: No History Of Blood Clots: No Miscarriages: No Immunological/Allergic History Of Abnormal Arthritis Blood Tests: No History Of A Positive ROSSI Blood Test: No Allergies NKA Current Medications allopurinol 300 mg oral tablet (allopurinol), 300 mg, Every 24 hours amlodipine 10 mg oral tablet (amlodipine), 10 mg, Daily aspirin 81 mg oral tablet (aspirin), 81 mg, Every 24 hours Centrum Silver Men's oral tablet (multivitamin with minerals) ferrous sulfate 325 mg (65 mg elemental iron) oral delayed release tablet ( ferrous sulfate), 325 mg, Every 24 hours Fish Oil 1200 mg oral capsule (omega-3 polyunsaturated fatty acids), 1,200 mg, 2 times a day Flomax 0.4 mg oral capsule (tamsulosin), 0.4 mg, Every 24 hours folic acid 1 mg oral tablet (folic acid), 1 mg, Daily gemfibrozil 600 mg oral tablet (gemfibrozil), 1,200 mg, Daily glipiZIDE 5 mg oral tablet (glipizide) hydrochlorothiazide 12.5 mg oral capsule (hydrochlorothiazide) Not taking: Taking 25mg pills hydrochlorothiazide 25 mg oral tablet (hydrochlorothiazide), 25 mg, Every 24 hours lisinopril 20 mg oral tablet (lisinopril), 40 mg, Every 24 hours, 90 Day(s) methotrexate 2.5 mg oral tablet (methotrexate), 10 mg, Every week metoprolol tartrate 100 mg oral tablet (metoprolol), 100 mg, 2 times a day tizanidine 4 mg oral tablet (tizanidine), 4 mg, PRN, 2 times a day tramadol 50 mg oral tablet (tramadol), 50 mg, PRN, Every 4 hours Viagra 100 mg oral tablet (sildenafil), 100 mg, PRN, Daily Viagra 50 mg oral tablet (sildenafil), 50 mg, Daily Vitamin B-12 (cyanocobalamin), taking 3000mcg daily Vitamin D3 1000 intl units oral capsule (cholecalciferol), Comment: 2 capsules every AM Problems and Past Medical History Active Cervical neck pain with evidence of disc disease Cervical spinal stenosis Chronic gout: Onset on 1963. Chronic Kidney Disease (CKD), Stage III (Moderate) Colitis, Ulcerative: Onset on 1963. Diabetes mellitus type II: Onset on 2006. Erectile dysfunction associated with type 2 diabetes mellitus HDL deficiency: Onset on 1997. Muscle spasm of cervical muscle of neck Psoriasis: Onset on 1963. Vitamin B12 deficiency Family History Cardiovascular Past Medical History Heart Disease Medical History: Mother High Blood Pressure Medical History: Father Family Status Father: Living Mother: Living Paternal Grandfather: Paternal Grandmother: Maternal Grandfather: Maternal Grandmother: Brother 1: Living Sister 1: Living Gastrointestinal Past Medical Hx Gastrointestinal, Other Medical History: Father, tumor growth at stomach lining Neurological Past Medical History Migraines Medical History: Sibling Ocular Past Medical History Ocular, Other Medical History: Mother, retina surgery Family Status Reviewed With Patient: Review complete Procedure History resection of small intestine for ileitis with appendectomy x 2 surgeries at 03/1964. cholestectomy at 03/14/1984. Hx prostate biopsy Colonoscopy * at 05/25/2010. resection of small intestines at 10/12/2012. Social History Alcohol Use: Denies Caffeine Use: Current Caffeine Type: Soda Caffeine Frequency: Daily Current Tobacco Usage: Former Education: Graduate School Exposure to Tobacco Smoke: Patient smokes Recreational Drug Use: Denies Smoking Status: Former smoker Living Situation: Home independently Physical Examination TEMP BP Pulse RR MAP O2 Sat 36.6 124/68 64 18 86.67 Weight Height BMI BSA 86 kg (189.60 lbs) 180.3 cm 26.5 kg/m2 2.0754 m2 General: Alert and oriented x 3. No acute distress. Psychiatric: Oriented to time and place. Appropriate mood and affect. Skin: No rash. Eyes: Clear. Mouth: No oral ulcers. Lymphatics: No abnormal lymph nodes. Cardiovascular: Heart sounds are quite muffled to me today especially over the left anterior sternal border. I do hear occasional irregularity. I wonder about PVCs (premature ventricular contraction)? Respiratory: Bilaterally clear to auscultation with no added sounds. Gastrointestinal: Abdomen is soft. No focal tenderness. Liver and spleen nonpalpable. 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 Also has some squaring of his CMC joint on the right hand side. Neurologic: Normal muscle strength 5/5 upper and lower limbs bilaterally. Extremities: No clubbing, cyanosis or edema. Impression 1. Psoriasis (696.1) 2. 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 Elevated LFTs (790.6) 4. Irregular heart beat (427.9) A 68-year-old male who is here today in followup for psoriasis and osteoarthritis. I do not believe he has psoriatic arthritis at this time. Also had chronic neck pain for which he sees Dr. Davi Solares with some cervical spinal stenosis that was diagnosed via MRI. Patient today is complaining of irregular heart beat, recent elevation of LFTs as well as recent elevation of a chronic renal failure. Plan 1. Psoriasis -Patient has been seeing Dr. Anam Borges. -Patient gets blood work every three months and has been on a stable dose of methotrexate and is happy with his skin disease. -Continue methotrexate 10 mg by mouth each week. Continue folic acid 1 mg a day. 2. Osteoarthritis of the hands. -I did review the x-rays with him. I would treat this symptomatically with arthritis gloves, Biofreeze, etc. as needed. 3. Elevated LFTs. -Multiple new medications for blood pressure as well as for muscle relaxation. -I would suggest that he meet with Dr. Oscar Waller today to discuss this. 4. Irregular heart beat. -Distal pulse somewhat irregular. Muffled heart sounds and what I think are likely PVCs. -I did discuss with Dr. Waller today. He is going to bring him over to his office and get an EKG as we do not have that capacity here. Patient can return to clinic in three months. TR: CARMEN HILDA#: [id number] [Electronically Signed on 08.30.2013 11:48 AM] Danelle Henry, DO FACR </br> 08/20/2013 [Electronically Signed on 08.30.2013 11:48 AM] Danelle Henry, DO FACR [facility] CHEM12 eGFR () 28 mL/min >=60 08/15/2013 LOW Estimated GFR for an calculated using MDRD study equation. Verified by Discern Expert. [facility] CHEM12 ALT/GPT 146 U/L 30 - 65 08/15/2013 HI [facility] -RBC Morphology RBC Morph Normal Normal 08/15/2013 N Discern Expert [facility] -Auto Diff Abs Lymph 2.0 x10^ 3/uL .8 - 4.3 08/15/2013 N [facility] CBC with Diff RBC 4.04 x10^6/ uL 4.60 - 6.20 08/15/2013 LOW [facility] Coding Summary Coding Summary CODING DATE: 07/31/2013 FINAL [facility] STATUS: Home PAYOR: Medicare ADMIT DX: REASON FOR VISIT DX: 723.1 CERVICALGIA FINAL DX: PRINCIPAL: 723.0 Spinal Stenosis of Cervical Region SECONDARY: PROCEDURES DOCTOR NAME DATE NOTE: The code number assigned matches the documented diagnosis and / or procedure in the patient's chart. However, the narrative phrase printed from the coding software may appear abbreviated, or result in slightly different terminology. Coded By: Hafsa Kaur Date Saved: 07/31/2013 02:50 pm 07/31/2013 [facility] Ambulatory Depart Summary Ambulatory Depart Summary [facility] [address], [address] [place] [address] PERSON INFORMATION Name NAJMA KELSEY Age 68 Years 1945 12:00 AM Sex Male Language Vincentian PCP Oscar Waller MD Marital Status Time Zone N [id number] Visit Id Visit Reason FOLLOW UP AFTER MRI DONE 07/25/13 AT [facility] Specialty Enc Type [facility] Med Service SPO-Specialist Phys Office Referred by [facility] Discharge Process Discharge Tracking Id Checkout Checkin Acuity Dispo Type Arrival 07/27/2013 2:43 PM Reg Status LOS Address: [address] [place] [id number] PHYS DOC NOTES PROVIDER INFORMATION VITALS INFORMATION Height: 5ft 11.0in Weight: 210.43 lbs (BMI: 29.4) Temp: 98.8 F Heart Rate: Respiratory: 12 O2 Sat: BP: 140/70 LOCATION INFORMATION Arrival Nurse Unit Room Bed ORDERS INFORMATION MEDICAL INFORMATION Allergy Info: NKA HOME MEDICATIONS allopurinol 300 mg oral tablet 300 mg, Oral, Every 24 hours, 90 Day(s), 3 Refills amlodipine 10 mg oral tablet 10 mg, Oral, Daily, 90 Day(s), 3 Refills aspirin 81 mg oral tablet 81 mg, Oral, Every 24 hours Centrum Silver Men's oral tablet ferrous sulfate 325 mg (65 mg elemental iron) oral delayed release tablet 325 mg, Oral, Every 24 hours Fish Oil 1200 mg oral capsule 1,200 mg, Oral, 2 times a day Fish Oil oral capsule , 2000 mg daily Flomax 0.4 mg oral capsule 0.4 mg, Oral, Every 24 hours, 90 Day(s), 3 Refills folic acid 1 mg oral tablet 1 mg, Oral, Daily gemfibrozil 600 mg oral tablet 1,200 mg, Oral, Daily, 90 Day(s), 3 Refills glipiZIDE 5 mg oral tablet hydrochlorothiazide 12.5 mg oral capsule , TAKE ONE CAPSULE BY MOUTH EVERY DAY hydrochlorothiazide 25 mg oral tablet 25 mg, Oral, Every 24 hours, 90 Day(s), 3 Refills lisinopril 20 mg oral tablet 40 mg, Oral, Every 24 hours, 90 Day(s), 2 Refills methotrexate 2.5 mg oral tablet 10 mg, Oral, Every week, 90 Day(s) metoprolol tartrate 100 mg oral tablet 100 mg, Oral, 2 times a day, 90 Day(s), 3 Refills Restoril 15 mg oral capsule 15 mg, Oral, At bedtime, 90 Day(s), as needed, for sleep, 1 Refills tizanidine 4 mg oral tablet 4 mg, Oral, 2 times a day, as needed, for Muscle Spasms tramadol 50 mg oral tablet 50 mg, Oral, Every 4 hours, as needed, for pain, 3 Refills Viagra 50 mg oral tablet 50 mg, Oral, Daily, 5 Refills, 1 hour before sexual activity Vitamin D3 1000 intl units oral capsule , 2 capsules every AM DISCHARGE INFORMATION Discharge Disposition: Discharge Location: PATIENT EDUCATION INFORMATION Instructions: Follow up: With: Address: When: No Follow Up Appointment Needed Comments: NAJMA IS TO FOLLOW UP NEEDED WITH DR. SOLARES (PRN). DIAGNOSIS 07/27/2013 [facility] Care Amb Nurs Intake Event Amb Nurs Intake Event 2013 [facility] Office/Clinic Notes Office/Clinic Notes [facility] [address], [address] [place] [address] [facility] PATIENT: NAJMA KELSEY MR #: [id number] PCP: Oscar Waller MD REFERRING PHYSICIAN: Danelle Henry DO FACR : 1945 DATE SEEN: 07/27/2013 Chief Complaint The patient returns in regards to his neck pain. History of Present Illness Mr. Kelsey is a pleasant 68-year-old who actually I had seen last week and he was not complaining of any pain in his neck. He had intermittent stiffness, but then just after seeing him he developed some severe recurrence of his pain. Because of the intermittent and persistent nature of it, it had been going on months, I obtained an MRI. The MRI does show what I would describe as moderate central canal stenosis at the C3-4 level, no abnormal cord signal. There is neural foraminal narrowing at multiple levels. He has a lesser degree of central stenosis at the 4-5 level. There are severe degenerative changes, modic changes, and disc disease at multiple levels. Today, he is actually pain free. He tells me that he has taken tramadol and the tizanidine and that has been helpful. He is denying any burning in the hands, numbness in the hands or feet, incontinence of bowel or bladder, problems with walking, problems with bending his neck though he does feel stiffness. He is not having any radiating symptoms into the arms with movement of the neck. His QOL (quality of life) is rated at 10/10. Review of Systems PLASTER CASTER: NA Musculoskeletal: Back Pain, Stiffness Pertinent negative for the following system(s): Constitutional, HEENT, Respiratory, Cardiovascular, GI, , Integumentary, Neurological, Hematologic, Endocrine, Psychiatric Allergies NKA Current Medications allopurinol 300 mg oral tablet (allopurinol), 300 mg, Every 24 hours amlodipine 10 mg oral tablet (amlodipine), 10 mg, Daily aspirin 81 mg oral tablet (aspirin), 81 mg, Every 24 hours Centrum Silver Men's oral tablet (multivitamin with minerals) ferrous sulfate 325 mg (65 mg elemental iron) oral delayed release tablet ( ferrous sulfate), 325 mg, Every 24 hours Fish Oil 1200 mg oral capsule (omega-3 polyunsaturated fatty acids), 1,200 mg, 2 times a day Flomax 0.4 mg oral capsule (tamsulosin), 0.4 mg, Every 24 hours folic acid 1 mg oral tablet (folic acid), 1 mg, Daily gemfibrozil 600 mg oral tablet (gemfibrozil), 1,200 mg, Daily glipiZIDE 5 mg oral tablet (glipizide) hydrochlorothiazide 12.5 mg oral capsule (hydrochlorothiazide) hydrochlorothiazide 25 mg oral tablet (hydrochlorothiazide), 25 mg, Every 24 hours lisinopril 20 mg oral tablet (lisinopril), 40 mg, Every 24 hours methotrexate 2.5 mg oral tablet (methotrexate), 10 mg, Every week metoprolol tartrate 100 mg oral tablet (metoprolol), 100 mg, 2 times a day Restoril 15 mg oral capsule (temazepam), 15 mg, PRN, At bedtime, 90 Day(s) tizanidine 4 mg oral tablet (tizanidine), 4 mg, PRN, 2 times a day tramadol 50 mg oral tablet (tramadol), 50 mg, PRN, Every 4 hours Viagra 50 mg oral tablet (sildenafil), 50 mg, Daily Vitamin D3 1000 intl units oral capsule (cholecalciferol), Comment: 2 capsules every AM Problems and Past Medical History Active Cervical neck pain with evidence of disc disease Cervical spinal stenosis Chronic gout: Onset on 1963. Chronic Kidney Disease (CKD), Stage III (Moderate) Colitis, Ulcerative: Onset on 1963. Diabetes mellitus type II: Onset on 2006. HDL deficiency: Onset on 1997. Muscle spasm of cervical muscle of neck Psoriasis: Onset on 1963. Vitamin B12 deficiency Family History Cardiovascular Past Medical History Heart Disease Medical History: Mother High Blood Pressure Medical History: Father Family Status Father: Living Mother: Living Paternal Grandfather: Paternal Grandmother: Maternal Grandfather: Maternal Grandmother: Brother 1: Living Sister 1: Living Gastrointestinal Past Medical Hx Gastrointestinal, Other Medical History: Father, tumor growth at stomach lining Neurological Past Medical History Migraines Medical History: Sibling Ocular Past Medical History Ocular, Other Medical History: Mother, retina surgery Family Status Reviewed With Patient: Review complete Procedure History resection of small intestine for ileitis with appendectomy x 2 surgeries at 03/1964. cholestectomy at 03/14/1984. Hx prostate biopsy Colonoscopy * at 05/25/2010. resection of small intestines at 10/12/2012. Social History Alcohol Use: Denies Caffeine Use: Current Caffeine Type: Soda Caffeine Frequency: Daily Current Tobacco Usage: Former Exposure to Tobacco Smoke: Patient smokes Recreational Drug Use: Denies Smoking Status: Former smoker Physical Examination TEMP BP Pulse RR MAP O2 Sat 37.1 140/70 12 93.33 Blood Pressure Location: Right arm Oxygen Therapy: Room air Weight Height BMI BSA 95.45 kg (210.43 lbs) 180.3 cm 29.4 kg/m2 2.1864 m2 Scale: Stated weight Vitals: As noted above. General: This is a well-developed and well-nourished individual in no acute distress. Mental status: Alert and oriented x3, conversant with appropriate mood and affect. NEUROLOGIC: Gait/Gross Motor: Gait including tandem and heel and toe walking was completely normal. Balance: His Romberg is negative. Strength: His strength is preserved. Reflexes: His reflexes are within normal limits. He has a negative Dereck's sign and no clonus in the ankles. Toes are downgoing to plantar stimulation. MUSCULOSKELETAL: Spine: There are no gross axial deformities. Percussion of the spine is negative. His spine evaluation reveals reduced range of motion in all directions of the cervical spine but no particular soreness. He does not have any Lhermitte's phenomenon present. Pulmonary: Breathing is unlabored and without use of accessory muscles. DATA: Pertinent labs, imaging studies and medical history were reviewed. I reviewed the MRI images with the patient. I showed him the area of maximal stenosis at the 3-4 and 4-5 levels. Impression 1. Cervical neck pain with evidence of disc disease (722.91) 2. Cervical spinal stenosis (723.0) 3. Diabetes mellitus type II (250.00) Plan I discussed with Mr. Kelsey that he does have moderate central canal stenosis without evidence of myelopathy either clinically or radiographically. However, he is at a higher risk for spinal cord injury which ultimately could result in quadriplegia if he were to have significant trauma to the neck. This is rare but he is aware now of the warning signs and symptoms of slowly developing myelopathy. He is not interested in any kind of surgical evaluation unless it is a "life and situation". At this point to honor those wishes since he is asymptomatic, I would recommend observation. I discussed Medrol Dosepak for severe pain, and otherwise to keep up with gentle cervical spine exercises. At this point he is denying my suggestion for evaluation by neurosurgery. Please feel free to call me with any questions. Thank you very much for this consultation. Sincerely, Davi Solares MD cc: DO Oscar Ojeda MD TR: [facility]IN[facility] HILDA#: [id number] [Electronically Signed on 08.02.2013 01:12 PM] Davi Solares MD </br> 07/27/2013 [Electronically Signed on 08.02.2013 01:12 PM] Davi Solares MD [facility] MR Cervical Without Contrast MR Cervical Without Contrast NAJMA KELSEY MR CERVICAL SPINE WITHOUT CONTRAST INDICATION: Neck pain and stiffness. Noncontrast images are available. There is diffuse disc space narrowing and spurring throughout the spine. On the sagittal images at 3-4 and 4-5 there is narrowing of the thecal sac and impingement on the cord both anterior and posterior changes. There is mild wedging of C5 and 6 which does not appear recent. No abnormal signal is seen in the cord. There is no evidence of fracture or bone destruction. The sagittal STIR images confirm the findings. Axial images at 2-3 show a small left sided spur catching the exiting nerve root. At 3-4 there is pronounced deformity of the thecal sac anteriorly with impingement of both exiting nerve roots with near obliteration of the right. At C4-5 there are similar findings, perhaps a little more left sided. Actually at 5-6 there are moderate sized spurs catching both exiting nerve roots at this level as well. Then 6-7 and 7-1 show mild spurring. IMPRESSION: Significant findings of a 3-4 and to a lesser extent 4-5 spinal stenosis related to large spurs. Spurs at 5-6 which impinge on the exiting nerve roots particularly the right without a significant spinal stenosis. Final Report Dictated By: Chris Hutchison MD Dictated Dt/tm:07.25.2013 10:50 Signed By: Chris Hutchison MD Signed Dt/tm: 07/25/2013 11:35 Transcribed By: COREY Transcribed Dt/tm: 07/25/2013 11:16</br> Clinical History Current History pt started having neck pain 4-5 weeks ago. pain/stiffness will go away but then will return after any type of manipulation or when working a lot. Previous History/Surgery no hx of surgery on c spine 07/25/2013 Final Report Dictated By: Chris Hutchison MD Dictated Dt/tm:07.25.2013 10:50 Signed By: Chris Hutchison MD Signed Dt/tm: 07/25/2013 11:35 Transcribed By: COREY Transcribed Dt/tm: 07/25/2013 11:16 [facility] Office/Clinic Notes Office/Clinic Notes This nurse called and spoke to Najma, notifying him of MRI of Cervical Appt. 07/25/13, at 10:00am and follow up appointment with Dr. Solares at [place], 08/10/13 at 08:45am for MRI Results. Najma showed understanding and was appreciative of call. 07/23/2013 [facility] Office/Clinic Notes Office/Clinic Notes [facility] [address], [address] [place] [address] [facility] PATIENT: NAJMA KELSEY MR #: [id number] PCP: Oscar Waller MD REFERRING PHYSICIAN: Danelle Henry DO FACR : 1945 DATE SEEN: 07/13/2013 Chief Complaint Neck pain. History of Present Illness Mr. Kelsey is a very pleasant gentleman with a past medical history notable for Crohn's disease and a recent significant illness that required hospitalization secondary to what sounds like an intestinal obstruction. However, he also was found to have kidney failure and did have a lengthy hospitalization. Patient was sent to Dr. Danelle Henry with regard to psoriasis and trigger finger. He had an injection by her and that significantly helped. He was also complaining of some neck pain so she obtained some x-rays and he was referred over here. The patient tells me that after the injection his hand pain is nearly completely gone. He has also had intermittent soreness in the neck that comes and goes. It is achy and he gets stiff. He thinks it changes with the weather. He has limited range of motion at times but then the pain will go away. He was given some tramadol but he is rarely having to take this now. He cannot take NSAIDs because of his renal failure. Patient tells me he is not having any shooting pain down the arms and no significant neck pain currently. No shooting pains in the legs. No numbness or tingling. No significant restrictions in range of motion. In general, he wants to find out the results of his neck x-rays but he is not having a lot of complaints currently. He does not do any regular exercises for the neck. He is curious about some home exercises. He has no pain with valsalva. No red flag signs or symptoms. No fevers, weight loss or bowel or bladder changes. Review of Systems PLASTER CASTER: NA Pertinent negative for the following system(s): Constitutional, HEENT, Respiratory, Cardiovascular, GI, , Integumentary, Musculoskeletal, Neurological, Hematologic, Endocrine, Psychiatric Allergies NKA Current Medications allopurinol 300 mg oral tablet (allopurinol), 300 mg, Every 24 hours amlodipine 10 mg oral tablet (amlodipine), 10 mg, Daily aspirin 81 mg oral tablet (aspirin), 81 mg, Every 24 hours Centrum Silver Men's oral tablet (multivitamin with minerals) ferrous sulfate 325 mg (65 mg elemental iron) oral delayed release tablet ( ferrous sulfate), 325 mg, Every 24 hours Fish Oil 1200 mg oral capsule (omega-3 polyunsaturated fatty acids), 1,200 mg, 2 times a day Flomax 0.4 mg oral capsule (tamsulosin), 0.4 mg, Every 24 hours folic acid 1 mg oral tablet (folic acid), 1 mg, Daily gemfibrozil 600 mg oral tablet (gemfibrozil), 1,200 mg, Daily glipiZIDE 5 mg oral tablet (glipizide) hydrochlorothiazide 12.5 mg oral capsule (hydrochlorothiazide) hydrochlorothiazide 25 mg oral tablet (hydrochlorothiazide), 25 mg, Every 24 hours lisinopril 20 mg oral tablet (lisinopril), 40 mg, Every 24 hours methotrexate 2.5 mg oral tablet (methotrexate), 10 mg, Every week metoprolol tartrate 100 mg oral tablet (metoprolol), 100 mg, 2 times a day Restoril 15 mg oral capsule (temazepam), 15 mg, PRN, At bedtime, 90 Day(s) tramadol 50 mg oral tablet (tramadol), 50 mg, PRN, Every 4 hours Viagra 50 mg oral tablet (sildenafil), 50 mg, Daily Vitamin D3 1000 intl units oral capsule (cholecalciferol), Comment: 2 capsules every AM Problems and Past Medical History Active Chronic gout: Onset on 1963. Chronic Kidney Disease (CKD), Stage III (Moderate) Colitis, Ulcerative: Onset on 1963. Diabetes mellitus type II: Onset on 2006. HDL deficiency: Onset on 1997. Muscle spasm of cervical muscle of neck Psoriasis: Onset on 1963. Vitamin B12 deficiency Family History Cardiovascular Past Medical History Heart Disease Medical History: Mother High Blood Pressure Medical History: Father Family Status Father: Living Mother: Living Paternal Grandfather: Paternal Grandmother: Maternal Grandfather: Maternal Grandmother: Brother 1: Living Sister 1: Living Gastrointestinal Past Medical Hx Gastrointestinal, Other Medical History: Father, tumor growth at stomach lining Neurological Past Medical History Migraines Medical History: Sibling Ocular Past Medical History Ocular, Other Medical History: Mother, retina surgery Family Status Reviewed With Patient: Review complete Procedure History resection of small intestine for ileitis with appendectomy x 2 surgeries at 03/1964. cholecystectomy at 03/14/1984. Hx prostate biopsy Colonoscopy * at 05/25/2010. resection of small intestines at 10/12/2012. 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 General: This is a well-developed and well-nourished individual in no acute distress. Mental status: Alert and oriented x3, conversant with appropriate mood and affect. NEUROLOGIC: Gait/Gross Motor: Gait is within normal limits. Balance: Grossly normal. Coordination: Grossly normal . Strength: Preserved in the bilateral upper extremities. Lower extremities are within normal limits as well. Sensation: Sensation is reported as normal throughout. Reflexes: Within normal limits. Dereck's sign is negative. MUSCULOSKELETAL: Spine: Shows some restriction in rotation more than any other range of motion. Forward flexion and extension seems to be within the functional limits. Inspection/Palpation: He has no major tenderness to the cervicothoracic muscles and no crepitance is noted. No pain over the spinous processes. Range of Motion: Range of motion is otherwise within normal limits with the exception of some slight deformity in the DIP (distal interphalangeal) joints of the hands and some Heberden's nodes are palpable. Joints: There are no obvious effusions, instability, or laxity in the major joints of the bilateral upper or lower limbs. He is not having any pain in the 4th or 5th digit and no triggering on today's exam. Lymph: Palpation of lymph nodes was unremarkable bilaterally. Skin: Inspection of the skin is negative for erythema, breakdown, or concerning lesions of the limbs, neck, and spine. Pulmonary: Breathing is unlabored and without use of accessory muscles. Lymphatics: No lymphadenopathy was appreciated in the affected extremity. Peripheral vascular: Upper limb: There is no obvious edema of the upper limbs, radial pulses are present. Lower limb: There is no obvious edema of the lower limbs, pedal pulses are intact. DATA: Pertinent labs, imaging studies and medical history were reviewed. Reviewed the cervical spine x-rays in depth with the patient. He has fairly preserved neural foramen. He does have degenerative changes but I do not think they are significantly worse than I would expect for someone of his age but there is some facet arthrosis and disc narrowing. Impression 1. DJD (degenerative joint disease), cervical (722.4) 2. Chronic Kidney Disease (CKD), Stage III (Moderate) (585.3) 3. Colitis, Ulcerative (556.9) Plan Mr. Kelsey is a 68-year-old with Crohn's and psoriasis who's trigger finger has improved since his injection. His neck pain has also improved. At this time, without any significant pain or radicular symptoms, I think we can manage him on a home exercise program. I provided exercises for him to start doing on a regular basis to help with his stiffness. I have provided my card. I discussed the information regarding his cervical x-rays which he had questions about. I encouraged him to follow up if there are any new symptoms. Please feel free to call me with any questions. Thank you very much for this consultation. Sincerely, Davi Solares MD CC: DO Oscar Ojeda MD TR: KEELY HILDA#: [id number] [Electronically Signed on 07.19.2013 12:53 PM] Davi Solares MD </br> 07/13/2013 [Electronically Signed on 07.19.2013 12:53 PM] Davi Solares MD [facility] Ambulatory Depart Summary Ambulatory Depart Summary [facility] [address] [place] [address], [address] [place] [address] PERSON INFORMATION Name NAJMA KELSEY Age 68 Years 1945 12:00 AM Sex Male Language Vincentian PCP Oscar Waller MD Marital Status Time Zone Visit Id Visit Reason EVAL FOR NECK DJD / XRAY [facility] Specialty Enc Type [facility] Med Service SPO-Specialist Phys Office Referred by [facility] Discharge Process Discharge Tracking Id Checkout Checkin Acuity Dispo Type Arrival 07/13/2013 11:06 AM Reg Status LOS Address: [address] [place] [id number] PHYS DOC NOTES PROVIDER INFORMATION VITALS INFORMATION Height: 5ft 11.0in Weight: 213.85 lbs (BMI: 29.8) Temp: 98.6 F Heart Rate: 87 Respiratory: 12 O2 Sat: BP: 140/70 LOCATION INFORMATION Arrival Nurse Unit Room Bed ORDERS INFORMATION MEDICAL INFORMATION Allergy Info: NKA HOME MEDICATIONS allopurinol 300 mg oral tablet 300 mg, Oral, Every 24 hours, 90 Day(s), 3 Refills amlodipine 10 mg oral tablet 10 mg, Oral, Daily, 90 Day(s), 3 Refills aspirin 81 mg oral tablet 81 mg, Oral, Every 24 hours Centrum Silver Men's oral tablet ferrous sulfate 325 mg (65 mg elemental iron) oral delayed release tablet 325 mg, Oral, Every 24 hours Fish Oil 1200 mg oral capsule 1,200 mg, Oral, 2 times a day Fish Oil oral capsule , 2000 mg daily Flomax 0.4 mg oral capsule 0.4 mg, Oral, Every 24 hours, 90 Day(s), 3 Refills folic acid 1 mg oral tablet 1 mg, Oral, Daily gemfibrozil 600 mg oral tablet 1,200 mg, Oral, Daily, 90 Day(s), 3 Refills glipiZIDE 5 mg oral tablet hydrochlorothiazide 12.5 mg oral capsule , TAKE ONE CAPSULE BY MOUTH EVERY DAY hydrochlorothiazide 25 mg oral tablet 25 mg, Oral, Every 24 hours, 90 Day(s), 3 Refills lisinopril 20 mg oral tablet 40 mg, Oral, Every 24 hours, 90 Day(s), 2 Refills methotrexate 2.5 mg oral tablet 10 mg, Oral, Every week, 90 Day(s) metoprolol tartrate 100 mg oral tablet 100 mg, Oral, 2 times a day, 90 Day(s), 3 Refills Restoril 15 mg oral capsule 15 mg, Oral, At bedtime, 90 Day(s), as needed, for sleep, 1 Refills tramadol 50 mg oral tablet 50 mg, Oral, Every 4 hours, as needed, for pain, 3 Refills Viagra 50 mg oral tablet 50 mg, Oral, Daily, 5 Refills, 1 hour before sexual activity Vitamin D3 1000 intl units oral capsule , 2 capsules every AM DISCHARGE INFORMATION Discharge Disposition: Discharge Location: PATIENT EDUCATION INFORMATION Instructions: Follow up: With: Address: When: No Follow Up Appointment Needed Comments: NAJMA IS TO FOLLOW UP NEEDED WITH DR. SOLARES (PRN). DIAGNOSIS 07/13/2013 [facility] CHEM12 eGFR () >60 mL/min >=60 2013 N Estimated GFR for an calculated using MDRD study equation. Result Verified by Discern Expert. [facility] CHEM12 Total Protein 7.9 gm/ dL 6.6 - 8.3 06/27/2013 N [facility] -RBC Morphology RBC Morph Normal Normal 06/27/2013 N Discern Expert [facility] -Auto Diff Abs Eos .2 x10^3/ uL .0 - .4 06/27/2013 N [facility] CBC with Diff Hct 39.8 % 40.0 - 50.0 06/27/2013 LOW [facility] DX Hand Rt Complete DX Hand Rt Complete 06/25/2013 [facility] DX Hand Lt Complete DX Hand Lt Complete NAJMA KELSEY 3 VIEW BILATERAL HAND HAND DATE: 06/25/2013 INDICATION: Chronic bilateral hand pain when grasping objects, right worst than left. COMPARISON: None. FINDINGS: There is no displaced fracture or dislocation of the bilateral hands. There is mild degenerative change of the interphalangeal joints, worst at the distal left 2nd and right 5th joint spaces. There is mild to moderate degenerative change of the right 1st carpal metacarpal joint. There is no significant periarticular osteopenia. The metacarpal phalangeal joints are grossly preserved. IMPRESSION: Osteoarthritic changes of the bilateral hands in the right greater than left distal interphalangeal joints. No acute osseous abnormality. Final Report Dictated By: Sreekanth Perkins MD Signed By: Sreekanth Perkins MD Signed Dt/tm: 06/26/2013 06:57 Transcribed By: LAW Transcribed Dt/tm: 06/25/2013 16:54</br> Clinical History DX Hand Lt Complete: Current History chronic bilateral hand pain, pain when grasping objects, right worse then left Previous History/Surgery hx of left 5th digit fx several years ago DX Hand Rt Complete: Current History chronic bilateral hand pain, pain when grasping objects, right worse then left Previous History/Surgery right 4th digit trgger finger 06/25/2013 Final Report Dictated By: Sreekanth Perkins MD Signed By: Sreekanth Perkins MD Signed Dt/tm: 06/26/2013 06:57 Transcribed By: LAW Transcribed Dt/tm: 06/25/2013 16:54 [facility] DX Cervical Spine Complete DX Cervical Spine Complete NAJMA KELSEY COMPLETE CERVICAL SPINE SERIES DATE: June 25, 2013 INDICATION: No known injury, right-sided neck pain. COMPARISON: None. FINDINGS: There is multilevel degenerative change of the cervical spine without evidence of displaced fracture or dislocation. There is multilevel facet arthrosis. The prevertebral soft tissues are unremarkable. The lateral masses of the C1 are well aligned. IMPRESSION: No acute fracture or alignment abnormality with multilevel degenerative change. Final Report Dictated By: Sreekanth Perkins MD Signed By: Sreekanth Perkins MD Signed Dt/tm: 06/26/2013 06:49 Transcribed By: AC Transcribed Dt/tm: 06/25/2013 17:08</br> Clinical History Current History NKI, right sided neck pain x 1 week Previous History/Surgery none to c-spine 06/25/2013 Final Report Dictated By: Sreekanth Perkins MD Signed By: Sreekanth Perkins MD Signed Dt/tm: 06/26/2013 06:49 Transcribed By: AC Transcribed Dt/tm: 06/25/2013 17:08 [facility] Ambulatory Depart Summary Ambulatory Depart Summary [facility] [address] [address] [address] [place] [address] PERSON INFORMATION Name NAJMA KELSEY Age 68 Years 1945 12:00 AM Sex Male Language Vincentian PCP Oscar Waller MD Marital Status Time Zone N [id number] Visit Id Visit Reason JOINT PAIN-TRIGGER FINGER-DR WALLER Specialty Enc Type [facility] Med Service OUTPT-Outpatient/Hospital Referred by [facility] Clinic Discharge Process Discharge Tracking Id Checkout Checkin Acuity Dispo Type Arrival 06/25/2013 1:36 PM Reg Status LOS Address: [address] [facility] [address] PHYS DOC NOTES PROVIDER INFORMATION VITALS INFORMATION Height: 5ft 11.0in Weight: 217.38 lbs (BMI: 30.3) Temp: 98.1 F Heart Rate: 60 Respiratory: 18 O2 Sat: BP: 180/90 LOCATION INFORMATION Arrival Nurse Unit Room Bed ORDERS INFORMATION Start Time Order Type Status Stop Time Provider 06/25/2013 2:56 PM Office Visit Level 4 New - [id number] Evaluation and Management Completed 06/25/2013 2:56 PM Danelle Henry DO FACR 06/25/2013 2:57 PM Hosp Outpatient Clinic Visit Evaluation and Management Completed 06/25/2013 2:57 PM Danelle Henry DO FACR MEDICAL INFORMATION Allergy Info: NKA HOME MEDICATIONS allopurinol 300 mg oral tablet 300 mg, Oral, Every 24 hours, 90 Day(s), 3 Refills amlodipine 10 mg oral tablet 10 mg, Oral, Daily, 90 Day(s), 3 Refills aspirin 81 mg oral tablet 81 mg, Oral, Every 24 hours Centrum Silver Men's oral tablet ferrous sulfate 325 mg (65 mg elemental iron) oral delayed release tablet 325 mg, Oral, Every 24 hours Fish Oil 1200 mg oral capsule 1,200 mg, Oral, 2 times a day Fish Oil oral capsule , 2000 mg daily Flomax 0.4 mg oral capsule 0.4 mg, Oral, Every 24 hours, 90 Day(s), 3 Refills folic acid 1 mg oral tablet 1 mg, Oral, Daily gemfibrozil 600 mg oral tablet 1,200 mg, Oral, Daily, 90 Day(s), 3 Refills glipiZIDE 5 mg oral tablet hydrochlorothiazide 12.5 mg oral capsule , TAKE ONE CAPSULE BY MOUTH EVERY DAY lisinopril 20 mg oral tablet 40 mg, Oral, Every 24 hours, 90 Day(s), 2 Refills methotrexate 5 mg oral tablet 5 mg, Oral, Every week, On Only metoprolol tartrate 100 mg oral tablet 100 mg, Oral, 2 times a day, 90 Day(s), 3 Refills Restoril 15 mg oral capsule 15 mg, Oral, At bedtime, 90 Day(s), as needed, for sleep, 1 Refills Viagra 50 mg oral tablet 50 mg, Oral, Daily, 5 Refills, 1 hour before sexual activity Vitamin D3 1000 intl units oral capsule , 2 capsules every AM DISCHARGE INFORMATION Discharge Disposition: Discharge Location: PATIENT EDUCATION INFORMATION Instructions: Follow up: DIAGNOSIS Chronic neck pain; Psoriasis; Right trigger finger 06/25/2013 [facility] Amb Nurs Intake Event Amb Nurs Intake Event 2013 [facility] Office/Clinic Notes Office/Clinic Notes [facility] [address] [facility], [address] [address] [address] [place] [address] [facility] PATIENT: NAJMA KELSEY MR #: [id number] : 1945 DATE SEEN: 06/25/2013 Chief Complaint Patient is here today for joint pain and trigger finger in the right hand that started last summer. Stated that he had surgery last summer that has caused some major health concerns and is on methotrexate. Additional Information: Pharmacy [facility] script History of Present Illness In the past week, he reports the following... He states his pain level is at a 5/10 because of his illness (0=No pain, 5= Moderate pain, 10=Severe pain). His acceptable level of pain is 2/10 (0=No pain, 5=Moderate Pain, 10=Severe Pain ). His level of fatigue is rated 6/10, with 0=No Problem and 10=Major Problem. His level depression is rated 4/10 with 0=No Depression and 10=Severe Depression. He rates his ability to rest at night at 8/10 with 0=Sleep is not problem and 10 =Sleep is a major problem. He rates his anxiety at 1/10 with 0=Anxiety is no problem and 10=Anxiety is a major problem. He reports a level of 0/10 regarding trouble with his stomach (ie nausea, heartburn, bloating, etc.). Considering all the ways that his illness affects him, he states that he has felt 2/10 with 0=Very well and 10=Very poor. At this visit, he rates his satisfaction with his health at 6/10 with 0=Very satisfied and 10=Very dissatisfied. He rates his ability to purchase his current medications at 0/10 with 0=No difficulty, 5=Some difficulty, and 10=Extreme difficulty. FN (range 0 - 10)=0.33 PS (range 0 - 10)=4.4 RAPID3 (range 0 - 10)=2.44 This 68-year-old male sent over by Dr. Oscar Waller for a trigger finger on the right fourth digit of his hand. The patient gets triggering off and on and was sent over for this. Actually he worked with me and the medical student; initially told the medical student the reason he was here was for me to manage his methotrexate that he takes for his psoriasis. The patient has had psoriasis for multiple years and also has a remote history of Crohn's disease. Has not really had any joint pain other than triggering of his hands and DIP nodularities that have popped up. The patient states he is having some difficulty coordinating blood work and refills of his methotrexate with his log tumbler, so initially he told my med student that he would like to have me manage this completely. When I went in, he told me that he was going to work with his log tumbler; so somewhat unclear if he wants me to manage his methotrexate or if he wants his log tumbler to. The patient does have any joint swelling, just mostly triggering that comes and goes. It eventually does go away with time. 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 The patient is currently taking methotrexate 2 2.5 mg pills twice a day. The patient takes them on Fridays and takes a folic acid every day. The patient has previously been on Enbrel but when his insurance changed, could no longer afford it and this is why he stopped taking it. He liked Enbrel for his skin though methotrexate is currently working. He is up to date on blood work. Most recent blood work was within normal limits. Creatinine at baseline sits at 1.7 , previously has worked with a south asian history professor at [facility]; whose note I reviewed through their computer system; also notes that creatinines at baseline is around 1.7. The patient has no other complaints today other than the triggering of his finger. He does mention as I am leaving, that he has some neck pain that when he turns his head a certain way, shoots down his back and around his rib. This is new for him. He has never had an imaging. His past medical history is positive for Crohn's at age 18, status post bowel resection from adhesions last summer; ended up with renal failure and dialysis for a period of time. Still continues to follow with nephrology but has been told not to take NSAIDs (nonsteroidal anti-inflammatory drugs). Past surgical history again is positive for bowel resection. Pain Assessment Cognitive Status: Independent, decisions consistent/reasonable Intensity: 3 Location: Other: neck radiating down right side of back, joints and in bilateral hands Scale Type: 0-10 Pain scale Time Pattern: Chronic Review of Systems Constitutional Symptoms Recent Weight Change: Yes Fatigue/Weakness: Yes Ears/Nose/Throat Hearing Loss or Ringing: No Chronic Sinus Problems: No Oral Ulcers: No Swollen Glands: No Dry Mouth: Yes Eyes Dry Eyes: No Red Eyes: No Cardiovascular Heart Trouble: No Palpitation: No Respiratory Chronic or Frequent Coughs: No Shortness Of Breath: No Asthma: No Chest Pain With Deep Breath: No Gastrointestinal Heartburn: No Ulcers: No Genitourinary Frequent Urination: Yes Blood In Urine: No Musculoskeletal Morning Stiffness Greater Than One Hour: No Swollen Joints: Yes Painful Joints: Yes Warm Joints: No Muscle Weakness: Yes Muscle Pain: Yes Skin Facial Rashes: No Hair Loss: No Unusual Rashes Related To Sunlight: No Color Changes Of Hands: No Neurological Seizures: No Frequent Recurring Headaches: No Stroke: No Psychiatric Nervousness: No Depression: No Endocrine Diabetes: Yes Heat or Cold Intolerance: No Hematological/Lymphatic History Of Anemia: No History Of Low White Count: No History Of Low Platelet Count: No History Of Blood Clots: No Miscarriages: No Immunological/Allergic History Of Abnormal Arthritis Blood Tests: No History Of A Positive ROSSI Blood Test: No Allergies NKA Current Medications allopurinol 300 mg oral tablet (allopurinol), 300 mg, Every 24 hours amlodipine 10 mg oral tablet (amlodipine), 10 mg, Daily aspirin 81 mg oral tablet (aspirin), 81 mg, Every 24 hours Centrum Silver Men's oral tablet (multivitamin with minerals) ferrous sulfate 325 mg (65 mg elemental iron) oral delayed release tablet ( ferrous sulfate), 325 mg, Every 24 hours Fish Oil 1200 mg oral capsule (omega-3 polyunsaturated fatty acids), 1,200 mg, 2 times a day Flomax 0.4 mg oral capsule (tamsulosin), 0.4 mg, Every 24 hours folic acid 1 mg oral tablet (folic acid), 1 mg, Daily gemfibrozil 600 mg oral tablet (gemfibrozil), 1,200 mg, Daily glipiZIDE 5 mg oral tablet (glipizide) hydrochlorothiazide 12.5 mg oral capsule (hydrochlorothiazide) lisinopril 20 mg oral tablet (lisinopril), 40 mg, Every 24 hours methotrexate 5 mg oral tablet (methotrexate), 5 mg, Every week metoprolol tartrate 100 mg oral tablet (metoprolol), 100 mg, 2 times a day Restoril 15 mg oral capsule (temazepam), 15 mg, PRN, At bedtime, 90 Day(s) Viagra 50 mg oral tablet (sildenafil), 50 mg, Daily Vitamin D3 1000 intl units oral capsule (cholecalciferol), Comment: 2 capsules every AM Problems and Past Medical History Active Chronic gout: Onset on 1963. Chronic Kidney Disease (CKD), Stage III (Moderate) Colitis, Ulcerative: Onset on 1963. Diabetes mellitus type II: Onset on 2006. HDL deficiency: Onset on 1997. Psoriasis: Onset on 1963. Vitamin B12 deficiency Family History Cardiovascular Past Medical History Heart Disease Medical History: Mother High Blood Pressure Medical History: Father Family Status Father: Living Mother: Living Paternal Grandfather: Paternal Grandmother: Maternal Grandfather: Maternal Grandmother: Brother 1: Living Sister 1: Living Gastrointestinal Past Medical Hx Gastrointestinal, Other Medical History: Father, tumor growth at stomach lining Neurological Past Medical History Migraines Medical History: Sibling Ocular Past Medical History Ocular, Other Medical History: Mother, retina surgery Family Status Reviewed With Patient: Review complete Procedure History resection of small instestine for ileitis with appendectomy x 2 surgeries at 03/1964. cholestectomy at 03/14/1984. Hx prostate biopsy Colonoscopy * at 05/25/2010. resection of small intestines at 10/12/2012. Social History Alcohol Use: Denies Caffeine Use: Current Caffeine Type: Soda Caffeine Frequency: Daily Current Tobacco Usage: Former Exposure to Tobacco Smoke: Patient smokes Recreational Drug Use: Denies Smoking Status: Former smoker Tobacco Type: Cigarettes Physical Examination TEMP BP Pulse RR MAP O2 Sat 36.7 180/90 60 18 120 Weight Height BMI BSA 98.6 kg (217.38 lbs) 180.3 cm 30.3 kg/m2 2.2222 m2 General: Alert and oriented x 3. No acute distress. Psychiatric: Oriented to time and place. Appropriate mood and affect. Skin: The patient has psoriatic plaques on his anterior knees and some scattered areas of psoriasis on his legs. Eyes: Clear. Mouth: No oral ulcers. Lymphatics: No abnormal lymph nodes. Cardiovascular: S1 and S2, regular rate and rhythm with no murmurs. Respiratory: Bilaterally clear to auscultation with no added sounds. Gastrointestinal: Abdomen is soft. No focal tenderness. Liver and spleen nonpalpable. Musculoskeletal: The patient does have thickened skin on his hands. Musculoskeletal exam is somewhat difficult due to the thickening overall of the appearance of his hands, has active triggering on the fourth PIP on the right. Has Heberden's nodes developing on bilateral DIPs, both left and right. Neurologic: Normal muscle strength 5/5 upper and lower limbs bilaterally. Extremities: No clubbing, cyanosis or edema. Impression 1. Psoriasis (696.1) 2. Right trigger finger (727.03) 3. Chronic neck pain (723.1) This 68-year-old male sent for a trigger finger on his right fourth finger, also with psoriasis and some question of whether or not he wants me to manage his methotrexate. Also complaining of neck pain. Plan 1. Psoriasis. -Well managed at this time by Dr. Anam Borges. -I defer his treatment to Dr. Borges unless the patient is having difficulty and wants a second opinion. We could always see him for another opinion or if he ends up having psoriatic arthritis, then I am happy to manage his methotrexate. -Currently on methotrexate 10 mg a week. -We discussed these could all be taken at one time. -If not on folic acid, certainly needs to be on folic acid. Blood testing per Dr. Borges. 2. Trigger finger on the right fourth digit. -The patient opted to have an injection. -After discussing the risks and benefits, including benefit of diagnostics and pain control, as well as risks of bleeding, infection and pain, the patient was verbally consented for procedure. Time out was completed, the site was verified by the patient and marked for accuracy. I injected the fourth right PIP of the patient with 8 mg of Kenalog. Patient experienced no complications and no bleeding. The patient tolerated the procedure well. 3. Neck pain, will go ahead and get an x-ray. The patient is to return to clinic in 4-6 weeks. TR: [id number] HILDA#: [id number] [Electronically Signed on 06.29.2013 03:12 PM] Danelle Henry, FACR </br> 06/25/2013 [Electronically Signed on 06.29.2013 03:12 PM] Danelle Henry, DO FACR [facility] CHEM12 eGFR () 49 mL/min >=60 06/13/2013 LOW Estimated GFR for an calculated using MDRD study equation. Verified by Discern Expert. [facility] CHEM12 Corrected/Adjusted CA 9.6 mg/dL 8.5 - 10.1 2013 N [facility] -Auto Diff Abs Baso .040 thous/uL .000 - .200 2013 N [facility] -RBC Morphology RBC Morph Normal Normal 06/13/2013 N [facility] CBC with Diff MCHC 33.7 gm/ dL 31.0 - 36.5 06/13/2013 N [facility] A1C eAverage Glu 180 05/17/2013 NA Estimated average glucose has a linear relationship with Hgb A1C and is intended to simplify the discussion of glycemic control with patients. [facility] CHEM12 eGFR () 60 mL/min >=60 05/17/2013 N Estimated GFR for an calculated using MDRD study equation. Verified by Discern Expert. [facility] CHEM12 eGFR 50 mL/min >=60 05/17/2013 LOW Estimated eGFR Non calculated using MDRD study equation Verified by Discern Expert. The MDRD GFR formula is valid only for adults between 18 and 85 years of age. [facility] CHEM12 Hemolysis Index 1 - <=3 05/17/2013 N [facility] -RBC Morphology RBC Morph Normal Normal 05/17/2013 N Discern Expert [facility] -Auto Diff Abs [place] .4 x10^3/ uL .0 - .9 05/17/2013 N [facility] CBC with Diff Instr WBC 6.15 x10^3/uL 05/17/2013 NA [facility] CHEM12 eGFR () 55 mL/min >=60 05/09/2013 LOW Estimated GFR for an calculated using MDRD study equation. Verified by Discern Expert. [facility] CHEM12 eGFR 46 mL/min >=60 05/09/2013 LOW Estimated eGFR Non calculated using MDRD study equation Verified by Discern Expert. The MDRD GFR formula is valid only for adults between 18 and 85 years of age. [facility] CHEM12 Icterus Index 1 - <=3 05/09/2013 N [facility] -RBC Morphology RBC Morph Normal Normal 05/09/2013 N Discern Expert [facility] -Auto Diff Abs [place] .7 x10^3/ uL .0 - .9 05/09/2013 N [facility] CBC with Diff Hgb 14.5 gm/dL 13.0 - 17.0 05/09/2013 N [facility] CHEM12 eGFR 43 mL/min >=60 04/27/2013 LOW Estimated eGFR Non calculated using MDRD study equation Verified by Discern Expert. The MDRD GFR formula is valid only for adults between 18 and 85 years of age. [facility] CHEM12 ALT/GPT 42 U/L 30 - 65 04/27/2013 N [facility] -Auto Diff Abs Lymph 4.7 x10^ 3/uL .8 - 4.3 04/27/2013 HI [facility] -RBC Morphology RBC Morph Normal Normal 04/27/2013 N [facility] CBC with Diff Hgb 15.1 gm/dL 13.0 - 17.0 04/27/2013 N [facility] Ambulatory Depart Summary Ambulatory Depart Summary [address] [id number] PERSON INFORMATION Name NAJMA KELSEY Age 67 Years 1945 12:00 AM Sex Male Language Vincentian PCP Oscar Waller MD Marital Status Time Zone Visit Id Visit Reason Routine -MEDICARE Specialty Enc Type [facility] Med Service OUTPT-Outpatient/Hospital Referred by [facility] Clinic Discharge Process Discharge Tracking Id Checkout Checkin Acuity Dispo Type Arrival 04/26/2013 4:13 PM Reg Status LOS Address: [address] [place] [id number] PHYS DOC NOTES PROVIDER INFORMATION VITALS INFORMATION Height: 5ft 11.0in Weight: 193.12 lbs LOCATION INFORMATION Arrival Nurse Unit Room Bed ORDERS INFORMATION Start Time Order Type Status Stop Time Provider 04/26/2013 4:15 PM CBC with Diff Laboratory Ordered 04/26/2013 4:15 PM Oscar Waller MD 04/26/2013 4:15 PM Chemistry Profile Laboratory Ordered 04/26/2013 4:15 PM Oscar Waller MD 04/26/2013 4:35 PM CBC with Diff Laboratory Discontinued 04/26/2013 4:36 PM Oscar Waller MD MEDICAL INFORMATION Allergy Info: NKA HOME MEDICATIONS allopurinol 300 mg oral tablet 300 mg, Oral, Every 24 hours, 90 Day(s), 3 Refills Alpha Lipoic , 200mg daily amlodipine 10 mg oral tablet 10 mg, Oral, Daily, 90 Day(s), 3 Refills aspirin 81 mg oral tablet 81 mg, Oral, Every 24 hours chromium picolinate 500 mcg, Oral, DAILY, 2 tabs daily Fish Oil oral capsule , 2000 mg daily Flomax 0.4 mg oral capsule 0.4 mg, Oral, Every 24 hours, 90 Day(s), 3 Refills folic acid 0.8 mg oral tablet , 1 tab daily Garlic oral capsule , 1000mg 1 tab daily gemfibrozil 600 mg oral tablet 600 mg, Oral, Daily, 90 Day(s), 3 Refills ginseng , 400mg daily glucosamine 500 mg, Oral, Every 24 hours, 2 tab daily hydrochlorothiazide 12.5 mg oral capsule , TAKE ONE CAPSULE BY MOUTH EVERY DAY lisinopril 20 mg oral tablet 40 mg, Oral, Every 24 hours, 90 Day(s), 2 Refills magnesium oxide , Oral, 400 mg with zinc metformin 500 mg oral tablet, extended release 1,000 mg, Oral, At bedtime, 90 Day(s), 3 Refills metoprolol tartrate 100 mg oral tablet 100 mg, Oral, 2 times a day, 90 Day(s), 3 Refills Milk Thistle oral tablet , 1000mg daily MSM , 1000 mg daily Pentasa 1 gm, Oral, 4 times a day potassium gluconate , 99 mg 4 tabs daily Restoril 15 mg oral capsule 15 mg, Oral, At bedtime, 90 Day(s), as needed, for sleep, 1 Refills [place] , 160 mg daily selenium 50 mcg oral tablet Viagra 50 mg oral tablet 50 mg, Oral, Daily, 5 Refills, 1 hour before sexual activity vitamin A 8000 units oral capsule , 1 tab daily Vitamin B Complex oral capsule 1 Cap, Oral, Every 24 hours, 2 tabs daily Vitamin B12 1000 mcg/mL injectable solution 1,000 mcg, Intramuscular, Monthly Vitamin C 1000 mg oral tablet 1 Tab, Oral, Daily Vitamin D3 1000 intl units oral capsule , 2 capsules every AM vitamin E 400 intl units oral capsule 400 IU, Oral, Every 24 hours zinc gluconate 50 mg oral tablet , 1 tab daily DISCHARGE INFORMATION Discharge Disposition: Discharge Location: PATIENT EDUCATION INFORMATION Instructions: Follow up: With: Address: When: [place] [address] Business (1) 02/13/2014 08:00:00 Comments: With: Address: When: [place] [id number] Business (1) 11/14/2013 08:00:00 Comments: With: Address: When: [place] [id number] Business (1) In 111 days 08/15/2013 Comments: With: Address: When: [place] [id number] Business (1) 07/18/2013 08:00:00 Comments: With: Address: When: [place] [id number] Business (1) 06/13/2013 08:00:00 Comments: With: Address: When: [place] [id number] Business (1) 05/17/2013 08:00:00 Comments: With: Address: When: [place] [id number] Business (1) 05/09/2013 08:00:00 Comments: With: Address: When: [place] [address] Business (1) 05/02/2013 08:00:00 Comments: With: Address: When: [place] [address] [email or web address] (1) 04/20/2013 08:00:00 Comments: DIAGNOSIS manager intermediate use of drug 04/26/2013 [facility] CHEM12 eGFR () >60 mL/min >=60 2012 N Estimated GFR for an calculated using MDRD study equation. Result Verified by Discern Expert. [facility] CHEM12 Glucose Level 115 mg/ dL 60 - 99 11/24/2012 HI [facility] ALBSC UA Microalbumin 50 0 - 20 11/24/2012 ABN [facility] Outside Hospitilization Record Grid Outside Hospitilization Record Grid 10/31/2012 [facility] CBC with Diff Instr WBC 10.37 x10^3/uL 10/26/2012 NA [facility] DIFF Monocyte. 6 % 2 - 11 10/26/2012 N [facility] Manual Differential Morphology [place] 1+ 10/26/2012 ABN [facility] -UA Dipstick UA Leuk Est Trace Negative 10/26/2012 ABN [facility] UAMICRO UA WBC Cast None Seen 10/26/2012 N [facility] C Urine C Urine PATIENT: NAJMA KELSEY PHYSICIAN: Oscar Waller MD PROC: Urine Culture SOURCE: U Midstream SITE: SOURCE: [phone] FINAL REPORT Final Report Verified:10/28/12 06:53 No growth ORDER COMMENTS Ordered by Discern Expert 10/26/2012 [facility] MALB/CR U Microalbumin 17.2 mg/dL - <=1.8 10/26/2012 HI [facility] CHEM12 eGFR 38 mL/min >=60 10/26/2012 LOW Estimated eGFR Non calculated using MDRD study equation Verified by Discern Expert. The MDRD GFR formula is valid only for adults between 18 and 85 years of age. [facility] CHEM12 Corrected/Adjusted CA 9.2 mg/dL 8.5 - 10.1 2012 N [facility] TSH TSH 2.280 uIU/mL 0.358 - 3.740 10/26/2012 N [facility] VIT B12 Vit B12 Level 752 pg/ mL 180 - 914 10/05/2012 N [facility] CHEM12 eGFR 37 mL/min >=60 10/05/2012 LOW Estimated eGFR Non calculated using MDRD study equation Verified by Discern Expert. The MDRD GFR formula is valid only for adults between 18 and 85 years of age. [facility] CHEM12 BUN 35 mg/dL 10 - 20 10/05/2012 [place] [facility] -RBC Morphology RBC Morph Normal Normal 10/05/2012 N [facility] -Auto Diff Abs Neutro 4.5 x10 ^3/uL 2.0 - 8.1 10/05/2012 N [facility] CBC with Diff Hct 40.4 % 40.0 - 50.0 10/05/2012 N [facility] Office/Clinic Notes Office/Clinic Notes Patient: NAJMA KELSEY Age: 67 years Sex: Male : 1945 Associated Diagnoses: B12 vitamin deficiency; Colitis, Ulcerative; Diabetes mellitus type II Author: Oscar Waller MD Visit Information Visit type: New symptom. Accompanied by: No one. Source of history: Self. Chief Complaint Patient presents with a follow up on kindeny failure. Interval History Najma comes in after being hospitalized for acute renal failure precipitated by a long standing colon blockage. He says that he ate a large salad September 13 and then 3 days was totally obstructed and on the way to the hospital. For the course please refer to scanned documents where he had an extended 11 day stay where it was decided to undergo laparotomy to remove precancerous lesion, resect the colonic resection due to Crohn's and potentially repair or address his ventral hernia. He comes in today for follow up after and has zero energy and is brought in by his son because he can't Acute Renal Failure The course is progressing as expected. There were disease related encounters including in the hospital 3 weeks ago.. Associated symptoms characterized by no abdominal pain, nausea, vomiting, decreased urine output, urinary frequency, urinary hesitancy, urinary incontinence or urinary urgency. Review of Systems Constitutional: Negative. Respiratory: Negative. Cardiovascular: Negative. Gastrointestinal: Negative. Genitourinary: Negative. Neurologic: Negative. Health Status Allergies: . Allergic Reactions (Selected) NKA Current medications: (Selected). Prescriptions Ordered Viagra 50 mg oral tablet: 50 mg, 1 Tab, PO, daily, 1 hour before sexual activity , 10 Tab Vitamin B12 1000 mcg/mL injectable solution: 1,000 mcg, IM, QMONTH, 10 mL allopurinol 300 mg oral tablet: 1 Tab, PO, Q24H, 90 Tab gemfibrozil 600 mg oral tablet: 1 Tab, PO, daily, 90 Tab metformin 500 mg oral tablet, extended release: 2 Tab, PO, AT BEDTIME, 180 Tab Documented Medications Documented Alpha Lipoic: Fish Oil oral capsule: Flomax 0.4 mg oral capsule: 1 Cap, PO, Q24H Garlic oral capsule: MSM: Milk Thistle oral tablet: Pentasa: 1 gm, PO, QID [place]: Vitamin B Complex oral capsule: 1 Cap, PO, Q24H Vitamin C 1000 mg oral tablet: 1 Tab, PO, daily, 30 Tab Vitamin D3 1000 intl units oral capsule: amlodipine 5 mg oral tablet: 1 Tab, PO, daily, 30 Tab aspirin 81 mg oral tablet: 1 Tab, PO, Q24H chromium picolinate: 500 mcg, PO, QD, Tab folic acid 0.8 mg oral tablet: ginseng: glucosamine: 500 mg, PO, Q24H lisinopril 10 mg oral tablet: 1 Tab, PO, daily, 90 Tab magnesium oxide: PO, Tab metoprolol tartrate 25 mg oral tablet: 0.5 Tab, PO, BID, 90 Tab potassium gluconate: selenium 50 mcg oral tablet: vitamin A 8000 units oral capsule: vitamin E 400 intl units oral capsule: 400 IU, 1 Cap, PO, Q24H, Cap zinc gluconate 50 mg oral tablet: Problem list: . Medical Chronic gout / 274.02 / Confirmed Colitis, Ulcerative / 556.9 / Confirmed Diabetes mellitus type II / 250.00 / Confirmed HDL deficiency / 272.5 / Confirmed Psoriasis / 696.1 / Confirmed Vitamin B12 deficiency / 266.2 / Confirmed Histories Past Medical History: Past medical history in EMR reviewed with patient today.. Family History: Family history in EMR reviewed with patient today.. Procedure History: Procedure history was reviewed. Physical Examination VS/Measurements VITAL SIGNS 10/05/2012 10:13 Temperature Tympanic 36.0 DegC LOW Peripheral Pulse Rate 70 bpm Respiratory Rate 18 br/min Systolic Blood Pressure 130 mmHg Diastolic Blood Pressure 80 mmHg Mean Arterial Pressure. 96.67 mmHg Blood Pressure Type Manual Blood Pressure Location Left arm , Measurements from flowsheet : Measurements 10/05/2012 10:13 Height 180.3 cm Weight 87.6 kg Scale Balance BSA 2.0946 m2 Body Mass Index 26.9 kg/m2 General: Alert and oriented, No acute distress. Ambulation status: With steady gait. Appearance: Well nourished. Behavior: Cooperative. Hydration: Within normal limits. Skin: Within normal limits. HENT: Normal and noncontributary. Respiratory: Lungs are clear to auscultation, Respirations are non-labored, Breath sounds are equal, No chest wall tenderness. Cardiovascular: Normal rate, Regular rhythm, No murmur, Normal peripheral perfusion, No edema. Gastrointestinal: Soft, Normal bowel sounds. Abdomen: significantly distended but nontender as noted. Lack of rectus abdominal muscle thickness or strength with large ventral hernia-like appearance. Neurologic: Alert, Oriented, Normal sensory, Normal motor function, No focal defects, Cranial Nerves II-XII are grossly intact. Psychiatric: Cooperative, Appropriate mood & affect, Normal judgment, No Abnormal / Psychotic thoughts. Mood and affect: Calm. Behavior: Relaxed. Review / Management Differential diagnosis: Will obtain CBC, CMP and B12 as well as give him an injection today. Will schedule for surgical consult to remove mass and see whether anything can be done for his ventral hernai. Impression and Plan Diagnosis B12 vitamin deficiency (ICD9 266.2). Colitis, Ulcerative (ICD9 556.9). Diabetes mellitus type II (ICD9 250.00). Plan PowerOrders. Laboratory: B12 Level (Ordered): 10/05/2012 11:01, Routine collect, Colitis, Ulcerative | Diabetes mellitus type II | B12 vitamin deficiency, [facility] CMP (Comp Metabolic Panel) (Ordered): 10/05/2012 11:01, Routine collect, Colitis , Ulcerative | Diabetes mellitus type II | B12 vitamin deficiency, [facility] CBC with Diff (Ordered): 10/05/2012 11:00, Routine collect, Colitis, Ulcerative | Diabetes mellitus type II | B12 vitamin deficiency, [facility] Pharmacy: cyanocobalamin (Ordered): 1,000 mcg, IM, X 1 DOSE Clinic Charge: Vitamin B-12 cyanocobalamin, 1,000 mcg -Clinic (Ordered): 10/05/2012 11:02 Admin SubQ or IM Injection -Clinic (Ordered): 10/05/2012 11:02 Clinic Careset: Vitamin B-12 cyanocobalamin 1,000 mcg Careset -Clinic (Ordered) Counseled: Patient, Family, Regarding diagnosis, Regarding treatment. Patient Instructions: Follow up after consults are returned. [Electronically Signed on 10.05.2012 10:18 PM] Oscar Waller MD </br> 10/05/2012 [Electronically Signed on 10.05.2012 10:18 PM] Oscar Waller MD [facility] SMEG-Healthcare Goals 1 SMEG-Healthcare Goals 1 No [id number] No CD:[id number] No CD:[id number] No CD:[id number] No CD:[id number] No CD:[id number] No CD:[id number] No CD:[id number] No CD:[id number] No 10/05/2012 [facility] Level of Functioning Grid-Clinic Level of Functioning Grid-Clinic 10/05/2012 [facility] Office/Clinic Notes Office/Clinic Notes Patient: NAJMA KELSEY Age: 67 years Sex: Male : 1945 Associated Diagnoses: None Author: Jennifer Gates Visit Information Visit type: New symptom. Accompanied by: No one. Source of history: Self. Chief Complaint Patient presents with a follow up on kindeny failure. Interval History Acute Renal Failure The course is progressing as expected. There were disease related encounters including in the hospital 3 weeks ago.. Associated symptoms characterized by no abdominal pain, nausea, vomiting, decreased urine output, urinary frequency, urinary hesitancy, urinary incontinence or urinary urgency. Review of Systems Constitutional: Negative. Respiratory: Negative. Cardiovascular: Negative. Gastrointestinal: Negative. Genitourinary: Negative. Neurologic: Negative. Health Status Allergies: . Allergic Reactions (Selected) NKA Current medications: (Selected). Prescriptions Ordered Viagra 50 mg oral tablet: 50 mg, 1 Tab, PO, daily, 1 hour before sexual activity , 10 Tab Vitamin B12 1000 mcg/mL injectable solution: 1,000 mcg, IM, QMONTH, 10 mL allopurinol 300 mg oral tablet: 1 Tab, PO, Q24H, 90 Tab gemfibrozil 600 mg oral tablet: 1 Tab, PO, daily, 90 Tab metformin 500 mg oral tablet, extended release: 2 Tab, PO, AT BEDTIME, 180 Tab Documented Medications Ordered Alpha Lipoic: Fish Oil oral capsule: Flomax 0.4 mg oral capsule: 1 Cap, PO, Q24H Garlic oral capsule: MSM: Milk Thistle oral tablet: Pentasa: 1 gm, PO, QID [place]: Vitamin B Complex oral capsule: 1 Cap, PO, Q24H Vitamin C 1000 mg oral tablet: 1 Tab, PO, daily, 30 Tab Vitamin D3 1000 intl units oral capsule: amlodipine 5 mg oral tablet: 1 Tab, PO, daily, 30 Tab aspirin 81 mg oral tablet: 1 Tab, PO, Q24H chromium picolinate: 500 mcg, PO, QD, Tab folic acid 0.8 mg oral tablet: ginseng: glucosamine: 500 mg, PO, Q24H lisinopril 10 mg oral tablet: 1 Tab, PO, daily, 90 Tab magnesium oxide: PO, Tab metoprolol tartrate 25 mg oral tablet: 0.5 Tab, PO, BID, 90 Tab potassium gluconate: selenium 50 mcg oral tablet: vitamin A 8000 units oral capsule: vitamin E 400 intl units oral capsule: 400 IU, 1 Cap, PO, Q24H, Cap zinc gluconate 50 mg oral tablet: Problem list: . 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 No active or resolved past medical history items have been selected or recorded. Family History: . Cardiovascular Past Medical History Heart Disease Medical History: Mother High Blood Pressure Medical History: Father Family Status Father: Living Sister 1: Living Mother: Living Paternal Grandfather: Paternal Grandmother: Maternal Grandfather: Maternal Grandmother: Brother 1: Living Gastrointestinal Past Medical Hx Gastrointestinal, Other Medical History: Father, tumor growth at stomach lining Neurological Past Medical History Migraines Medical History: Sibling Ocular Past Medical History Ocular, Other Medical History: Mother, retina surgery Family Status Reviewed With Patient: Review complete Procedure History: . Colonoscopy * (21455) in 2010 at 65 Years. cholestectomy in 1984 at 38 Years. resection of small instestine for ileitis with appendectomy x 2 surgeries in 1964 at 18 Years. Hx prostate biopsy. Social History . Alcohol Use Alcohol Use: Denies Caffeine Use Caffeine Use: Current Caffeine Type: Soda Caffeine Frequency: Daily Current Tobacco Usage: Current Education: Graduate School Recreational Drug Use Recreational Drug Use: Denies Smoking Status: Smokes daily Physical Examination VS/Measurements VITAL SIGNS 10/05/2012 10:13 Temperature Tympanic 36.0 DegC LOW Peripheral Pulse Rate 70 bpm Respiratory Rate 18 br/min Systolic Blood Pressure 130 mmHg Diastolic Blood Pressure 80 mmHg Mean Arterial Pressure. 96.67 mmHg Blood Pressure Type Manual Blood Pressure Location Left arm 10/05/2012 [facility] Outside Hospitilization Record Grid Outside Hospitilization Record Grid 10/01/2012 [facility] Outside Colonoscopy Outside Colonoscopy 09/25/2012 [facility] Coding Summary Coding Summary CODING DATE: 09/05/2012 [facility] STATUS: Home PAYOR: Medicare ADMIT DX: REASON FOR VISIT DX: 782.0 Disturbance of Skin Sensation FINAL DX: PRINCIPAL: 782.0 Disturbance of Skin Sensation SECONDARY: PROCEDURES DOCTOR NAME DATE NOTE: The code number assigned matches the documented diagnosis and / or procedure in the patient's chart. However, the narrative phrase printed from the coding software may appear abbreviated, or result in slightly different terminology. Coded By: Suze Sierra Date Saved: 09/05/2012 07:47 am 09/05/[address] [facility] [address] Head W/O Contrast CT Head W/O Contrast NAJMA KELSEY CT OF THE HEAD WITHOUT CONTRAST INDICATION: Right-sided facial numbness times one month. COMPARISON: None. FINDINGS: There is no intracranial hemorrhage or mass effect. The lateral ventricles are slightly prominent. There is no midline shift. There are very mild age-related involutional changes. There are normal cisterns including the posterior fossa. There is no evidence of acute sinusitis or mastoiditis. The calvarium is intact. IMPRESSION: Unremarkable for age. Final Report Dictated By: Faustino Dyer MD Signed By: Faustino Dyer MD Signed Dt/tm: 07/28/2012 12:46 Transcribed By: LRR Transcribed Dt/tm: 07/28/2012 11:11</br> Clinical History Current History Rt Sided Facial Numbness x 1 month Previous History/Surgery n/a 07/28/2012 Final Report Dictated By: Faustino Dyer MD Signed By: Faustino Dyer MD Signed Dt/tm: 07/28/2012 12:46 Transcribed By: LRR Transcribed Dt/tm: 07/28/2012 11:11 [facility] Ambulatory Depart Summary Ambulatory Depart Summary [address] [id number] PERSON INFORMATION Name NAJMA KELSEY Age 67 Years 1945 Sex Male Language Vincentian PCP Oscar Waller MD Marital Status Time Zone Visit Id Visit Reason numbness on rt side of face/medicare & aarp Specialty Enc Type [facility] OUTPT-Outpatient/Hospital Referred by [facility] Discharge Process Discharge Tracking Id Checkout Checkin Acuity Dispo Type Arrival 07/26/2012 1:34 PM Reg Status LOS Address: [address] [place] [id number] PHYS DOC NOTES PROVIDER INFORMATION VITALS INFORMATION Height: 5ft 11.0in Weight: 212.31 lbs (BMI: 29.6) Temp: 97.9 F Heart Rate: 48 Respiratory: 18 O2 Sat: 97 BP: 140/90 LOCATION INFORMATION Arrival Nurse Unit Room Bed ORDERS INFORMATION MEDICAL INFORMATION Allergy Info: NKA HOME MEDICATIONS allopurinol 300 mg oral tablet 300 mg, Oral, Every 24 hours, 90 Day(s), 3 Refills Alpha Lipoic , 200mg daily amlodipine 2.5 mg oral tablet 2.5 mg, Oral, Daily, 90 Day(s), 3 Refills aspirin 81 mg oral tablet 81 mg, Oral, Every 24 hours chromium picolinate 500 mcg, Oral, DAILY, 2 tabs daily Fish Oil oral capsule , 2000 mg daily folic acid 0.8 mg oral tablet , 1 tab daily Garlic oral capsule , 1000mg 1 tab daily gemfibrozil 600 mg oral tablet 600 mg, Oral, Daily, 90 Day(s), 3 Refills ginseng , 400mg daily glucosamine 500 mg, Oral, Every 24 hours, 2 tab daily hydrochlorothiazide-valsartan 12.5 mg-320 mg oral tablet 1 Tab, Oral, Every 24 hours, 90 Day(s), 3 Refills magnesium oxide , Oral, 400 mg with zinc metformin 500 mg oral tablet, extended release 1,000 mg, Oral, At bedtime, 90 Day(s), 3 Refills Metoprolol Succinate ER 200 mg oral tablet, extended release 200 mg, Oral, Every 24 hours, 90 Day(s), 3 Refills Milk Thistle oral tablet , 1000mg daily MSM , 1000 mg daily potassium gluconate , 99 mg 4 tabs daily [place] , 160 mg daily selenium 50 mcg oral tablet Viagra 50 mg oral tablet 50 mg, Oral, Daily, 5 Refills, 1 hour before sexual activity vitamin A 8000 units oral capsule , 1 tab daily Vitamin B Complex oral capsule 1 Cap, Oral, Every 24 hours, 2 tabs daily Vitamin B12 1000 mcg/mL injectable solution 1,000 mcg, Intramuscular, Monthly Vitamin C 1000 mg oral tablet 1 Tab, Oral, Daily Vitamin D3 1000 intl units oral capsule , 2 capsules every AM vitamin E 400 intl units oral capsule 400 IU, Oral, Every 24 hours zinc gluconate 50 mg oral tablet , 1 tab daily DISCHARGE INFORMATION Discharge Disposition: Discharge Location: PATIENT EDUCATION INFORMATION Instructions: Follow up: DIAGNOSIS 07/26/2012 [facility] Office/Clinic Notes Office/Clinic Notes Patient: NAJMA KELSEY Age: 67 years Sex: Male : [birth year] Associated Diagnoses: Disorder of Trigeminal Nerve Author: Oscar Waller MD Visit Information Visit type: New symptom. Accompanied by: No one. Source of history: Self. Chief Complaint Pt presents today with right facial numbness without pain. History of Present Illness The patient presents with facial numbness. The location is the right side of the face, the right bahai, the right cheek and around the nose, not the right jaw. The onset was gradual. The duration is 3 weeks. It is described as no pain just numbness. Radiation to the right upper eyelid. The severity is mild. The symptom occurs constantly. The course is progressing as expected. Associated symptoms no fever, no edema: facial, no headache, no neck stiffness, no excessive tearing, no visual disturbance, no earache, no nasal congestion, no toothache, no rash no paresthesia. No exacerbating factors. No relieving factors. No effect on daily activities. Review of Systems Constitutional: Negative. Respiratory: Negative. Cardiovascular: Negative. Gastrointestinal: Negative. Neurologic: Negative. Health Status Allergies: . Allergic Reactions (All) NKA Current medications: (Selected). Prescriptions Ordered Metoprolol Succinate ER 200 mg oral tablet, extended release: 1 Tab, PO, Q24H, 90 Tab Viagra 50 mg oral tablet: 50 mg, 1 Tab, PO, daily, 1 hour before sexual activity , 10 Tab Vitamin B12 1000 mcg/mL injectable solution: 1,000 mcg, IM, QMONTH, 10 mL allopurinol 300 mg oral tablet: 1 Tab, PO, Q24H, 90 Tab amlodipine 2.5 mg oral tablet: 1 Tab, PO, daily, 90 Tab gemfibrozil 600 mg oral tablet: 1 Tab, PO, daily, 90 Tab hydrochlorothiazide-valsartan 12.5 mg-320 mg oral tablet: 1 Tab, PO, Q24H, 90 Tab metformin 500 mg oral tablet, extended release: 2 Tab, PO, AT BEDTIME, 180 Tab Documented Medications Documented Alpha Lipoic: Fish Oil oral capsule: Garlic oral capsule: MSM: Milk Thistle oral tablet: [place]: Vitamin B Complex oral capsule: 1 Cap, PO, Q24H Vitamin C 1000 mg oral tablet: 1 Tab, PO, daily, 30 Tab Vitamin D3 1000 intl units oral capsule: aspirin 81 mg oral tablet: 1 Tab, PO, Q24H chromium picolinate: 500 mcg, PO, QD, Tab folic acid 0.8 mg oral tablet: ginseng: glucosamine: 500 mg, PO, Q24H magnesium oxide: PO, Tab potassium gluconate: selenium 50 mcg oral tablet: vitamin A 8000 units oral capsule: vitamin E 400 intl units oral capsule: 400 IU, 1 Cap, PO, Q24H, Cap zinc gluconate 50 mg oral tablet: Problem list: . 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 Family History: Non contributory. Procedure History: Procedure history was reviewed. Physical Examination VS/Measurements Vital Signs 07/26/12 13:42 Temperature Tympanic 36.6 DegC Peripheral Pulse Rate 48 bpm LOW Respiratory Rate 18 br/min Systolic Blood Pressure 140 mmHg Diastolic Blood Pressure 90 mmHg Mean Arterial Pressure. 106.67 mmHg HI Blood Pressure Type Manual Blood Pressure Location Left arm , Measurements from flowsheet : Measurements 07/26/12 13:42 Height 180.3 cm Weight 96.3 kg Scale Balance BSA 2.1961 m2 Body Mass Index 29.6 kg/m2 General: Alert and oriented, No acute distress. Ambulation status: With steady gait. Appearance: Well nourished. Behavior: Cooperative. Hydration: Within normal limits. Skin: Within normal limits. Eye: Pupils are equal, round and reactive to light, Extraocular movements are intact, Normal conjunctiva. HENT: Normocephalic, Tympanic membranes are clear, No pharyngeal erythema. Nose: Both nostrils, Patent. Throat: Uvula ( Within normal limits ), Tonsils ( Bilateral tonsils, Within normal limits ), Pharynx ( Within normal limits ). Review / Management Differential diagnosis: Am concerned about the lack of findings and the atypical nature of his trigeminal neuralgia and need to rule out a tumor or some other explanation of the findings. Impression and Plan Diagnosis Disorder of Trigeminal Nerve (ICD9 350.9). Plan PowerOrders. Radiology: CT Head w/o Contrast (Future): 07/27/12 08:00 Routine, Reason: Other, Enter in Comments, Instructions: numbness along the distribution of the 5th cranial nerve , Rad Type, Order for future visit, Disorder of Trigeminal Nerve Counseled: Patient, Regarding diagnosis, Regarding treatment, printed out information on trigeminal neuralgia from [address] Patient Instructions: Follow up after imaging studies are resulted. [Electronically Signed on 07.26.2012 03:48 PM] Oscar Waller MD </br> 07/26/2012 [Electronically Signed on 07.26.2012 03:48 PM] Oscar Waller MD [facility] Office/Clinic Notes Office/Clinic Notes Patient: NAJMA KELSEY Age: 67 years Sex: Male : [birth year] Associated Diagnoses: None Author: Shalini Morataya Visit Information Visit type: New symptom. Accompanied by: No one. Source of history: Self. Chief Complaint Pt presents today with right facial numbness without pain. History of Present Illness The patient presents with facial numbness. The location is the right side of the face, the right bahai, the right cheek and around the nose, not the right jaw. The onset was gradual. The duration is 3 weeks. It is described as no pain just numbness. Radiation to the right upper eyelid. The severity is mild. The symptom occurs constantly. The course is progressing as expected. Associated symptoms no fever, no edema: facial, no headache, no neck stiffness, no excessive tearing, no visual disturbance, no earache, no nasal congestion, no toothache, no rash no paresthesia. No exacerbating factors. No relieving factors. No effect on daily activities. Review of Systems Constitutional: Negative. Respiratory: Negative. Cardiovascular: Negative. Gastrointestinal: Negative. Neurologic: Negative. Health Status Allergies: . Allergic Reactions (All) NKA Current medications: (Selected). Prescriptions Ordered Metoprolol Succinate ER 200 mg oral tablet, extended release: 1 Tab, PO, Q24H, 90 Tab Viagra 50 mg oral tablet: 50 mg, 1 Tab, PO, daily, 1 hour before sexual activity , 10 Tab Vitamin B12 1000 mcg/mL injectable solution: 1,000 mcg, IM, QMONTH, 10 mL allopurinol 300 mg oral tablet: 1 Tab, PO, Q24H, 90 Tab amlodipine 2.5 mg oral tablet: 1 Tab, PO, daily, 90 Tab gemfibrozil 600 mg oral tablet: 1 Tab, PO, daily, 90 Tab hydrochlorothiazide-valsartan 12.5 mg-320 mg oral tablet: 1 Tab, PO, Q24H, 90 Tab metformin 500 mg oral tablet, extended release: 2 Tab, PO, AT BEDTIME, 180 Tab Documented Medications Ordered Alpha Lipoic: Fish Oil oral capsule: Garlic oral capsule: MSM: Milk Thistle oral tablet: [place]: Vitamin B Complex oral capsule: 1 Cap, PO, Q24H Vitamin C 1000 mg oral tablet: 1 Tab, PO, daily, 30 Tab Vitamin D3 1000 intl units oral capsule: aspirin 81 mg oral tablet: 1 Tab, PO, Q24H chromium picolinate: 500 mcg, PO, QD, Tab folic acid 0.8 mg oral tablet: ginseng: glucosamine: 500 mg, PO, Q24H magnesium oxide: PO, Tab potassium gluconate: selenium 50 mcg oral tablet: vitamin A 8000 units oral capsule: vitamin E 400 intl units oral capsule: 400 IU, 1 Cap, PO, Q24H, Cap zinc gluconate 50 mg oral tablet: Problem list: . 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 No active or resolved past medical history items have been selected or recorded. Family History: . Cardiovascular Past Medical History Heart Disease Medical History: Mother High Blood Pressure Medical History: Father Family Status Father: Living Sister 1: Living Mother: Living Paternal Grandfather: Paternal Grandmother: Maternal Grandfather: Maternal Grandmother: Brother 1: Living Gastrointestinal Past Medical Hx Gastrointestinal, Other Medical History: Father, tumor growth at stomach lining Neurological Past Medical History Migraines Medical History: Sibling Ocular Past Medical History Ocular, Other Medical History: Mother, retina surgery Family Status Reviewed With Patient: Review complete Procedure History: . Colonoscopy * (03625) in 2010 at 65 Years. cholestectomy in 1984 at 38 Years. resection of small instestine for ileitis with appendectomy x 2 surgeries in 1965 at 18 Years. Hx prostate biopsy. Social History . Alcohol Use Alcohol Use: Denies Caffeine Use Caffeine Use: Current Caffeine Type: Soda Caffeine Frequency: Daily Current Tobacco Usage: Current Education: [employer] Recreational Drug Use Recreational Drug Use: Denies Smoking Status: Smokes daily Physical Examination VS/Measurements Vital Signs 07/26/12 13:42 Temperature Tympanic 36.6 DegC Peripheral Pulse Rate 48 bpm LOW Respiratory Rate 18 br/min Systolic Blood Pressure 140 mmHg Diastolic Blood Pressure 90 mmHg Mean Arterial Pressure. 106.67 mmHg HI Blood Pressure Type Manual Blood Pressure Location Left arm , Measurements from flowsheet : Measurements 07/26/12 13:42 Height 180.3 cm Weight 96.3 kg Scale Balance BSA 2.1961 m2 Body Mass Index 29.6 kg/m2 07/26/2012 [facility] SMEG-Healthcare Goals 1 SMEG-Healthcare Goals 1 No [id number] No [id number] No CD:[id number] No CD:[id number] No CD:[id number] No [id number] No CD:[id number] No CD:[id number] No CD:[id number] No 07/26/2012 [facility] Level of Functioning Grid-Clinic Level of Functioning Grid-Clinic 07/26/2012 [facility] Ambulatory Depart Summary Ambulatory Depart Summary [facility] AT [address] [id number] PERSON INFORMATION Name NAJMA KELSEY Age 66 Years 1945 Sex Male Language Vincentian PCP Oscar Waller MD Marital Status Time Zone N [id number] Visit Id Visit Reason MED REFILLS-SELF PAY Specialty Enc Type [facility] Med Service PHYSOFF-Physician Office Referred by [facility] Discharge Process Discharge Tracking Id Checkout Checkin Acuity Dispo Type Arrival 05/15/2012 8:55 AM Reg Status LOS Address: [address] [place] [id number] PHYS DOC NOTES PROVIDER INFORMATION VITALS INFORMATION Height: 5ft 11.0in Weight: 211.20 lbs (BMI: 29.5) Temp: 98.2 F Heart Rate: 56 Respiratory: 12 O2 Sat: 97 BP: 130/87 LOCATION INFORMATION Arrival Nurse Unit Room Bed 05/15/2012 8:56 AM ORDERS INFORMATION Start Time Order Type Status Stop Time Provider 05/15/2012 9:36 AM Adacel, TDaP Vaccine Careset -Clinic Clinic Careset Ordered 9:36 AM Oscar Waller MD 05/15/2012 9:34 AM Adacel, TDaP Vaccine -Clinic Clinic Charge Ordered 05/15/2012 9:34 AM Oscar Waller MD 05/15/2012 9:34 AM First Vaccine, Immunization Admin -Clinic Clinic Charge Ordered 05/15/2012 9:34 AM Oscar Waller MD MEDICAL INFORMATION Allergy Info: NKA HOME MEDICATIONS allopurinol 300 mg oral tablet 300 mg, Oral, Every 24 hours, 90 Day(s), 3 Refills, Routed to: [facility] [employer] Alpha Lipoic , 200mg daily amlodipine 2.5 mg oral tablet 2.5 mg, Oral, Daily, 90 Day(s), 3 Refills, Routed to: [employer] aspirin 81 mg oral tablet 81 mg, Oral, Every 24 hours chromium picolinate 500 mcg, Oral, DAILY, 2 tabs daily Enbrel 50 mg/mL subcutaneous solution , twice week Fish Oil oral capsule , 2000 mg daily folic acid 0.8 mg oral tablet , 1 tab daily Garlic oral capsule , 1000mg 1 tab daily gemfibrozil 600 mg oral tablet 600 mg, Oral, Daily, 90 Day(s), 3 Refills, Routed to: [employer] ginseng , 400mg daily glucosamine 500 mg, Oral, Every 24 hours, 2 tab daily hydrochlorothiazide-valsartan 12.5 mg-320 mg oral tablet 1 Tab, Oral, Every 24 hours, 90 Day(s), 3 Refills, Routed to: [employer] magnesium oxide , Oral, 400 mg with zinc metformin 500 mg oral tablet, extended release 1,000 mg, Oral, At bedtime, 90 Day(s), 3 Refills, Routed to: [employer] Metoprolol Succinate ER 200 mg oral tablet, extended release 200 mg, Oral, Every 24 hours, 90 Day(s), 3 Refills, Routed to: [employer] Milk Thistle oral tablet , 1000mg daily MSM , 1000 mg daily potassium gluconate , 99 mg 4 tabs daily [place] , 160 mg daily Selenium TR 200 mcg oral tablet , 1 tab daily Viagra 50 mg oral tablet 50 mg, Oral, Daily, 5 Refills, 1 hour before sexual activity vitamin A 8000 units oral capsule , 1 tab daily Vitamin B Complex oral capsule 1 Cap, Oral, Every 24 hours, 2 tabs daily Vitamin B12 1000 mcg/mL injectable solution 1,000 mcg, Intramuscular, Monthly Vitamin C 1000 mg oral tablet 1 Tab, Oral, Daily Vitamin D3 1000 intl units oral capsule , 2 capsules every AM vitamin E 400 intl units oral capsule 400 IU, Oral, Every 24 hours Welchol 625 mg oral tablet 1,875 mg, Oral, 2 times a day, 90 Day(s), 3 Refills , Pt wanting written script to [facility] zinc gluconate 50 mg oral tablet , 1 tab daily DISCHARGE INFORMATION Discharge Disposition: Discharge Location: PATIENT EDUCATION INFORMATION Instructions: Diabetes and Heart Disease; GOUTY ARTHRITIS; Eating to Prevent Gout; HYPERTENSION, Established Follow up: DIAGNOSIS 05/15/2012 [facility] Office/Clinic Notes Office/Clinic Notes Patient: NAJMA KELSEY Age: 66 years Sex: Male : 1945 Associated Diagnoses: HDL deficiency; Need for diphtheria, tetanus, acellular pertussis, haemophilus influenzae, and hepatitis B virus vaccine; Diabetes mellitus type II; Colitis, Ulcerative; Chronic gout; B12 vitamin deficiency Author: Oscar Waller MD Chief Complaint Reason For Visit: The patient is here today for medication refills. Additional Information: Send through [facility] Interval History Najma is a 66 year old with diabetes, hyperlipidemia, gout, B12 deficiency, snf iliatis maneged very well. He comes in today to have his medications refilled. He had his annual labs drawn in mid February and we reviewed those today. He's doing pretty well keeping his blood sugars under control with A1c at 6% and Uric Acid on the borderline of 6.0. Lipid profile is excellent and stable and at goal and today his blood pressure is below 140/90. He's still drinking too many artificially sweatened drinks (may go through a case or 2 of Coke Zero a week) though and that's compromising his health. Diabetes, Type 2 Glucose results within target range. Hemoglobin A1c results exactly 6%. Hyperglycemic episodes decreased and unchanged. Hypoglycemic episodes decreased. The course is progressing as expected and well controlled. Associated symptoms characterized by weight gain and primarily during the winter. Exclusions Adherence Characterized by patient is taking meds as directed. Review of Systems Constitutional: Weight gain, No sweats, No weakness, No fatigue. Eye: Recent visual problem, is having some issues with where they put the bifocal lines in the glasses and is scheduling another ophthalmological exam. Respiratory: No shortness of breath, No cough. Cardiovascular: No chest pain. Genitourinary: No dysuria, No hematuria, No change in urine stream. Endocrine: No excessive thirst, No polyuria, No excessive hunger, No flushing, No hyperglycemia, No hypoglycemia. Integumentary: No rash, No breakdown. A complete review of systems was negative except as noted above and in the history of present illness Health Status Allergies: . Allergic Reactions (Selected) NKA Problem list: . 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 Family History: Non contributory. Procedure History: Procedure history was reviewed. Physical Examination VS/Measurements Vital Signs 05/15/2012 8:59 Temperature Oral 36.8 DegC Peripheral Pulse Rate 56 bpm LOW Respiratory Rate 12 br/min Systolic Blood Pressure 130 mmHg Diastolic Blood Pressure 87 mmHg Mean Arterial Pressure. 101.33 mmHg Blood Pressure Location Left arm , Measurements from flowsheet : Measurements 05/15/2012 8:59 Height 180.3 cm Weight 95.8 kg Scale Standing digital BSA 2.1904 m2 Body Mass Index 29.5 kg/m2 General: Alert and oriented, No acute distress. Ambulation status: With steady gait. Appearance: Well nourished. Behavior: Cooperative. Hydration: Within normal limits. Skin: Within normal limits. Eye: Pupils are equal, round and reactive to light, Extraocular movements are intact, Normal conjunctiva. HENT: Normocephalic, Tympanic membranes are clear, No pharyngeal erythema. Nose: Both nostrils, Patent. Throat: Uvula ( Within normal limits ), Tonsils ( Left tonsil ), Pharynx ( Within normal limits ). Neck: Supple, Non-tender, No lymphadenopathy, No thyromegaly. Respiratory: Lungs are clear to auscultation, Respirations are non-labored, Breath sounds are equal, No chest wall tenderness. Cardiovascular: Normal rate, Regular rhythm, No murmur, Normal peripheral perfusion, No edema. Gastrointestinal: Soft, Non-tender, Normal bowel sounds, No organomegaly, however he does have the typical metabolic syndrome belly with a waist circumference north of 42". Musculoskeletal: Normal range of motion, Normal strength, No tenderness. Integumentary: No psoriatic lesions noted today. Feet: Normal by visual exam, Normal pulses, Sensation intact. Neurologic: Alert, Oriented, Normal sensory, Normal motor function, No focal defects, Cranial Nerves II-XII are grossly intact. Health Maintenance Age 25 - 64 years: Immunizations: Td vaccine. Screening: blood pressure screen, lab reviewed recent labs. Risks/ Unsafe Exposure: cardiovascular risk metabolic syndrome. Counseling: spent 30 minutes going over recent data on eating habits. He still is too tied to the normal western diet to be able to avoid medications and is not getting the daily exercise necessary for his health. Impression and Plan Diagnosis HDL deficiency (ICD9 272.5). Need for diphtheria, tetanus, acellular pertussis, haemophilus influenzae, and hepatitis B virus vaccine (ICD9 V06.8). Diabetes mellitus type II (ICD9 250.00). Colitis, Ulcerative (ICD9 556.9). Chronic gout (ICD9 274.02). B12 vitamin deficiency (ICD9 266.2). Plan PowerOrders. Pharmacy: metformin 500 mg oral tablet, extended release (Ordered): 2 Tab, PO, AT BEDTIME , 180 Tab amlodipine 2.5 mg oral tablet (Ordered): 1 Tab, PO, daily, 90 Tab gemfibrozil 600 mg oral tablet (Ordered): 1 Tab, PO, daily, 90 Tab hydrochlorothiazide-valsartan 12.5 mg-320 mg oral tablet (Ordered): 1 Tab, PO, Q24H, 90 Tab Metoprolol Succinate ER 200 mg oral tablet, extended release (Ordered): 1 Tab, PO, Q24H, 90 Tab allopurinol 300 mg oral tablet (Ordered): 1 Tab, PO, Q24H, 90 Tab tetanus/diphth/pertuss (Tdap) adult/adol (Ordered): 0.5 mL, IM, X 1 DOSE Metoprolol Succinate ER 200 mg oral tablet, extended release (Discontinued): 200 mg, 1 Tab, PO, Q24H, 90 Tab allopurinol 300 mg oral tablet (Discontinued): 300 mg, 1 Tab, PO, Q24H, 90 Tab gemfibrozil 600 mg oral tablet (Discontinued): 600 mg, 1 Tab, PO, daily, 30 Tab amlodipine 2.5 mg oral tablet (Discontinued): 2.5 mg, 1 Tab, PO, daily, 30 Tab metformin 500 mg oral tablet, extended release (Discontinued): 1,000 mg, 2 Tab, PO, AT BEDTIME, 180 Tab hydrochlorothiazide-valsartan 12.5 mg-320 mg oral tablet (Discontinued): 1 Tab, PO, Q24H, 90 Tab Clinic Charge: [facility] Vaccine -Clinic (Ordered): 05/15/2012 9:34 First Vaccine, Immunization Admin -Clinic (Ordered): 05/15/2012 9:34 Clinic Careset: [facility] Vaccine Careset -Clinic (Ordered) Counseled: Patient, Regarding diagnosis, Regarding medications, Diet, Activity , Recommend reading Fat Chance or watching YouTube Video. Patient Instructions: Diabetes and Heart Disease, GOUTY ARTHRITIS, Eating to Prevent Gout, HYPERTENSION, Established, Will put in orders for his semiannual labs which he'll have drawn in August and await his most recent ophthalmological exam results. [Electronically Signed on 05.15.2012 10:03 AM] Oscar Waller MD </br> 05/15/2012 [Electronically Signed on 05.15.2012 10:03 AM] Oscar Waller MD [facility] Amb Nurs Intake Event Amb Nurs Intake Event 2012 [facility] SMEG-Healthcare Goals 1 SMEG-Healthcare Goals 1 No [id number] No CD:[id number] No CD:[id number] No CD:[id number] No CD:[id number] No CD:[id number] No CD:[id number] No CD:[id number] No CD:[id number] No 05/15/2012 [facility] CHEM12 TCO2 20 mmol/L 24 - 32 02/25/2012 LOW [facility] CHEM12 eGFR () 49 mL/min >=60 02/25/2012 LOW Estimated GFR for an calculated using MDRD study equation. Verified by Discern Expert. [facility] CHEM12 Chloride 106 mmol/L 95 - 109 02/25/2012 N [facility] P7 Trig 138 mg/dL 30 - 150 02/25/2012 N [facility] TSH TSH 2.08 uIU/mL 0.41 - 5.48 02/25/2012 N [facility] URIC Uric Acid 6.0 mg/dL 3.5 - 7.2 02/25/2012 N [facility] A1C eAverage Glu 126 02/25/2012 NA Estimated average glucose has a linear relationship with Hgb A1C and is intended to simplify the discussion of glycemic control with patients. [facility] -RBC Morphology RBC Morph Normal Normal 02/25/2012 N Discern Expert [facility] -Auto Diff Abs Baso .020 thous/uL .000 - .200 2011 N [facility] CBC with Diff Instr WBC 8.86 x10^3/uL 02/25/2012 NA [facility] ALBSC UA Microalbumin 100 0 - 20 02/25/2012 ABN [facility] Outside Reference Lab Form Outside Reference Lab Form 04/16/2011 [facility] Office/Clinic Notes Office/Clinic Notes Patient: NAJMA KELSEY Age: 65 years Sex: Male : 1945 Associated Diagnoses: Hypertension; Vitamin B12 deficiency; HDL deficiency; Diabetes mellitus type II; Chronic gout Author: Oscar Waller MD Visit Information Visit type: Scheduled follow-up. Accompanied by: No one. Source of history: Self. Chief Complaint Pt. is here today to establish with Dr. Waller. He also needs a check up on hypertension, his B12 injection, and a TB test. Pt. states that he also needs lab work, including an A1C. 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 Since then he's had a number of chronic problems including psoriasis, gout, B12 deficiency and a very large inoperable ventral hernia. Lately he's developed diabetes and hypertension. He eats one meal a day that consists primarily of a roastery chicken and very little else. Doesn't eat fruits and vegetables but drinks a lot of Coke Zero. Hypertension Blood pressure readings 160/90. Associated symptoms characterized by no headache, chest pain, palpitations, shortness of breath or dizziness. No disease related encounters. General Exam General health status good. The effect on daily activities is change in activity level and excercising more. No medical encounters. Exclusions Adherence Characterized by patient is taking meds as directed and He is on Embrel which keeps his psoriasis under control and for which he needs annual TB skin tests. Review of Systems Constitutional: Negative. Respiratory: Negative. Cardiovascular: Negative. Gastrointestinal: Diarrhea, due to past surgeries. Endocrine: Excessive thirst. Musculoskeletal: Negative. Neurologic: Negative. Complete 12 point review of systems was negative except as noted above in ROS and HPI Health Status Allergies: . Allergic Reactions (Selected) NKA Current medications: . Prescriptions and Home Medications cholecalciferol (Vitamin D3 1000 intl units oral capsule), 0 Number of Refills, 2 capsules every AM omega-3 polyunsaturated fatty acids (Fish Oil oral capsule), 0 Number of Refills , 2000 mg daily vitamin E (vitamin E 400 intl units oral capsule), 400 IU, 1 Cap, PO, Q24H, Cap magnesium oxide, PO, Tab, 400 mg with zinc vitamin A (vitamin A 8000 units oral capsule), 0 Number of Refills, 1 tab daily chromium picolinate, 500 mcg, PO, QD, Tab, 2 tabs daily glucosamine, 500 mg, PO, Q24H, 2 tab daily milk thistle (Milk Thistle oral tablet), Maintenance, 05/11/10 11:49:16, 0 Number of Refills, 1000mg daily methylsulfonylmethane (MSM), Maintenance, 05/11/10 11:51:10, 0 Number of Refills , 1000 mg daily selenious acid (Selenium TR 200 mcg oral tablet), 0 Number of Refills, 1 tab daily garlic (Garlic oral capsule), Maintenance, 05/11/10 11:53:30, 0 Number of Refills, 1000mg 1 tab daily saw palmetto, 0 Number of Refills, 160 mg daily ginseng, Maintenance, 05/11/10 11:54:25, 0 Number of Refills, 400mg daily zinc gluconate (zinc gluconate 50 mg oral tablet), 0 Number of Refills, 1 tab daily ascorbic acid (Vitamin C 1000 mg oral tablet), 1 Tab, PO, daily, 30 Tab folic acid (folic acid 0.8 mg oral tablet), 0 Number of Refills, 1 tab daily alpha-lipoic acid (Alpha Lipoic), 0 Number of Refills, 200mg daily potassium gluconate, 0 Number of Refills, 99 mg 4 tabs daily multivitamin (Vitamin B Complex oral capsule), 1 Cap, PO, Q24H, 2 tabs daily etanercept (Enbrel 50 mg/mL subcutaneous solution), 0 Number of Refills, twice week Misc. Medication, 0 Number of Refills, Cinnamon 100 mg with Chromium 100mcg daily Misc. Medication, 0 Number of Refills, Lycopene 10 mg daily hydrochlorothiazide-valsartan (Diovan HCT 25 mg-160 mg oral tablet), 1 Tab, PO, daily, mail order - [facility], 90 Tab cyanocobalamin (Vitamin B12 1000 mcg/mL injectable solution), 1,000 mcg, IM, QMONTH, 10 mL gemfibrozil (gemfibrozil 600 mg oral tablet), 600 mg, 1 Tab, PO, daily, 90 Tab allopurinol (allopurinol 300 mg oral tablet), 300 mg, 1 Tab, PO, Q24H, 90 Tab metoprolol (metoprolol succinate 100 mg oral tablet, extended release), 1 Tab, PO, daily, 90 Tab colesevelam (Welchol 625 mg oral tablet), 1,875 mg, 3 Tab, PO, BID, Pt wanting written script to sent to [facility], 540 Tab metformin (metformin 500 mg oral tablet, extended release), 1,000 mg, 2 Tab, PO , AT BEDTIME, 180 Tab Problem list: . 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 Family History: Non contributory. Procedure History: Procedure history was reviewed. Physical Examination VS/Measurements Vital Signs 04/14/2011 10:06 Temperature Tympanic 36.4 DegC LOW Peripheral Pulse Rate 59 bpm LOW Respiratory Rate 20 br/min Systolic Blood Pressure 160 mmHg HI Diastolic Blood Pressure 90 mmHg Blood Pressure Type Manual Blood Pressure Location Left arm , Measurements from flowsheet : Measurements 04/14/2011 10:06 Height 180.0 cm Weight 95.400 kg Scale Standing digital BSA 2.1840 m2 Body Mass Index 29.4 General: Alert and oriented, No acute distress. Ambulation status: With steady gait. Appearance: Well nourished. Behavior: Cooperative. Hydration: Within normal limits. Skin: Within normal limits. Eye: Pupils are equal, round and reactive to light, Extraocular movements are intact, Normal conjunctiva. HENT: Normocephalic, Tympanic membranes are clear, No pharyngeal erythema. Nose: Both nostrils, Patent. Throat: Uvula ( Within normal limits ), Tonsils ( Left tonsil ), Pharynx ( Within normal limits ). Neck: Supple, Non-tender, No lymphadenopathy, No thyromegaly. Respiratory: Lungs are clear to auscultation, Respirations are non-labored, Breath sounds are equal, No chest wall tenderness. Cardiovascular: Normal rate, Regular rhythm, No murmur, Normal peripheral perfusion, No edema. Gastrointestinal: distended stomach but non-tender with normal bowel sounds. Musculoskeletal: Normal range of motion, Normal strength, No tenderness. Integumentary: Integumentary exam: Psoriasis. Neurologic: Alert, Oriented, Normal sensory, Normal motor function, No focal defects, Cranial Nerves II-XII are grossly intact. Impression and Plan Diagnosis Hypertension (ICD9 401.9). Hypertension (ICD9 401.9). Vitamin B12 deficiency (ICD9 266.2). 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 Diabetes mellitus type II (ICD9 250.00). Chronic gout (ICD9 274.02). Course: will see what the labs are and then most likely need to add a 3rd antihypertensive agent or increase the Diovan dose. Plan PowerOrders. Laboratory: Vitamin B12 Level (Ordered): 04/14/2011 10:49, Routine collect, Hypertension | Diabetes mellitus type II | Chronic gout | Vitamin B12 deficiency | HDL deficiency, [facility] A1C (Ordered): 04/14/2011 10:48, Routine collect, Hypertension | Diabetes mellitus type II | Chronic gout | Vitamin B12 deficiency | HDL deficiency, [facility] Panel 7 (Lipid Panel) (Ordered): 04/14/2011 10:48, Routine collect, Hypertension | Diabetes mellitus type II | Chronic gout | Vitamin B12 deficiency | HDL deficiency, [facility] GHP (Ordered) CBC with Diff (Ordered): 04/14/2011 10:48, Routine collect, Hypertension | Diabetes mellitus type II | Chronic gout | Vitamin B12 deficiency | HDL deficiency, [facility] Chemistry Profile (Ordered): 04/14/2011 10:48, Routine collect, Hypertension | Diabetes mellitus type II | Chronic gout | Vitamin B12 deficiency | HDL deficiency, [facility] Thyroid Stimulating Hormone (Ordered): 04/14/2011 10:48, Routine collect, Hypertension | Diabetes mellitus type II | Chronic gout | Vitamin B12 deficiency | HDL deficiency, [facility] PowerOrders. Laboratory: Microalbumin Screen (Ordered): 04/14/2011 10:52, Routine collect, Hypertension | Diabetes mellitus type II, [facility] PowerOrders. Pharmacy: cyanocobalamin (Ordered): 1,000 mcg, IM, X 1 DOSE Clinic Charge: Vitamin B-12 cyanocobalamin, 1,000 mcg -Clinic (Ordered): 04/14/2011 10:53 Admin SubQ or IM Injection -Clinic (Ordered): 04/14/2011 10:53 Clinic Careset: Vitamin B-12 cyanocobalamin 1,000 mcg Careset -Clinic (Ordered) Plan PowerOrders. Evaluation and Management: Office Visit Level 3 New - [id number] (Completed): 04/14/2011 12:37 Counseled: Patient, Regarding medications, Diet, Activity, lengthy 20 minute discussion on the need to expand his diet from just chicken and vitamins to include vegetables and to eat smaller, more frequent meals. Patient Instructions: Follow up after labs are resulted. 04/14/2011 [facility] Office/Clinic Notes Office/Clinic Notes Patient: NAJMA KELSEY Age: 65 years Sex: Male : 1945 Associated Diagnoses: None Author: Sabina Stovall Visit Information Visit type: Scheduled follow-up. Accompanied by: No one. Source of history: Self. Chief Complaint Pt. is here today to establish with Dr. Waller. He also needs a check up on hypertension, his B12 injection, and a TB test. Pt. states that he also needs lab work, including an A1C. Interval History Hypertension Blood pressure readings 160/90. Associated symptoms characterized by no headache, chest pain, palpitations, shortness of breath or dizziness. No disease related encounters. General Exam General health status good. The effect on daily activities is change in activity level and excercising more. No medical encounters. Exclusions Adherence Characterized by patient is taking meds as directed. Review of Systems Constitutional: Negative. Respiratory: Negative. Cardiovascular: Negative. Gastrointestinal: Negative. Endocrine: Excessive thirst. Musculoskeletal: Negative. Neurologic: Negative. Health Status Allergies: . Allergic Reactions (Selected) NKA Current medications: . Prescriptions and Home Medications cholecalciferol (Vitamin D3 1000 intl units oral capsule), 0 Number of Refills, 2 capsules every AM omega-3 polyunsaturated fatty acids (Fish Oil oral capsule), 0 Number of Refills , 2000 mg daily vitamin E (vitamin E 400 intl units oral capsule), 400 IU, 1 Cap, PO, Q24H, Cap magnesium oxide, PO, Tab, 400 mg with zinc vitamin A (vitamin A 8000 units oral capsule), 0 Number of Refills, 1 tab daily chromium picolinate, 500 mcg, PO, QD, Tab, 2 tabs daily glucosamine, 500 mg, PO, Q24H, 2 tab daily milk thistle (Milk Thistle oral tablet), Maintenance, 05/11/10 11:49:16, 0 Number of Refills, 1000mg daily methylsulfonylmethane (MSM), Maintenance, 05/11/10 11:51:10, 0 Number of Refills , 1000 mg daily selenious acid (Selenium TR 200 mcg oral tablet), 0 Number of Refills, 1 tab daily garlic (Garlic oral capsule), Maintenance, 05/11/10 11:53:30, 0 Number of Refills, 1000mg 1 tab daily saw palmetto, 0 Number of Refills, 160 mg daily ginseng, Maintenance, 05/11/10 11:54:25, 0 Number of Refills, 400mg daily zinc gluconate (zinc gluconate 50 mg oral tablet), 0 Number of Refills, 1 tab daily ascorbic acid (Vitamin C 1000 mg oral tablet), 1 Tab, PO, daily, 30 Tab folic acid (folic acid 0.8 mg oral tablet), 0 Number of Refills, 1 tab daily alpha-lipoic acid (Alpha Lipoic), 0 Number of Refills, 200mg daily potassium gluconate, 0 Number of Refills, 99 mg 4 tabs daily multivitamin (Vitamin B Complex oral capsule), 1 Cap, PO, Q24H, 2 tabs daily etanercept (Enbrel 50 mg/mL subcutaneous solution), 0 Number of Refills, twice week Misc. Medication, 0 Number of Refills, Cinnamon 100 mg with Chromium 100mcg daily Misc. Medication, 0 Number of Refills, Lycopene 10 mg daily hydrochlorothiazide-valsartan (Diovan HCT 25 mg-160 mg oral tablet), 1 Tab, PO, daily, [facility], 90 Tab cyanocobalamin (Vitamin B12 1000 mcg/mL injectable solution), 1,000 mcg, IM, QMONTH, 10 mL gemfibrozil (gemfibrozil 600 mg oral tablet), 600 mg, 1 Tab, PO, daily, 90 Tab allopurinol (allopurinol 300 mg oral tablet), 300 mg, 1 Tab, PO, Q24H, 90 Tab metoprolol (metoprolol succinate 100 mg oral tablet, extended release), 1 Tab, PO, daily, 90 Tab colesevelam (Welchol 625 mg oral tablet), 1,875 mg, 3 Tab, PO, BID, Pt wanting written script to sent to [facility], 540 Tab metformin (metformin 500 mg oral tablet, extended release), 1,000 mg, 2 Tab, PO , AT BEDTIME, 180 Tab Histories Past Medical History: . No active or resolved past medical history items have been selected or recorded. Family History: . Cardiovascular Past Medical History Heart Disease Medical History: Mother High Blood Pressure Medical History: Father Family Status Father: Living Mother: Living Paternal Grandfather: Paternal Grandmother: Maternal Grandfather: Maternal Grandmother: Brother 1: Living Sister 1: Living Gastrointestinal Past Medical Hx Gastrointestinal, Other Medical History: Father, tumor growth at stomach lining Neurological Past Medical History Migraines Medical History: Sibling Ocular Past Medical History Ocular, Other Medical History: Mother, retina surgery Procedure History: . cholestectomy in 1985 at 38 Years. resection of small instestine for ileitis with appendectomy x 2 surgeries in 1965 at 18 Years. Hx prostate biopsy. Social History . Cigarette Use Packs/Day: 0.5 pack per day Comment: or less Tobacco Type: Cigarettes 04/14/2011 [facility] Outside Reference Lab Form Outside Reference Lab Form 04/14/2011 [facility] DX Chest 2 View DX Chest 2 View NAJMA SPIVACK CHEST, 2 VIEWS INDICATION: Cough, hypertension, diabetes. The heart is not grossly enlarged. The mediastinum is not widened. There is no failure or effusion. There is mild blunting of the posterior right costophrenic angle. IMPRESSION: 1. No failure. 2. There is some blunting of the posterior right costophrenic angle. Final Report Dictated By: Harirson Momin MD Signed By: Harrison Momin MD Signed Dt/tm: 05/19/2010 16:03 Transcribed By: RRR Transcribed Dt/tm: 05/19/2010 15:44</br> Clinical History Current History cough, physical exam Previous History/Surgery HTN, diabetes, cholecystectomy 05/19/2010 Final Report Dictated By: Harrison Momin MD Signed By: Harrison Momin MD Signed Dt/tm: 05/19/2010 16:03 Transcribed By: RRR Transcribed Dt/tm: 05/19/2010 15:44 [facility] DX Abdomen 1 View DX Abdomen 1 View NAJMA SPIVACK KUB INDICATION: Nephrolithiasis. Supine films demonstrates surgical changes in the right abdomen. Calcifications are projected over the right kidney. The left kidney is obscured. IMPRESSION: 1. Right nephrolithiasis. 2. The left kidney is obscured. 3. Status post surgical changes. Final Report Dictated By: Harrison Momin MD Signed By: Harrison Momin MD Signed Dt/tm: 05/19/2010 16:03 Transcribed By: RRR Transcribed Dt/tm: 05/19/2010 15:46</br> Clinical History Current History hx of nephrolithiasis Previous History/Surgery hx of renal stones, small bowel resection, cholecystectomy, abdominal wall hernia, appy 05/19/2010 Final Report Dictated By: Harrison Momin MD Signed By: Harrison Momin MD Signed Dt/tm: 05/19/2010 16:03 Transcribed By: RREmelia Transcribed Dt/tm: 05/19/2010 15:46 [facility] Care Office/Clinic Notes Office/Clinic Notes Patient: NAJMA KELSEY Age: 64 years Sex: Male : 1945 Associated Diagnoses: None Author: David Snell MD Visit Information Visit type: Annual exam. Accompanied by: No one. Source of history: Self. History limitation: None. Chief Complaint Physical History of Present Illness Total cholesterol results < 200 mg/dL (optimal). Triglyceride results 200-499 mg/dL (high). The course is worsening. Associated symptoms no fatigue, no chest pain, no joint pain no muscle weakness. Hemoglobin A1c results > 6%. Hyperglycemic episodes decreased. Hypoglycemic episodes decreased. The course is progressing as expected. Associated symptoms patients diet has not been the greatest since his was since and has , no weight gain, no weight loss, no excessive hunger, no excessive thirst no hyperglycemia. Blood pressure readings elevated. The course is progressing as expected. Associated symptoms no pallor, no sweats, no headache, no chest pain, no shortness of breath no dizziness. Well Adult History Well Adult History The general health status is stable. The effect on daily activities is change in eating habits and change in sleeping patterns, no change in activity level, no change in sexual activity and no change in work/school duties. There were medical encounters including 0 erp consultant visits in the last year, 0 emergency department visits in the last year and 0 hospitalizations in the last year. Associated symptoms characterized by no weight gain or weight loss. Review of Systems Constitutional: Negative. Eye: Negative. Ear/Nose/Mouth/Throat: Negative. Respiratory: Negative. Cardiovascular: Negative, HTN. Gastrointestinal: Negative. Genitourinary: Normal for age. Hematology/Lymphatics: Negative. Endocrine: Negative. Immunologic: Negative. Musculoskeletal: Negative. Integumentary: Negative. Neurologic: Negative. Psychiatric: Negative. Health Status Allergies: . Allergic Reactions (Selected) NKA Current medications: . Prescriptions and Home Medications hydrochlorothiazide-lisinopril, 1 Tab, PO, QD, 25mg HCTZ 40mg Lisinopril daily metoprolol (metoprolol 100 mg oral tablet, extended release), 1 Tab, PO, daily, 30 Tab allopurinol (allopurinol 300 mg oral tablet), 300 mg, 1 Tab, PO, Q24H gemfibrozil (gemfibrozil 600 mg oral tablet), 600 mg, 1 Tab, PO, daily metformin (metformin 500 mg oral tablet, extended release), 1,000 mg, 2 Tab, PO , AT BEDTIME cholecalciferol (Vitamin D3 1000 intl units oral capsule), 0 Number of Refills, 2 capsules every AM omega-3 polyunsaturated fatty acids (Fish Oil oral capsule), 0 Number of Refills , 2000 mg daily vitamin E (vitamin E 400 intl units oral capsule), 400 IU, 1 Cap, PO, Q24H, Cap magnesium oxide, PO, Tab, 400 mg with zinc vitamin A (vitamin A 8000 units oral capsule), 0 Number of Refills, 1 tab daily chromium picolinate, 500 mcg, PO, QD, Tab, 2 tabs daily glucosamine, 500 mg, PO, Q24H, 2 tab daily milk thistle (Milk Thistle oral tablet), Maintenance, 05/11/10 11:49:16, 0 Number of Refills, 1000mg daily methylsulfonylmethane (MSM), Maintenance, 05/11/10 11:51:10, 0 Number of Refills , 1000 mg daily selenious acid (Selenium TR 200 mcg oral tablet), 0 Number of Refills, 1 tab daily garlic (Garlic oral capsule), Maintenance, 05/11/10 11:53:30, 0 Number of Refills, 1000mg 1 tab daily saw palmetto, 0 Number of Refills, 160 mg daily ginseng, Maintenance, 05/11/10 11:54:25, 0 Number of Refills, 400mg daily zinc gluconate (zinc gluconate 50 mg oral tablet), 0 Number of Refills, 1 tab daily ascorbic acid (Vitamin C 1000 mg oral tablet), 1 Tab, PO, daily, 30 Tab folic acid (folic acid 0.8 mg oral tablet), 0 Number of Refills, 1 tab daily alpha-lipoic acid (Alpha Lipoic), 0 Number of Refills, 200mg daily potassium gluconate, 0 Number of Refills, 99 mg 4 tabs daily multivitamin (Vitamin B Complex oral capsule), 1 Cap, PO, Q24H, 2 tabs daily etanercept (Enbrel 50 mg/mL subcutaneous solution), 0 Number of Refills, twice week Misc. Medication, 0 Number of Refills, Cinnamon 100 mg with Chromium 100mcg daily Misc. Medication, 0 Number of Refills, Lycopene 10 mg daily hydrochlorothiazide-valsartan (Diovan HCT 25 mg-160 mg oral tablet), 1 Tab, PO, daily, [facility], 90 Tab zolpidem (Ambien 5 mg oral tablet), 5 mg, 1 Tab, PO, AT BEDTIME, 30 Tab, PRN: Insomnia, call into [facility] Histories Past Medical History: . No active or resolved past medical history items have been selected or recorded. Family History: . Neurological Past Medical History Migraines Medical History: Sibling Gastrointestinal Past Medical Hx Gastrointestinal, Other Medical History: Father, tumor growth at stomach lining Cardiovascular Past Medical History Heart Disease Medical History: Mother High Blood Pressure Medical History: Father Ocular Past Medical History Ocular, Other Medical History: Mother, retina surgery Family Status Father: Living Mother: Living Paternal Grandfather: Paternal Grandmother: Maternal Grandfather: Maternal Grandmother: Brother 1: Living Sister 1: Living Procedure History: . cholestectomy in 1984 at 38 Years. resection of small instestine for ileitis with appendectomy x 2 surgeries in 1964 at 18 Years. Hx prostate biopsy. Social History . 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 Recreational Drug Use Recreational Drug Use: Denies Alcohol Use Alcohol Use: Denies Tobacco Use Tobacco Use: Current Tobacco Type: Cigarettes Cigarette Use Packs/Day: 0.5 pack per day Comment: or less Physical Examination VS/Measurements Vital Signs 05/19/10 14:01 Temperature Tympanic 36.0 DegC Peripheral Pulse Rate 54 bpm Respiratory Rate 18 br/min Systolic Blood Pressure 156 mmHg Diastolic Blood Pressure 90 mmHg , Measurements from flowsheet : Measurements 05/19/10 14:01 Estimated Height 180.3 cm Weight 98.8 kg Documented vital signs: Blood Pressure ( Systolic 156 mmHg, Diastolic 90 mmHg, Sitting ), Pulse ( 54 beats per min ), Respiration ( 18 breaths/ min ), Temperature ( Tympanic 36.0 degrees Celsius ), Oxygen saturation 98 % , Estimated height ( 180.3 cms ), Measured weight ( 98.8 kgs ) General: Alert and oriented, No acute distress. Eye: Pupils are equal, round and reactive to light, Extraocular movements are intact. HENT: Normocephalic. Neck: Supple. Respiratory: Lungs are clear to auscultation, Respirations are non-labored, Breath sounds are equal, Symmetrical chest wall expansion, No chest wall tenderness. Cardiovascular: Normal rate, Regular rhythm, No murmur, No gallop, Good pulses equal in all extremities, Normal peripheral perfusion, No edema. Gastrointestinal: Soft, Non-tender, Non-distended, Normal bowel sounds, No organomegaly, large multifaceted abdominal wall hernia. Genitourinary: Normal genitalia for age, No scrotal tenderness, No inguinal tenderness, No urethral discharge, No lesions, rectal examination: minimal stool in vault, no rectal mass, guaic negative, no internal or external hemorrhoids appreciated on examination. . Lymphatics: No lymphadenopathy. Musculoskeletal: Normal range of motion, Normal strength, No tenderness, No swelling, No deformity, Normal gait. Integumentary: Warm, No rash. Neurologic: Alert, Oriented, Normal sensory, Normal motor function, No focal defects, Cranial Nerves II-XII are grossly intact, Normal deep tendon reflexes. Psychiatric: Cooperative, Appropriate mood & affect, Normal judgment. Review / Management Results review: Interpretation: labs reviewed with patient. Radiology results X-ray, kub and chest xray will send out to radiology for overread, chest xray appears clear with hyperinflated lungs, and no obvious stones on kub ECG interpretation: Within normal limits, Normal sinus rhythm, right bundle branch block. Impression and Plan Diagnosis Annual exam (ICD9 V70.0). Screening for colon cancer (ICD9 V76.51). Plan [facility]. Consults -Request: GI Consult -Request (Ordered): 05/19/2010 15:29 [facility]. Evaluation and Management: Preventive, established patient, (age 40-64 years) -[id number] (Completed): 2010 15:33 [facility]. Evaluation and Management: Office Visit Level 3 Est - [id number] (Completed): 05/19/2010 15:34 recommend colonoscopy. [facility]. Consults -Request: GI Consult -Request (Ordered): 05/19/2010 14:20 [facility]. Cardiology -Clinic: EKG Routine 12 Leads - Clinic (Ordered): 05/19/2010 14:23, Annual exam EKG Routine 12 Leads Tracing -Clinic (Ordered): 05/19/2010 14:23, Annual exam EKG Routine 12 Leads Interpretation -Clinic (Ordered): 05/19/2010 14:23, Annual exam Clinic Careset: EKG Routine 12 Leads Careset -Clinic (Ordered) Diagnosis HTN (ICD9 401.9). Plan 2 gm low sodium diet, he is waiting for his ccb medication to come from his mail order, he is taking his other medication and he refuses to allow me to give him a 30 day supply. Patient given blood pressure goals and call parameteres and states understanding. . Diagnosis Diabetes mellitus type II (ICD9 250.00). Plan hga1c is 7.0, but the patient states that this is bad for him, recommend adhering to the ada diet. Diagnosis Hypertriglyceridemia (ICD9 272.1). Plan low fat diet, exercise and blood sugar control. Diagnosis Nephrolithiasis (ICD9 592.0). Plan patient would like kub. [facility]Orders. Radiology: DX Abdomen 1 View (Ordered): 05/19/2010 14:22 Routine, Rad Type, Nephrolithiasis , [facility] DX Chest 2 View (Ordered): 05/19/2010 14:22 Routine, Rad Type, Annual exam, [facility] Diagnosis Family History of Ischemic Heart Disease (ICD9 V17.3). Bundle branch block, right (ICD9 426.4). Plan [facility]ders. Radiology -Request: EC Stress Echocardiogram-Request (Ordered): 05/19/2010 15:31 Diagnosis Abdominal wall hernia (ICD9 553.20). Course: Progressing as expected. Plan patient has had this repaired several times, and is not interested in any additional intervention . Counseled: Patient, Regarding diagnosis, Regarding treatment. 05/19/2010 [facility] Office/Clinic Notes Office/Clinic Notes Patient: NAJMA KELSEY Age: 64 years Sex: Male : [birth year] Associated Diagnoses: None Author: Ruchi Medellin LPN Visit Information Visit type: Annual exam. Accompanied by: No one. Source of history: Self. History limitation: None. Chief Complaint Physical Well Adult History Well Adult History The general health status is stable. The effect on daily activities is change in eating habits and change in sleeping patterns, no change in activity level, no change in sexual activity and no change in work/school duties. There were medical encounters including 0 erp consultant visits in the last year, 0 emergency department visits in the last year and 0 hospitalizations in the last year. Associated symptoms characterized by no weight gain or weight loss. Review of Systems Cardiovascular: HTN. Health Status Allergies: . Allergic Reactions (Selected) NKA Current medications: . Prescriptions and Home Medications hydrochlorothiazide-lisinopril, 1 Tab, PO, QD, 25mg HCTZ 40mg Lisinopril daily metoprolol (metoprolol 100 mg oral tablet, extended release), 1 Tab, PO, daily, 30 Tab allopurinol (allopurinol 300 mg oral tablet), 300 mg, 1 Tab, PO, Q24H gemfibrozil (gemfibrozil 600 mg oral tablet), 600 mg, 1 Tab, PO, daily metformin (metformin 500 mg oral tablet, extended release), 1,000 mg, 2 Tab, PO , AT BEDTIME cholecalciferol (Vitamin D3 1000 intl units oral capsule), 0 Number of Refills, 2 capsules every AM omega-3 polyunsaturated fatty acids (Fish Oil oral capsule), 0 Number of Refills , 2000 mg daily vitamin E (vitamin E 400 intl units oral capsule), 400 IU, 1 Cap, PO, Q24H, Cap magnesium oxide, PO, Tab, 400 mg with zinc vitamin A (vitamin A 8000 units oral capsule), 0 Number of Refills, 1 tab daily chromium picolinate, 500 mcg, PO, QD, Tab, 2 tabs daily glucosamine, 500 mg, PO, Q24H, 2 tab daily milk thistle (Milk Thistle oral tablet), Maintenance, 05/11/10 11:49:16, 0 Number of Refills, 1000mg daily methylsulfonylmethane (MSM), Maintenance, 05/11/10 11:51:10, 0 Number of Refills , 1000 mg daily selenious acid (Selenium TR 200 mcg oral tablet), 0 Number of Refills, 1 tab daily garlic (Garlic oral capsule), Maintenance, 05/11/10 11:53:30, 0 Number of Refills, 1000mg 1 tab daily saw palmetto, 0 Number of Refills, 160 mg daily ginseng, Maintenance, 05/11/10 11:54:25, 0 Number of Refills, 400mg daily zinc gluconate (zinc gluconate 50 mg oral tablet), 0 Number of Refills, 1 tab daily ascorbic acid (Vitamin C 1000 mg oral tablet), 1 Tab, PO, daily, 30 Tab folic acid (folic acid 0.8 mg oral tablet), 0 Number of Refills, 1 tab daily alpha-lipoic acid (Alpha Lipoic), 0 Number of Refills, 200mg daily potassium gluconate, 0 Number of Refills, 99 mg 4 tabs daily multivitamin (Vitamin B Complex oral capsule), 1 Cap, PO, Q24H, 2 tabs daily etanercept (Enbrel 50 mg/mL subcutaneous solution), 0 Number of Refills, twice week Misc. Medication, 0 Number of Refills, Cinnamon 100 mg with Chromium 100mcg daily Misc. Medication, 0 Number of Refills, Lycopene 10 mg daily hydrochlorothiazide-valsartan (Diovan HCT 25 mg-160 mg oral tablet), 1 Tab, PO, daily, [facility], 90 Tab zolpidem (Ambien 5 mg oral tablet), 5 mg, 1 Tab, PO, AT BEDTIME, 30 Tab, PRN: Insomnia, [facility] Histories Past Medical History: . No active or resolved past medical history items have been selected or recorded. Family History: . Neurological Past Medical History Migraines Medical History: Sibling Gastrointestinal Past Medical Hx Gastrointestinal, Other Medical History: Father, tumor growth at stomach lining Cardiovascular Past Medical History Heart Disease Medical History: Mother High Blood Pressure Medical History: Father Ocular Past Medical History Ocular, Other Medical History: Mother, retina surgery Family Status Father: Living Mother: Living Paternal Grandfather: Paternal Grandmother: Maternal Grandfather: Maternal Grandmother: Brother 1: Living Sister 1: Living Procedure History: . cholestectomy in 1984 at 38 Years. resection of small instestine for ileitis with appendectomy x 2 surgeries in 1964 at 18 Years. Hx prostate biopsy. Social History . 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 Recreational Drug Use Recreational Drug Use: Denies Alcohol Use Alcohol Use: Denies Tobacco Use Tobacco Use: Current Tobacco Type: Cigarettes Cigarette Use Packs/Day: 0.5 pack per day Comment: or less Physical Examination VS/Measurements Documented vital signs: Blood Pressure ( Systolic 156 mmHg, Diastolic 90 mmHg, Sitting ), Pulse ( 54 beats per min ), Respiration ( 18 breaths/ min ), Temperature ( Tympanic 36.0 degrees Celsius ), Oxygen saturation 98 % , Estimated height ( 180.3 cms ), Measured weight ( 98.8 kgs ) 05/19/2010 [facility] Cardiology Documents Cardiology Documents 05/19/2010 [facility] Office/Clinic Notes Office/Clinic Notes Patient: NAJMA KELSEY Age: 64 years Sex: Male : [birth year] Associated Diagnoses: None Author: David Snell MD Visit Information Visit type: New symptom. Accompanied by: No one. Source of history: Self. History limitation: None. Chief Complaint Getting established. Patient taking medication for elevated Bp, doesn't feel that it is working, wanting to change. Wanting to get set up for physical exam. Patient's in [place] after a brief illiness. History of Present Illness The patient presents with sleeping problems. The symptom occurs constantly. The course is progressing as expected. The effect on daily activities is change in activity level. Associated symptoms awaking fatigued. since his had . Interval History Hypertension Blood pressure readings elevated. The course is worsening. There were disease related encounters including 0 erp consultant visits in the last year, 0 emergency department visits in the last year and 0 hospitalizations in the last year. No effect on daily activities. Exclusions Adherence Characterized by patient is taking meds as directed. Patient was placed on lisinopril approx 6 months ago, Bp has been elevated since.. Diabetes, Type 2 The effect on daily activities is no change in activity level, no change in ambulation, no change in eating habits, no change in sexual activity and no change in work/school duties. Associated symptoms characterized by no weight gain, weight loss, excessive hunger, excessive thirst or hyperglycemia. Cholesterol Management Total cholesterol results unknown. The course is progressing as expected. The effect on daily activities is no change in activity level and no change in eating habits. Associated symptoms characterized by fatigue, no chest pain, joint pain, muscle weakness or myalgias. Review of Systems Constitutional: Negative. Eye: Negative. Ear/Nose/Mouth/Throat: Negative. Respiratory: Negative. Cardiovascular: HTN, No chest pain, No palpitations, No bradycardia, No tachycardia, No peripheral edema. Gastrointestinal: Negative. Genitourinary: Normal for age. Hematology/Lymphatics: Negative. Endocrine: Negative. Immunologic: Negative. Musculoskeletal: Negative. Integumentary: Negative. Neurologic: Negative. Psychiatric: Negative. Health Status Allergies: . Allergic Reactions (Selected) NKA Current medications: . Prescriptions and Home Medications hydrochlorothiazide-lisinopril, 1 Tab, PO, QD, 25mg HCTZ 40mg Lisinopril daily metoprolol (metoprolol 100 mg oral tablet, extended release), 1 Tab, PO, daily, 30 Tab allopurinol (allopurinol 300 mg oral tablet), 300 mg, 1 Tab, PO, Q24H gemfibrozil (gemfibrozil 600 mg oral tablet), 600 mg, 1 Tab, PO, daily metformin (metformin 500 mg oral tablet, extended release), 1,000 mg, 2 Tab, PO , AT BEDTIME cholecalciferol (Vitamin D3 1000 intl units oral capsule), 0 Number of Refills, 2 capsules every AM omega-3 polyunsaturated fatty acids (Fish Oil oral capsule), 0 Number of Refills , 2000 mg daily vitamin E (vitamin E 400 intl units oral capsule), 400 IU, 1 Cap, PO, Q24H, Cap magnesium oxide, PO, Tab, 400 mg with zinc vitamin A (vitamin A 8000 units oral capsule), 0 Number of Refills, 1 tab daily chromium picolinate, 500 mcg, PO, QD, Tab, 2 tabs daily glucosamine, 500 mg, PO, Q24H, 2 tab daily milk thistle (Milk Thistle oral tablet), Maintenance, 05/11/10 11:49:16, 0 Number of Refills, 1000mg daily methylsulfonylmethane (MSM), Maintenance, 05/11/10 11:51:10, 0 Number of Refills , 1000 mg daily selenious acid (Selenium TR 200 mcg oral tablet), 0 Number of Refills, 1 tab daily garlic (Garlic oral capsule), Maintenance, 05/11/10 11:53:30, 0 Number of Refills, 1000mg 1 tab daily saw palmetto, 0 Number of Refills, 160 mg daily ginseng, Maintenance, 05/11/10 11:54:25, 0 Number of Refills, 400mg daily zinc gluconate (zinc gluconate 50 mg oral tablet), 0 Number of Refills, 1 tab daily ascorbic acid (Vitamin C 1000 mg oral tablet), 1 Tab, PO, daily, 30 Tab folic acid (folic acid 0.8 mg oral tablet), 0 Number of Refills, 1 tab daily alpha-lipoic acid (Alpha Lipoic), 0 Number of Refills, 200mg daily potassium gluconate, 0 Number of Refills, 99 mg 4 tabs daily multivitamin (Vitamin B Complex oral capsule), 1 Cap, PO, Q24H, 2 tabs daily etanercept (Enbrel 50 mg/mL subcutaneous solution), 0 Number of Refills, twice week Misc. Medication, 0 Number of Refills, Cinnamon 100 mg with Chromium 100mcg daily Misc. Medication, 0 Number of Refills, Lycopene 10 mg daily Histories Past Medical History: . No active or resolved past medical history items have been selected or recorded. Family History: . Neurological Past Medical History Migraines Medical History: Sibling Gastrointestinal Past Medical Hx Gastrointestinal, Other Medical History: Father, tumor growth at stomach lining Cardiovascular Past Medical History Heart Disease Medical History: Mother High Blood Pressure Medical History: Father Ocular Past Medical History Ocular, Other Medical History: Mother, retina surgery Family Status Father: Living Mother: Living Paternal Grandfather: Paternal Grandmother: Maternal Grandfather: Maternal Grandmother: Brother 1: Living Sister 1: Living Procedure History: . cholestectomy in 1984 at 38 Years. resection of small instestine for ileitis with appendectomy x 2 surgeries in 1964 at 18 Years. Hx prostate biopsy. Social History . 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 Recreational Drug Use Recreational Drug Use: Denies Alcohol Use Alcohol Use: Denies Tobacco Use Tobacco Use: Current Tobacco Type: Cigarettes Cigarette Use Packs/Day: 0.5 pack per day Comment: or less Physical Examination VS/Measurements Vital Signs 05/13/10 09:31 Temperature Tympanic 36.5 DegC Peripheral Pulse Rate 53 bpm Respiratory Rate 20 br/min Systolic Blood Pressure 156 mmHg Diastolic Blood Pressure 92 mmHg , Measurements from flowsheet : Measurements 05/13/10 09:31 Estimated Height 180.3 cm Weight 100.0 kg Documented vital signs: Blood Pressure ( Systolic 156 mmHg, Diastolic 92 mmHg, Sitting ), Pulse ( 53 beats per min ), Respiration ( 20 breaths/ min ), Temperature ( Tympanic 36.5 degrees Celsius ), Oxygen saturation 99 % , Estimated height ( 180.3 cms ), Measured weight ( 100.0 kgs ) General: Alert and oriented, No acute distress. Eye: Pupils are equal, round and reactive to light, Extraocular movements are intact. HENT: Normocephalic. Neck: Supple. Respiratory: Lungs are clear to auscultation, Respirations are non-labored, Breath sounds are equal, Symmetrical chest wall expansion, No chest wall tenderness. Cardiovascular: Normal rate, Regular rhythm, No murmur, No gallop, Good pulses equal in all extremities, No edema. Gastrointestinal: Soft, Non-tender, Non-distended, Normal bowel sounds, No organomegaly. Impression and Plan Diagnosis Hypertension (ICD9 401.9). Plan repeat blood pressure same will resume diovan /hct 160/25 po daily, bp check at follow up appointment, bring bp machine. Diagnosis Hyperlipidemia (ICD9 272.4). [facility] use of othe Medications (ICD9 V58.69). Screening for Prostate Cancer (ICD9 V76.44). Plan PowerOrders. Laboratory: T4 (Ordered): 05/13/10 10:10, Routine collect, Hyperlipidemia | [facility] use of othe Medications | Hypertension, [facility] GHP (Ordered) CBC with Diff (Ordered): 05/13/10 10:10, Routine collect, Hyperlipidemia | [facility] use of othe Medications, [facility] Chemistry Profile (Ordered): 05/13/10 10:10, Routine collect, Hyperlipidemia | [facility] use of othe Medications, [facility] Thyroid Stimulating Hormone (Ordered): 05/13/10 10:10, Routine collect, Hyperlipidemia | [facility] use of othe Medications, [facility] P7 (Lipid Panel) (Ordered): 05/13/10 10:10, Routine collect, Hyperlipidemia, [facility] PowerOrders. Laboratory: PSA--Free & Total (Ordered): 05/13/10 10:12, Routine collect, Screening for Prostate Cancer, [facility] Diagnosis Insomnia (ICD9 780.52). Plan PowerOrders. Pharmacy: Ambien 5 mg oral tablet (Ordered): 5 mg, 1 Tab, PO, AT BEDTIME, 30 Tab, PRN Diagnosis Prediabetes (ICD9 790.29). Plan PowerOrders. Laboratory: HgbA1C (Ordered): 05/13/10 10:16, Routine collect, Prediabetes, [facility] Counseled: Patient, Regarding diagnosis, Regarding medications, Diet, Activity. Patient Instructions: will recommend general physical, patient will call with progress report. 05/13/2010 [facility] Office/Clinic Notes Office/Clinic Notes Patient: NAJMA KELSEY Age: 64 years Sex: Male : [birth year] Associated Diagnoses: None Author: Ruchi Medellin LPN Visit Information Visit type: New symptom. Accompanied by: No one. Source of history: Self. History limitation: None. Chief Complaint Getting established. Patient taking medication for elevated Bp, doesn't feel that it is working, wanting to change. Wanting to get set up for physical exam. Patient's in Mar after a brief illiness. Interval History Hypertension Blood pressure readings elevated. The course is worsening. There were disease related encounters including 0 erp consultant visits in the last year, 0 emergency department visits in the last year and 0 hospitalizations in the last year. No effect on daily activities. Exclusions Adherence Characterized by patient is taking meds as directed. Patient was placed on lisinopril approx 6 months ago, Bp has been elevated since.. Review of Systems Cardiovascular: HTN. Health Status Allergies: . Allergic Reactions (Selected) NKA Current medications: . Prescriptions and Home Medications hydrochlorothiazide-lisinopril, 1 Tab, PO, QD, 25mg HCTZ 40mg Lisinopril daily metoprolol (metoprolol 100 mg oral tablet, extended release), 1 Tab, PO, daily, 30 Tab allopurinol (allopurinol 300 mg oral tablet), 300 mg, 1 Tab, PO, Q24H gemfibrozil (gemfibrozil 600 mg oral tablet), 600 mg, 1 Tab, PO, daily metformin (metformin 500 mg oral tablet, extended release), 1,000 mg, 2 Tab, PO , AT BEDTIME cholecalciferol (Vitamin D3 1000 intl units oral capsule), 0 Number of Refills, 2 capsules every AM omega-3 polyunsaturated fatty acids (Fish Oil oral capsule), 0 Number of Refills , 2000 mg daily vitamin E (vitamin E 400 intl units oral capsule), 400 IU, 1 Cap, PO, Q24H, Cap magnesium oxide, PO, Tab, 400 mg with zinc vitamin A (vitamin A 8000 units oral capsule), 0 Number of Refills, 1 tab daily chromium picolinate, 500 mcg, PO, QD, Tab, 2 tabs daily glucosamine, 500 mg, PO, Q24H, 2 tab daily milk thistle (Milk Thistle oral tablet), Maintenance, 05/11/10 11:49:16, 0 Number of Refills, 1000mg daily methylsulfonylmethane (MSM), Maintenance, 05/11/10 11:51:10, 0 Number of Refills , 1000 mg daily selenious acid (Selenium TR 200 mcg oral tablet), 0 Number of Refills, 1 tab daily garlic (Garlic oral capsule), Maintenance, 05/11/10 11:53:30, 0 Number of Refills, 1000mg 1 tab daily saw palmetto, 0 Number of Refills, 160 mg daily ginseng, Maintenance, 05/11/10 11:54:25, 0 Number of Refills, 400mg daily zinc gluconate (zinc gluconate 50 mg oral tablet), 0 Number of Refills, 1 tab daily ascorbic acid (Vitamin C 1000 mg oral tablet), 1 Tab, PO, daily, 30 Tab folic acid (folic acid 0.8 mg oral tablet), 0 Number of Refills, 1 tab daily alpha-lipoic acid (Alpha Lipoic), 0 Number of Refills, 200mg daily potassium gluconate, 0 Number of Refills, 99 mg 4 tabs daily multivitamin (Vitamin B Complex oral capsule), 1 Cap, PO, Q24H, 2 tabs daily etanercept (Enbrel 50 mg/mL subcutaneous solution), 0 Number of Refills, twice week Misc. Medication, 0 Number of Refills, Cinnamon 100 mg with Chromium 100mcg daily Misc. Medication, 0 Number of Refills, Lycopene 10 mg daily Histories Past Medical History: . No active or resolved past medical history items have been selected or recorded. Family History: . Neurological Past Medical History Migraines Medical History: Sibling Gastrointestinal Past Medical Hx Gastrointestinal, Other Medical History: Father, tumor growth at stomach lining Cardiovascular Past Medical History Heart Disease Medical History: Mother High Blood Pressure Medical History: Father Ocular Past Medical History Ocular, Other Medical History: Mother, retina surgery Family Status Father: Living Mother: Living Paternal Grandfather: Paternal Grandmother: Maternal Grandfather: Maternal Grandmother: Brother 1: Living Sister 1: Living Procedure History: . cholestectomy in 1984 at 38 Years. resection of small instestine for ileitis with appendectomy x 2 surgeries in 1964 at 18 Years. Hx prostate biopsy. Social History . 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
[2016-05-28 10:45] VITALS: BP 143/83
[2016-05-28 13:58] VITALS: BP 143/83
== END ==
LOC: SDC 10:22
PROVIDERS: ATTEND Internal Medicine
DX: E86.0 Dehydration (principal)
CPT/HCPCS: 96360; 96361

== ENCOUNTER 2016-10-05 17:16 | Emergency (ER) | payer OTHER, MEDICARE ==
[~2016-10-05] VITALS: Ht 180.3 cm; Wt 90.7 kg
[~2016-10-05 17:16] MED LIST changes: -NS IV 1000 ML 1,000 ML ONE
[2016-10-05] MEDS ORDERED: fentaNYL INJECTION 100 MCG/2 ML AMP ONE (17:17)
[2016-10-05] MEDS ORDERED: fentaNYL INJECTION 100 MCG/2 ML AMP IVP STA (17:35)
[2016-10-05] MEDS ORDERED: TETANUS,DIPTH,PERTUSS P/F (BOOSTRIX) 0.5 ML VIAL IM STA (17:39)
[2016-10-05 17:43] LABS: MEAN PLATELET VOLUME 10.1 FL (7.4-10.4); RED BLOOD COUNT 4.24 10^6/uL (4.35-5.85); RED CELL DISTRIBUTION WIDTH 15.5 % (10.0-14.5); WHITE BLOOD COUNT 10.2 10^3/uL (4.3-11.0)
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
[2016-10-05] MEDS ORDERED: HYDROmorphone (DILAUDID) 2 MG/ML VIAL ONE (17:56)
[2016-10-05] MEDS ORDERED: HYDROmorphone (DILAUDID) 2 MG/ML VIAL IVP STA ×2 (18:00→18:23)
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
[2016-10-05 18:03] LABS: ALANINE AMINOTRANSFERASE 33 U/L (0-55); ALBUMIN 3.8 GM/DL (3.2-4.5); ALCOHOL < 10 MG/DL (<10); ANION GAP 14 MMOL/L (5-14); ASPARTATE AMINO TRANSFERASE 44 U/L (5-34); BILIRUBIN,DIRECT 0.3 MG/DL (0.0-0.3); BILIRUBIN,INDIRECT 0.7 MG/DL; BLOOD UREA NITROGEN 29 MG/DL (7-18); BUN/CREATININE RATIO 15; CALCIUM 8.9 MG/DL (8.5-10.1); CARBON DIOXIDE 16 MMOL/L (21-32); CHLORIDE 113 MMOL/L (98-107); CREATININE SERUM 1.92 MG/DL (0.60-1.30); GFR ESTIMATED 35; GLUCOSE 223 MG/DL (70-105); POTASSIUM 4.5 MMOL/L (3.6-5.0); SODIUM 143 MMOL/L (135-145); TOTAL PROTEIN 7.6 GM/DL (6.4-8.2)
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
[2016-10-05 18:09] LABS: TROPONIN I < 0.30 NG/ML (<0.30)
[2016-10-05] MEDS ORDERED: IOHEXOL 350 MG/ML 100 ML (OMNIPAQUE 350) VIAL IV ONE (18:15)
[2016-10-05] MEDS ORDERED: NS 100 ML (IVPB) BAG IV ONE (18:15)
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
[2016-10-05 19:09] LABS: BILIRUBIN,URINE NEGATIVE (NEGATIVE); KETONES,URINE NEGATIVE (NEGATIVE); LEUKOCYTE ESTERASE ,URINE NEGATIVE (NEGATIVE); NITRITE,URINE NEGATIVE (NEGATIVE); PH,URINE 6 (5-9); PROTEIN,URINE 3+ (NEGATIVE); UROBILINOGEN,URINE NORMAL (NORMAL)
[2016-10-05 19:30] VITALS: BP 156/88
[2016-10-05] MEDS ORDERED: HYDROmorphone (DILAUDID) 2 MG/ML VIAL IVP PRN (19:30)
== END 2016-10-05 19:30 | disposition short-term general hospital (02) ==
LOC: EDUNIT# 17:16 → ER 17:17
DX: S12.191A Other nondisplaced fracture of second cervical vertebra, initial encounter for closed fracture (principal); R73.09 Other abnormal glucose; N19 Unspecified kidney failure; V89.2XXA Person injured in unspecified motor-vehicle accident, traffic, initial encounter
CPT/HCPCS: 36415; 51702; 70450; 71010; 71260; 72125; 72170; 74177; 80048; 80076; 80320; 81000; 84484; 85027; 93005; 93041; 96374; 96375; 96376